=== PATIENT | female | born 1970 ===

== ENCOUNTER 2021-01-01 10:59 | Outpatient (REF) | payer OTHER, SELFPAY ==
[2021-01-01 13:59] LABS: MANUAL DIFF FLAG NO
[2021-01-01 14:11] LABS: Basophils Percent Auto 0.6 % (0-2); Eosinophils Absolute Auto 0.5 X10*3/uL (0.0-0.4); Eosinophils Percent Auto 7.2 % (0-4); Hematocrit 41.4 % (37-47); Hemoglobin 13.1 g/dl (12.0-16.0); Imm Gran Abs Auto 0.01 X10*3/uL (0.00-0.03); Imm Gran Pct Auto 0.2 % (0.0-0.4); Lymphocytes Absolute Auto 2.3 X10*3/uL (1.2-4.9); Lymphocytes Percent Auto 34.2 % (20-40); Mean Corpuscular HGB Conc 31.6 g/dl (31.0-35.0); Mean Corpuscular Hemoglobin 30.4 pg (27.0-33.0); Mean Corpuscular Volume 96.1 fL (80-98); Mean Platelet Volume 9.5 fL (9.4-12.3); Monocytes Absolute Auto 0.5 X10*3/uL (0.1-1.2); Monocytes Percent Auto 6.9 % (2-11); Neutrophils Absolute Auto 3.4 X10*3/uL (2.0-8.3); Neutrophils Percent Auto 50.9 % (45-73); Platelet Count 317 X10*3/uL (160-400); Red Blood Count 4.31 X10*6/uL (4.20-5.50); Red Cell Distribution Width 12.5 % (11.0-16.0); White Blood Count 6.6 X10*3/uL (4.8-10.8)
[2021-01-01 14:21] LABS: Alanine Aminotransferase 18 U/L (0-31); Anion Gap 16 (12-20); Aspartate Amino Transferase 16 U/L (5-31); Blood Urea Nitrogen 13 mg/dL (9-16); Carbon Dioxide 29 mmol/L (22-29); Chloride 100 mmol/L (96-108); Cholesterol 186 mg/dL; Estimated Glomerular Filt Rate > 60; Glucose Fasting 147 mg/dL (60-99); HDL Cholesterol 47 mg/dL; LDL Cholesterol Calculated 119 mg/dl; Potassium 4.9 mmol/L (3.3-5.1); Sodium 140 mmol/L (135-145); Triglycerides 103 mg/dL
[2021-01-01 14:45] LABS: TSH reflex Free T4 0.95 uIU/mL (0.32-4.0); Vitamin D 25-OH Total 31.4 ng/mL (>30)
[2021-01-01 14:50] LABS: Creatinine Urine 144.41 mg/dL; Microalbum/Creatinine Ratio Ur 7.6 ug/mg cr
== END 2021-01-01 11:00 | disposition home or self-care (01) ==
LOC: HO.LAB 10:59
PROVIDERS: PCP Internal Medicine; Visit Provider Internal Medicine
DX: E11.65 Type 2 diabetes mellitus with hyperglycemia (principal); E78.5 Hyperlipidemia, unspecified; I10 Essential (primary) hypertension; Z78.0 Asymptomatic menopausal state
CPT/HCPCS: 36415; 80048; 80061; 82043; 82306; 84443; 84450; 84460; 85025

== ENCOUNTER → 2021-02-17 08:33 | Outpatient (BNVA) | payer OTHER, SELFPAY | PROVIDERS: PCP Internal Medicine; Referring Provider Internal Medicine; Visit Provider Internal Medicine Gastroenterology | DX: Z01.818 Encounter for other preprocedural examination (principal) | CPT/HCPCS: 99202 ==

== ENCOUNTER 2021-02-27 08:12 | Outpatient (REF) | payer OTHER, SELFPAY ==
[2021-02-28 12:49] LABS: BV Int Neg Control Negative (Negative); BV Int Pos Control Positive (Positive)
== END 2021-02-27 08:13 | disposition home or self-care (01) ==
LOC: HO.LAB 08:12
PROVIDERS: PCP Internal Medicine; Visit Provider Obstetrics & Gynecology
DX: Z01.419 Encounter for gynecological examination (general) (routine) without abnormal findings (principal); Z11.3 Encounter for screening for infections with a predominantly sexual mode of transmission; N89.8 Other specified noninflammatory disorders of vagina
CPT/HCPCS: 87480; 87510; 87660

== ENCOUNTER 2021-02-28 09:58 | Outpatient (REF) | payer OTHER, SELFPAY ==
--- NOTE | ~2021-02-28 | MM_ITS ---
EXAMINATION: MM SCREENING DIGITAL BREAST TOMOSYNTHESIS, BILATERAL CLINICAL INFORMATION: Screening. Asymptomatic. The lifetime risk of breast cancer based on the Tyrer-Cuzick Model is 9%. COMPARISON: Outside mammography: 09/28/2019, 08/10/2018, 07/19/2017 ([facility]). TECHNIQUE: Digital breast tomosynthesis is performed in both the craniocaudal and mediolateral oblique views along with computer-aided detection (CAD). Synthesized 2D images are generated from the tomosynthesis. Additional bilateral CC views are provided. FINDINGS: There are scattered areas of fibroglandular density (ACR BI-RADS breast composition Category b). Breast tissue composition borders on predominantly fatty. Background stromal and fibroglandular markings are stable. There is a small oval stable nodular asymmetry medial periareolar left breast similar to prior exams. Neither breast shows interval mass or architectural abnormality or abnormal calcifications. No significant changes. MM/MM tomosynthesis screening BI IMPRESSION: No mammographic evidence of malignancy. No significant changes from prior outside exams. ASSESSMENT: BI-RADS 2: Benign RECOMMENDATION: Routine annual mammography screening. This patient's information was entered into a reminder system with a target due date for their next mammogram.
== END 2021-02-28 09:59 | disposition home or self-care (01) ==
LOC: HO.MAMMO 09:58
PROVIDERS: Visit Provider Internal Medicine
DX: Z12.31 Encounter for screening mammogram for malignant neoplasm of breast (principal)
CPT/HCPCS: 77063; 77067

== ENCOUNTER 2021-04-02 09:31 | Day surgery (SDC) | payer OTHER, SELFPAY ==
[2021-03-26 11:05] VITALS: BMI 43.3
--- NOTE | 2021-04-01 09:46 | P.CONAN_ITS ---
Documented by User: Janet Kochney 04/01/21 09:47 HPI - Anesthesia Eval Consult details Narrative: 50yo F for Colonoscopy *No blood products* [facility] Active Problems Active Problems: All Active Problems (Updated 02/27/21 @ 08:36 by Lauren Dutton MD) Morbid obesity due to excess calories (Acute) Postmenopause (Acute) Tendinitis of finger of right hand (Acute) Allergic rhinitis (Acute) Essential hypertension (Acute) Dyslipidemia (high LDL; low HDL) (Acute) Diabetes mellitus with hyperglycemia, without long-term current use of insulin (Acute) Past Medical History Medical History Allergic rhinitis Diabetes mellitus with hyperglycemia, without long-term current use of insulin Dyslipidemia (high LDL; low HDL) Essential hypertension Fibromyalgia Morbid obesity due to excess calories Postmenopause Refusal of blood product Tendinitis of finger of right hand Family History Family History Father No problems noted. Mother No problems noted. Surgical History Surgical History Hx of section Hx of umbilical hernia repair Social History Social History Alcohol intake: current Alcohol intake frequency: holidays/special occasions only Patient Tobacco Use Status: Never used Tobacco Use of substances other than those prescribed or required for medical reasons: No Are you DNR?: No Advance Directives Information Provided: No Recently lost weight without trying: No Eating poorly because of decreased appetite: No Nutrition Risks: No Nutritional Risk Gender identity: female Meds Allergies Allergy/AdvReac Type Severity Reaction Status Date / Time Seasonal Allergies Allergy Mild runny Verified 04/02/21 09:42 nose, watery eyes Home Medications Medication Instructions Recorded Confirmed Last Taken Type albuterol sulfate 90 mcg/actuation 2 puff PO QID PRN 01/01/21 03/26/21 Unknown History aerosol inhaler aspirin 81 mg tablet,delayed 81 mg PO DAILY 01/01/21 03/26/21 04/01/21 07:00 History release cholecalciferol (vitamin D3) 25 25 mcg PO DAILY 01/01/21 03/26/21 Unknown History mcg (1,000 unit) capsule enalapril maleate 10 mg tablet 10 mg PO DAILY 01/01/21 03/26/21 Unknown History magnesium glycinate 100 mg tablet 100 mg PO DAILY 01/01/21 03/26/21 Unknown History metformin 500 mg tablet,extended 1,000 mg PO DAILY 01/01/21 03/26/21 Unknown History release 24 hr simvastatin 40 mg tablet 40 mg PO BEDTIME 01/01/21 03/26/21 Unknown History Exam Exam Date and Time: April 01, 2021 0946 Height,Weight and Vital Signs: Height 5 ft 2 in Weight 107.501 kg Assessment and Plan Assessment Anesthesia Assessment: Chart Reviewed Documented by User: Yessenia Choudhary 04/02/21 10:04 [facility] Past Medical History Medical History Allergic rhinitis Diabetes mellitus with hyperglycemia, without long-term current use of insulin Dyslipidemia (high LDL; low HDL) Essential hypertension Fibromyalgia Morbid obesity due to excess calories Postmenopause Refusal of blood product Tendinitis of finger of right hand Family History Family History Father No problems noted. Mother No problems noted. Surgical History Surgical History Hx of section Hx of umbilical hernia repair Social History Social History Alcohol intake: current Alcohol intake frequency: holidays/special occasions only Patient Tobacco Use Status: Never used Tobacco Use of substances other than those prescribed or required for medical reasons: No Are you DNR?: No Advance Directives Information Provided: No Recently lost weight without trying: No Eating poorly because of decreased appetite: No Nutrition Risks: No Nutritional Risk Gender identity: female Meds Allergies Allergy/AdvReac Type Severity Reaction Status Date / Time Seasonal Allergies Allergy Mild runny Verified 04/02/21 09:42 nose, watery eyes Home Medications Medication Instructions Recorded Confirmed Last Taken Type albuterol sulfate 90 mcg/actuation 2 puff PO QID PRN 01/01/21 03/26/21 Unknown History aerosol inhaler aspirin 81 mg tablet,delayed 81 mg PO DAILY 01/01/21 03/26/21 04/01/21 07:00 History release cholecalciferol (vitamin D3) 25 25 mcg PO DAILY 01/01/21 03/26/21 Unknown History mcg (1,000 unit) capsule enalapril maleate 10 mg tablet 10 mg PO DAILY 01/01/21 03/26/21 Unknown History magnesium glycinate 100 mg tablet 100 mg PO DAILY 01/01/21 03/26/21 Unknown History metformin 500 mg tablet,extended 1,000 mg PO DAILY 01/01/21 03/26/21 Unknown History release 24 hr simvastatin 40 mg tablet 40 mg PO BEDTIME 01/01/21 03/26/21 Unknown History Exam Airway Mallampati Class: II TM Dist: >3cm Neck ROM: Full Loose/Missing/Broken Teeth: No Heart: RRR Lungs: CTA Assessment and Plan Assessment Anesthesia Assessment: Anesthesia Plan Discussed and Chart Reviewed Final Anesthetic Review NPO: Yes ASA Class: III Final Preanesthetic Review: Meds/Allgs Chart Reviewed, Consent Obtained/Reviewed and Anes Risks/Benef Reviewed Patient Risk: Intermediate Procedure Risk: Low Anesthetic Plan Anesthetic Plan: MAC: Disposition: Standard PACU
[2021-04-02] MEDS: Lactated Ringers 1,000 ML 100 ML IVCONT (10:15)
[2021-04-02 10:18] VITALS: BP 150/94; PULSE 105; RESP 18; TEMP 37; O2SAT 98
[2021-04-02 10:22] LABS: Glucose, Whole Blood 156 mg/dL (60-115)
--- NOTE | 2021-04-02 11:32 | MHC.SHP ---
Pre-Procedural Eval Section A Date of Service: 04/02/21 Section B Chief Complaint: screening Relevant Family History (Specify if Yes): No Relevant Social History: None Present Medications: see Short Stay Collaborative assessment Medical History: Significant History (Allergic rhinitis Diabetes mellitus with hyperglycemia, without long-term current use of insulin Dyslipidemia (high LDL; low HDL) Essential hypertension Fibromyalgia Morbid obesity due to excess calories Postmenopause Refusal of blood product Tendinitis of finger of right hand) History of Previous Operations: Relevant previous surgery/procedure and date(s) (, umbilical hernia repair) Allergies: Allergies Allergy/AdvReac Type Severity Reaction Status Date / Time Seasonal Allergies Allergy Mild runny Verified 04/02/21 09:42 nose, watery eyes Review of Systems Sugical H&P ROS: Negative: Constitution, Cardiovascular, Respiratory, Neurological, Psychiatric, Hem-Onc, Allergic/Immunologic, Gastrointestinal, Genitourinary, Musculoskeletal, Integumentary, Endocrine and Eyes/Ears/Nose/Throat Exam Surgical H&P Exam: Normal: HEENT, Normal: Heart, Normal: Lungs, Normal: Extremities, Normal: Abdomen, Normal: Skin and Normal: Neurological Plan Diagnosis/Plan: Unchanged I have reviewed the history and physical and performed a pertinent physical examination on my patient. No changes have occurred unless specified.
--- NOTE | 2021-04-02 11:33 | P.BOP_ITS ---
Brief Operative Note Date of Service: 04/02/21 Pre-op diagnosis: colon screening Post-op diagnosis: same Procedure: see op note Surgeon: Jerome England MD Anesthesia: MAC Was an Promotions Director used for this Procedure?: No Estimated blood loss (mL): 0 Condition: stable Disposition: PACU
--- NOTE | 2021-04-02 11:34 | W.PM.OPN ---
Operative Note Operative Note Date of Service: 04/02/21 Narrative: Operative Information Procedure Description: Colonoscopy COLONOSCOPY Instrument: Olympus variable stiffness adult scope 190L Colonoscopy Monitoring: Vital signs and clinical assessment, continuous EKG monitoring, Pulse oximetry, Carbon Dioxide monitoring and blood pressure monitoring were done throughout the procedure. Colon withdrawal time was 8 minutes. Procedure: The patient was placed in the left lateral decubitis position and pre-procedure medications were administered. After a digital rectal examination of the ano-rectum, the video colonoscope was inserted into the rectum and advanced through the colon to the cecum/TI. The colonoscope was slowly withdrawn in a retrograde panoramic fashion and the colon mucosa was carefully examined including a retroflexed view of the rectum. Findings and interventions are described below. Procedure Difficulty: Findings: Terminal Ileum-normal Cecum:normal Ascending Colon: normal Transverse Colon -normal Descending Colon:normal Sigmoid Colon: normal Rectum: Retroflexion with small internal hemorrhoids, grade I Anorectum - normal Colon preparation: Nikolski Bowel Preparation Scale Right colon; 2 Transverse colon: 3 Left colon; 2 (0 = Unprepared colon segment with mucosa not seen due to solid stool that cannot be cleared. 1 = Portion of mucosa of the colon segment seen, but other areas of the colon segment not well seen due to staining, residual stool and/or opaque liquid. 2 = Minor amount of residual staining, small fragments of stool and/or opaque liquid, but mucosa of colon segment seen well. 3 = Entire mucosa of colon segment seen well with no residual staining, small fragments of stool or opaque liquid) Impression and Post Procedure Diagnosis: internal hemorrhoids Plan: High fiber diet leaflet Avoid straining at stool, epsom salts and sitz bath, anusol supps or cream prn Repeat Colonoscopy in 10 years or earlier if clinically indicated Above findings were reviewed with the patient and relevant handouts were provided if indicated.
[2021-04-02 12:14] VITALS: BP 109/63; PULSE 111; RESP 14; TEMP 37.2; O2SAT 97
[2021-04-02 12:29] VITALS: BP 108/67; PULSE 102; RESP 18; TEMP 36.4; O2SAT 95
== END 2021-04-02 12:58 | disposition home or self-care (01) ==
PROVIDERS: PCP Internal Medicine; Visit Provider Internal Medicine Gastroenterology
PROC: 0DJD8ZZ Inspection of Lower Intestinal Tract, Via Natural or Artificial Opening Endoscopic (ICD-10-PCS; CPT 45378; principal; 2021-04-02 11:10)
DX: Z12.11 Encounter for screening for malignant neoplasm of colon (principal); K64.0 First degree hemorrhoids; I10 Essential (primary) hypertension; E66.01 Morbid (severe) obesity due to excess calories; E11.65 Type 2 diabetes mellitus with hyperglycemia; E78.5 Hyperlipidemia, unspecified; J30.9 Allergic rhinitis, unspecified; M79.7 Fibromyalgia; Z79.84 Long term (current) use of oral hypoglycemic drugs; Z79.899 Other long term (current) drug therapy
CPT/HCPCS: 45378; 82947; J2405; J2765

== ENCOUNTER → 2021-04-28 12:54 | Outpatient (BNVA) | payer OTHER, SELFPAY | PROVIDERS: PCP Internal Medicine; Referring Provider Internal Medicine; Visit Provider Internal Medicine Gastroenterology ==

== ENCOUNTER 2021-09-28 11:59 | Outpatient (REF) | payer OTHER, SELFPAY ==
[2021-09-28 13:14] LABS: Influenza A PCR NEGATIVE (Negative); Influenza B PCR NEGATIVE (Negative); Resp Syncy Virus RNA Qual PCR NEGATIVE (Negative); SARS COV2 PCR INHOUSE NEGATIVE (Negative)
== END 2021-09-28 12:00 | disposition home or self-care (01) ==
LOC: HO.LNP 11:59
PROVIDERS: Visit Provider Physician Assistant
DX: B34.9 Viral infection, unspecified (principal); Z20.822 Contact with and (suspected) exposure to COVID-19
CPT/HCPCS: 0241U

== ENCOUNTER 2022-03-06 09:40 | Outpatient (REF) | payer OTHER, SELFPAY ==
--- NOTE | ~2022-03-06 | MM_ITS ---
EXAMINATION: MM SCREENING DIGITAL BREAST TOMOSYNTHESIS, BILATERAL CLINICAL INFORMATION: Screening. Asymptomatic. The lifetime risk of breast cancer based on the Tyrer-Cuzick Model is 8%. COMPARISON: Mammography: 02/28/2021, outside mammography 09/28/2019, 08/10/2018 ([facility]). TECHNIQUE: Digital breast tomosynthesis is performed in both the craniocaudal and mediolateral oblique views along with computer-aided detection (CAD). Synthesized 2D images are generated from the tomosynthesis. FINDINGS: There are scattered areas of fibroglandular density (ACR BI-RADS breast composition Category b). Background stromal and fibroglandular densities are stable. Parenchymal pattern borders on predominantly fatty. There are no significant masses, abnormal calcifications, or other abnormalities. The axilla and skin contours are unremarkable. MM/MM tomosynthesis screening BI IMPRESSION: No mammographic evidence of malignancy. ASSESSMENT: BI-RADS 1: Negative RECOMMENDATION: Routine annual mammography screening. This patient's information was entered into a reminder system with a target due date for their next mammogram.
== END 2022-03-06 09:41 | disposition home or self-care (01) ==
LOC: HO.MAMMO 09:40
PROVIDERS: PCP Internal Medicine; Visit Provider Internal Medicine
DX: Z12.31 Encounter for screening mammogram for malignant neoplasm of breast (principal)
CPT/HCPCS: 77063; 77067

== ENCOUNTER 2022-09-01 07:36 | Outpatient (REF) | payer OTHER, SELFPAY ==
[2022-09-01 11:23] LABS: MANUAL DIFF FLAG NO
[2022-09-01 11:33] LABS: Basophils Percent Auto 0.6 % (0-2); Eosinophils Absolute Auto 0.3 X10*3/uL (0.0-0.4); Eosinophils Percent Auto 3.7 % (0-4); Imm Gran Abs Auto 0.03 X10*3/uL (0.00-0.03); Imm Gran Pct Auto 0.4 % (0.0-0.4); Lymphocytes Absolute Auto 2.7 X10*3/uL (1.2-4.9); Mean Corpuscular HGB Conc 31.7 g/dl (31.0-35.0); Mean Corpuscular Hemoglobin 31.1 pg (27.0-33.0); Mean Corpuscular Volume 98.1 fL (80.0-98.0); Mean Platelet Volume 9.7 fL (9.4-12.3); Monocytes Absolute Auto 0.5 X10*3/uL (0.1-1.2); Monocytes Percent Auto 7.3 % (2-11); Neutrophils Absolute Auto 3.2 x10*3/uL (2.0-8.3); Platelet Count 301 X10*3/uL (160-400); Red Blood Count 4.18 X10*6/uL (4.20-5.50); Red Cell Distribution Width 12.8 % (11.0-16.0); White Blood Count 6.7 X10*3/uL (4.8-10.8)
[2022-09-01 11:42] LABS: Estimated Average Glucose 229 mg/dL; Hemoglobin A1c % 9.6 %
[2022-09-01 12:37] LABS: Creatinine Urine 220.93 mg/dL; Microalbum/Creatinine Ratio Ur 8.1 ug/mg cr
[2022-09-01 12:39] LABS: Alanine Aminotransferase 20 U/L (0-31); Alkaline Phosphatase 77 U/L (39-117); Anion Gap 14 (12-20); Aspartate Amino Transferase 14 U/L (5-31); Bilirubin Total 0.2 mg/dL (0.0-1.0); Blood Urea Nitrogen 11 mg/dL (9-16); Calcium 8.4 mg/dL (8.4-10.2); Carbon Dioxide 29 mmol/L (22-29); Chloride 101 mmol/L (96-108); Cholesterol 232 mg/dL; Estimated Glomerular Filt Rate > 60; Glucose Fasting 232 mg/dL (60-99); HDL Cholesterol 45 mg/dL; LDL Cholesterol Calculated 154 mg/dl; Potassium 4.6 mmol/L (3.3-5.1); Sodium 139 mmol/L (135-145); TSH reflex Free T4 1.88 uIU/mL (0.32-4.0); Total Protein 7.4 g/dL (6.5-8.0); Triglycerides 165 mg/dL; Vitamin D 25-OH Total 21.8 ng/mL (>30)
[2022-09-02 08:59] LABS: Follicle Stimulating Hormone 7.7 mIU/mL
== END 2022-09-01 07:37 | disposition home or self-care (01) ==
LOC: HO.HMGCLDS 07:36
PROVIDERS: Advanced Practice Midwife; PCP Internal Medicine; Visit Provider Internal Medicine
DX: E11.65 Type 2 diabetes mellitus with hyperglycemia (principal); E66.01 Morbid (severe) obesity due to excess calories; E78.5 Hyperlipidemia, unspecified; J45.20 Mild intermittent asthma, uncomplicated; K58.0 Irritable bowel syndrome with diarrhea; R23.2 Flushing; Z78.0 Asymptomatic menopausal state
CPT/HCPCS: 36415; 80053; 80061; 82043; 82306; 83001; 83036; 84443; 85025

== ENCOUNTER 2022-09-21 12:38 | Outpatient (AMB) | payer OTHER, SELFPAY ==
--- NOTE | 2022-09-21 12:46 | A.OFFPC_ITS ---
Vital Signs 09/21/22 12:47 Height 5 ft 2 in Weight 230 lb BMI 42.0 BP 124/90 H Blood Pressure Location Lt brachial Position Sitting Pulse 95 Pulse Source Pulse Oximeter Pulse Oximetry (%) 97 Oxygen Delivery Method Room Air Intake Visit Reasons: f/u DM Intake Note: Pt is here today to f/u DM Allergies Seasonal Allergies Allergy (Mild, Verified 08/05/23 10:49) runny nose, watery eyes Medication List - Last Reconciled 09/21/22 by Jayshree Marcos MD albuterol sulfate 90 mcg/actuation 2 puffs PO QID PRN albuterol sulfate 2.5 mg (3 mL) inhalation QID PRN blood sugar diagnostic (FreeStyle Lite Strips) check fasting blood sugar twice a day before a meal blood sugar diagnostic (FreeStyle Lite Strips) Check fasting blood sugar twice a day before meals blood-glucose meter (FreeStyle Lite Meter kit) Fasting glucose twice a day before meals and keep a record cholecalciferol (vitamin D3) 1,250 mcg PO QWEEK 3 months enalapril maleate 10 mg PO DAILY loratadine 10 mg PO DAILY metformin 1,000 mg PO DAILY naproxen 500 mg PO DAILY PRN simvastatin 40 mg PO BEDTIME Tobacco use date assessed: 09/21/22 HPI f/u DM HPI Details 51-year-old lady with diabetes mellitus, dyslipidemia and hypertension, here today for follow-up. She is currently taking metformin, simvastatin and enalapril maleate. Recent labs showed hemoglobin A1c at 9.6% and LDL cholesterol above normal limits. She admits to letting herself go more recently after a sudden, traumatic loss of her brother. Has not been checking her blood sugar and has not been taking her metformin on regular basis [facility] Medical History Toe injury Mixed dyslipidemia Vitamin D deficiency Irritable bowel syndrome with diarrhea Environmental and seasonal allergies Mild intermittent asthma Arthralgia Refusal of blood product Fibromyalgia Morbid obesity due to excess calories Postmenopause Tendinitis of finger of right hand Essential hypertension Dyslipidemia (high LDL; low HDL) Diabetes mellitus with hyperglycemia, without long-term current use of insulin Surgical History Hx of colonoscopy Hx of umbilical hernia repair Hx of section Family History Father No problems noted. Mother No problems noted. 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 Depression Screening Interpretation: Negative Source: Developed by Drs. Paul Ramirez, Yue Roman, Luis Perry and colleagues, with an educational billy from [employer]. Thrive Questionnaire Date Thrive assessed: 04/09/21 KAMRAN-7 AMB Questionnaire KAMRAN-7 Date KAMRAN - 7 assessed: 03/18/22 Source: Developed by Drs. Paul Ramirez, Yue Roman, Luis Perry and colleagues, with an educational billy from [employer]. Review of Systems Const Reports no additional complaints and Reports fatigue Eyes Denies change in vision ENT Reports no additional complaints Card Denies rapid heart rate, Denies dyspnea and Denies dyspnea on exertion Resp Denies dyspnea and Denies dyspnea on exertion GI Denies dyspepsia and Denies heartburn Reports no additional complaints Musc Denies arthralgias and Denies muscle cramps Skin/Breast Denies breast pain, Denies breast mass, Denies lesions and Denies rash Neuro Denies focal weakness, Denies Other visual disturbances and Denies Sensory deficit (Neuro) Endo Reports fatigue, Reports polydipsia and Reports polyuria Kamran/Lymph Reports no additional complaints Physical exam (Primary Care) Vital Signs: Last Vital Signs Pulse 95 09/21/22 12:47 BP 124/90 H 09/21/22 12:47 Pulse Ox 97 09/21/22 12:47 Oxygen Delivery Method Room Air 09/21/22 12:47 BMI result Body Mass Index 42.0 BMI Assessment/Plan discussion: High BMI High, discussed plan: lifestyle, weight reduction, dietary and physical activity Tobacco/Smoking Status: Tobacco use Status Tobacco use date assessed 09/21/22 09/21/22 12:50 Patient Tobacco Use Status Never used Tobacco 09/21/22 12:50 e-Cigarette/Vaping Use Never Used 09/21/22 12:50 Depression Screening Interpretation: Negative Thrive Assessment: Date of Thrive Assessment Date Thrive assessed 04/09/21 09/21/22 12:50 Const General: comfortable, no acute distress and alert Nutritional Appearance: obese morbidly obese Orientation/consciousness: patient oriented x3 HENMT Head: Yes normocephalic Ears: external ears normal General nose exam: Normal external nose present Face and sinus: Yes face symmetric Mouth: Normal oral and palatal mucosa present, tongue normal, oropharynx normal and moist mucous membranes abnormal Eyes General: appearance normal, both eyes and all related structures Neck Neck: Yes full ROM, Yes no lymphadenopathy and Yes supple Thyroid: Thyroid normal Resp Effort & Inspection: normal respiratory effort and able to speak in complete sentences Auscultation: clear to auscultation bilaterally Cardio Rate: regular rate Rhythm: regular rhythm Heart sounds: S1 normal heart sound present and S2 normal heart sound present GI Inspection: Yes obesity Palpation (GI): Soft to palpation, nontender, no guarding and no masses Auscultation: normal bowel sounds General: Yes no CVA tenderness and Yes deferred Back/Spine/Pelvis Back: no CVA tenderness and No back tenderness Skin General skin exam: no rashes or lesions noted Neuro General: patient oriented x3, gait normal, tone normal, moves all extremities, Normal light touch and pain sensation, no focal motor deficits, CN's II-XI intact bilaterally and normal sensation to monofilament Cognition (Neuro): normal cognition Gait exam (Neuro): Normal gait present Sensory Exam: No Sensory deficit (Neuro) Extrem General: Yes full ROM, Yes no joint enlargement, Yes no clubbing, cyanosis or edema, Yes no pedal edema, Yes no calf tenderness and Yes normal gait Results Reviewed Results Reviewed: Laboratory Tests 09/01/22 07:42 Estimat Average Glucose 229 Hemoglobin A1c % 9.6 ENTERED: 09/01/22 [facility]: ORDERED: CBC Auto Diff Test Result Flag Reference Site WBC 6.7 4.8-10.8 X10*3/uL RBC 4.18 L 4.20-5.50 X10*6/uL HGB 13.0 12.0-16.0 g/dl HCT 41.0 37.0-47.0 % MCV 98.1 H 80.0-98.0 fL MCH 31.1 27.0-33.0 pg MCHC 31.7 31.0-35.0 g/dl RDW 12.8 11.0-16.0 % ENTERED: 09/01/22 [facility]: ORDERED: CMP Fast, Lipid Panel, Vitamin D 25-OH, TSH Rflx Test Result Flag Reference Site Sodium 139 135-145 mmol/L Potassium 4.6 3.3-5.1 mmol/L CL 101 96-108 mmol/L CO2 29 22-29 mmol/L Gap 14 12-20 BUN 11 9-16 mg/dL Creat 0.84 0.5-1.4 mg/dL EGFR > 60 NOTE: For -[place] individuals, multiply the result by 1.210. Chronic Kidney Disease: Estimated GFR < 60 mL/min/1.73m2 Severe Kidney Disease: Estimated GFR < 15 mL/min/1.73m2 FBS 232 H 60-99 mg/dL A fasting glucose of 126 mg/dl or greater on more than one occasion is considered diagnostic of diabetes. CA 8.4 # 8.4-10.2 mg/dL Total Bili 0.2 0.0-1.0 mg/dL AST (GOT) 14 5-31 U/L ALT (GPT) 20 0-31 U/L Protein, Total 7.4 6.5-8.0 g/dL Alb 4.0 3.5-5.0 g/dL Triglyceride 165 mg/dL Desirable Triglyceride: less than 150 mg/dL Borderline High Triglyceride 150-199 mg/dL High Triglyceride: 200-499 mg/dL Very High Triglyceride: greater than or equal to 5OO mg/dL Chol 232 mg/dL Desirable Cholesterol: less than 200 mg/dL Borderline High Cholesterol: 200-239 mg/dL High Cholesterol: greater than 239 mg/dL LDL Calculated 154 mg/dl Desirable LDL: less than 100 mg/dL Near Optimal/Above Optimal LDL: 110-129 mg/dL Borderline High LDL: 130-159 mg/dL High LDL: 160-189 mg/dL Very High LDL: greater than or equal to 190 mg/dL HDL 45 mg/dL Desirable HDL: greater than 40 mg/dL Note: This HDL assay may give artificially low results in patients with liver disease. Alk Phos 77 39-117 U/L Vit D 25-OH Tot 21.8 >30 ng/mL Health Based Reference Values* < 20 ng/mL Deficient 20-30 ng/mL Insufficient > 30 ng/mL Sufficient *Binh FELIX. N Engl J Med. 2007;357:266-280 Care must be taken in interpreting Vitamin D results from different laboratories and methodologies. Published data demonstrated that results from patients undergoing hemodialysis may show a negative bias when tested with various automated 25-OH vitamin D assays when compared to LC-MS/MS. When testing samples from patients whose predominant form of Vitamin D is Vitamin D2, such as patients receiving Vitamin D2 supplementation, results that are subtherapeutic should be confirmed with another method such as LC-MS/MS. TSH 1.88 0.32-4.0 uIU/mL PLT 301 160-400 X10*3/uL Assessment and Plan Assessment & Plan (1) Diabetes mellitus with hyperglycemia, without long-term current use of insulin: Comment: NIDDM Code(s): E11.65 - Type 2 diabetes mellitus with hyperglycemia Qualifiers: Diabetes mellitus type: type 2 Qualified Code(s): E11.65 - Type 2 diabetes mellitus with hyperglycemia Plan: Advised to start taking her metformin a 1000 mg 1 tablet twice a day with meals on a regular basis, check fasting blood sugar at home, maintain log and bring to next appointment for review. Reinforced diabetic diet and regular exercise with patient. Counseled regarding importance of yearly diabetes retinopathy screening. Patient advised to inspect feet daily, for any signs of injury, callus or infection. Compliance with diet and regular exercise again stressed. Referred to development educator for more guidance. Return to clinic in 3 months for follow (2) Mixed dyslipidemia: Code(s): E78.2 - Mixed hyperlipidemia Plan: Reviewed recent fasting lipid profile with patient with levels not at goal. Stressed importance of taking rosuvastatin 10 mg once a day, in addition to adherence to low-cholesterol diet and regular exercise, at least 30 minutes 3 to 4 times a week. Advised patient to make healthy food choices, eat more fruits, vegetables, whole grains, wild caught fish and low-fat dairy. Limit amount of meat and fried or fatty food products, as well as processed foods and fast foods. Follow-up scheduled with repeat fasting lipid panel in 3 months. (3) Vitamin D deficiency: Code(s): E55.9 - Vitamin D deficiency, unspecified Plan: Advised to start taking [id number] vitamin D3 at 5000 units once a day for the next 3 months. Will recheck levels again on next visit. Orders: Orders Microalbumin, Random (w Creat) 3 Months E55.9 - Vitamin D deficiency, unspecified, E11.65 - Type 2 diabetes mellitus with hyperglycemia, Z78.0 - Asymptomatic menopausal state, E78.2 - Mixed hyperlipidemia Alanine Aminotransferase 3 Months E55.9 - Vitamin D deficiency, unspecified, E11.65 - Type 2 diabetes mellitus with hyperglycemia, Z78.0 - Asymptomatic menopausal state, E78.2 - Mixed hyperlipidemia Vitamin D 25-OH Total 3 Months E55.9 - Vitamin D deficiency, unspecified, E11.65 - Type 2 diabetes mellitus with hyperglycemia, Z78.0 - Asymptomatic menopausal state, E78.2 - Mixed hyperlipidemia Hemoglobin A1c 3 Months E55.9 - Vitamin D deficiency, unspecified, E11.65 - Type 2 diabetes mellitus with hyperglycemia, Z78.0 - Asymptomatic menopausal state, E78.2 - Mixed hyperlipidemia Lipid Panel 3 Months E55.9 - Vitamin D deficiency, unspecified, E11.65 - Type 2 diabetes mellitus with hyperglycemia, Z78.0 - Asymptomatic menopausal state, E78.2 - Mixed hyperlipidemia Aspartate Amino Transferase 3 Months E55.9 - Vitamin D deficiency, unspecified, E11.65 - Type 2 diabetes mellitus with hyperglycemia, Z78.0 - Asymptomatic menopausal state, E78.2 - Mixed hyperlipidemia Basic Metabolic Panel Fasting 3 Months E55.9 - Vitamin D deficiency, unspecified, E11.65 - Type 2 diabetes mellitus with hyperglycemia, Z78.0 - Asymptomatic menopausal state, E78.2 - Mixed hyperlipidemia Medications: New blood sugar diagnostic (FreeStyle Lite Strips) Check fasting blood sugar twice a day before meals 100 ea 0RF E11.65 - Type 2 diabetes mellitus with hyperglycemia cholecalciferol (vitamin D3) 1,250 mcg PO QWEEK 13 caps 0RF 3 months E55.9 - Vitamin D deficiency, unspecified blood-glucose meter (FreeStyle Lite Meter kit) Fasting glucose twice a day before meals and keep a record 1 ea 0RF E11.65 - Type 2 diabetes mellitus with hyperglycemia Changed From metformin 1,000 mg PO DAILY E11.65 - Type 2 diabetes mellitus with hyperglycemia To metformin 1,000 mg PO BIDWMEAL 60 tabs 5RF E11.65 - Type 2 diabetes mellitus with hyperglycemia Coding Level of Care Code Est Pt Level 4 (06091) Diagnoses Type 2 diabetes mellitus with hyperglycemia, without long-term current use of insulin E11.65 Diabetes mellitus type: type 2 Mixed dyslipidemia E78.2 Vitamin D deficiency E55.9
[2022-09-21 12:47] VITALS: BP 124/90; PULSE 95; O2SAT 97; BMI 42.0
== END 2022-09-21 13:39 | disposition home or self-care (01) ==
LOC: HO.HMGC 12:38
PROVIDERS: PCP Internal Medicine; Visit Provider Internal Medicine
DX: E11.65 Type 2 diabetes mellitus with hyperglycemia (principal); E78.2 Mixed hyperlipidemia; E55.9 Vitamin D deficiency, unspecified
CPT/HCPCS: 99214; 99499

== ENCOUNTER 2022-12-09 10:22 | Outpatient (REF) | payer OTHER, SELFPAY ==
--- NOTE | ~2022-12-09 | XR_ITS ---
EXAMINATION: XR TOES, RIGHT CLINICAL INFORMATION: Unspecified injury right foot. COMPARISON: None available. TECHNIQUE: 3 views of the right toes were obtained. FINDINGS: There is an oblique nondisplaced fracture distal segment proximal phalanx fifth digit with mild soft tissue swelling. No additional bony abnormality seen. Joint spaces are maintained normal. XR/XR toe RT min 2V IMPRESSION: Nondisplaced oblique fracture distal segment proximal phalanx fifth digit with mild soft tissue swelling.
[2022-12-09 11:31] LABS: Estimated Average Glucose 229 mg/dL; Hemoglobin A1c % 9.6 %
[2022-12-09 12:12] LABS: Alanine Aminotransferase 24 U/L (0-31); Anion Gap 16 (12-20); Aspartate Amino Transferase 18 U/L (5-31); Blood Urea Nitrogen 11 mg/dL (9-16); Calcium 9.2 mg/dL (8.4-10.2); Carbon Dioxide 28 mmol/L (22-29); Chloride 101 mmol/L (96-108); Cholesterol 263 mg/dL; Estimated Glomerular Filt Rate > 60; Glucose Fasting 248 mg/dL (60-99); HDL Cholesterol 44 mg/dL; LDL Cholesterol Calculated 187 mg/dl; Potassium 4.8 mmol/L (3.3-5.1); Sodium 140 mmol/L (135-145); Triglycerides 163 mg/dL
[2022-12-09 12:47] LABS: Vitamin D 25-OH Total 31.3 ng/mL (>30)
[2022-12-09 15:10] LABS: Creatinine Urine 228.54 mg/dL; Microalbum/Creatinine Ratio Ur 94.9 ug/mg cr
== END 2022-12-09 10:23 | disposition home or self-care (01) ==
LOC: HO.HMGCX 10:22
PROVIDERS: Absent Provider Internal Medicine; PCP Internal Medicine; Visit Provider Internal Medicine
DX: S99.921A Unspecified injury of right foot, initial encounter (principal); E55.9 Vitamin D deficiency, unspecified; E11.65 Type 2 diabetes mellitus with hyperglycemia; Z78.0 Asymptomatic menopausal state; E78.2 Mixed hyperlipidemia; X58.XXXA Exposure to other specified factors, initial encounter; Y93.9 Activity, unspecified; Y92.9 Unspecified place or not applicable; Y99.9 Unspecified external cause status
CPT/HCPCS: 36415; 73660; 80048; 80061; 82043; 82306; 83036; 84450; 84460

== ENCOUNTER 2022-12-21 11:59 | Outpatient (AMB) | payer OTHER, SELFPAY ==
--- NOTE | 2022-12-21 12:12 | A.OFFPC_ITS ---
Vital Signs 12/21/22 12:13 Height 5 ft 2 in Weight 227 lb BMI 41.5 BP 120/84 Blood Pressure Location Lt brachial Position Sitting Pulse 95 Pulse Source Pulse Oximeter Pulse Oximetry (%) 97 Oxygen Delivery Method Room Air Intake Visit Reasons: 3 month follow up DM Intake Note: Pt is here today for her 3 months f/u DM Allergies Seasonal Allergies Allergy (Mild, Verified 11/20/23 17:21) runny nose, watery eyes Medication List - Last Reconciled 12/21/22 by Jayshree Marcos MD albuterol sulfate 90 mcg/actuation 2 puffs PO QID PRN albuterol sulfate 2.5 mg (3 mL) inhalation QID PRN blood sugar diagnostic (FreeStyle Lite Strips) check fasting blood sugar twice a day before a meal blood sugar diagnostic (FreeStyle Lite Strips) Check fasting blood sugar twice a day before meals blood-glucose meter (FreeStyle Lite Meter kit) Fasting glucose twice a day before meals and keep a record enalapril maleate 10 mg PO DAILY loratadine 10 mg PO DAILY meclizine 25 mg PO BID PRN 7 days metformin 1,000 mg PO BIDWMEAL naproxen 500 mg PO DAILY PRN simvastatin 40 mg PO BEDTIME Tobacco use date assessed: 12/21/22 HPI 3 month follow up DM HPI Details 53-year-old lady here today for follow-u p on her diabetes mellitus and hyperlipidemia. She is on metformin and simvastatin but admits to not taking these medications on a regular basis and has not been compliant with diet or getting regular exercise. Latest hemoglobin A1cs at 9.6% and recent fasting lipids showed an LDL cholesterol at 187 mg/dL. FORMERLY [facility] Medical History Toe injury Mixed dyslipidemia Vitamin D deficiency Irritable bowel syndrome with diarrhea Environmental and seasonal allergies Mild intermittent asthma Arthralgia Refusal of blood product Fibromyalgia Morbid obesity due to excess calories Postmenopause Tendinitis of finger of right hand Essential hypertension Dyslipidemia (high LDL; low HDL) Diabetes mellitus with hyperglycemia, without long-term current use of insulin Surgical History Hx of colonoscopy Hx of umbilical hernia repair Hx of section Family History Father No problems noted. Mother No problems noted. 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 70732 - PHQ-9 Billing: Patient declined-do not bill Source: Developed by Drs. Paul Ramirez, Yue Roman, Luis Perry and colleagues, with an educational billy from [employer]. Thrive Questionnaire Declines Thrive assessment: No Date Thrive assessed: 12/21/22 I am a: Patient What is your living situation today?: I have a steady place to live Within the past 12 months, did the food you bought not last and you didn't have the money to get more?: Never true Within the past 12 months, did you worry whether your food would run out before you got money to buy more?: Never true Do you have trouble paying for medicines?: No Do you have trouble getting transportation to medical appointments?: No Do you have trouble paying your heating and electricity bill?: No Do you have trouble taking care of your child, family member or friend?: No Do you have trouble with day-to-day activities such as bathing, preparing meals, shopping, managing finances, etc.?: No Are you currently unemployed and looking for a job?: No Are you interested in more education?: No AUDIT C Alcohol Use Questionnaire (AUDIT-C) 1. How often do you have a drink containing alcohol?: Monthly or less 2. How many drinks containing alcohol do you have on a typical day when you are drinking?: 1 or 2 3. How often do you have six or more drinks on one occasion?: Never Total Score: 1 KAMRAN-7 AMB Questionnaire KAMRAN-7 Date KAMRAN - 7 assessed: 12/21/22 Source: Developed by DrsDvay Ramirez, Yue Roman, Luis Perry and colleagues, with an educational billy from [employer]. KAMRAN-7 Assessment Billing KAMRAN-7 Assessment Tool: pt declined-do not bill Review of Systems Const Reports no additional complaints Eyes Reports no additional complaints ENT Reports no additional complaints Card Denies dyspnea Resp Denies chest congestion, Denies cough and Denies dyspnea GI Reports no additional complaints Denies difficulty voiding, Reports nocturia, Denies dysuria and Denies urinary incontinence Musc Reports no additional complaints Neuro Reports no additional complaints and Denies Sensory deficit (Neuro) Endo Reports polydipsia and Reports polyuria Kamran/Lymph Reports no additional complaints Physical exam (Primary Care) Vital Signs: Last Vital Signs Pulse 95 12/21/22 12:13 BP 120/84 12/21/22 12:13 Pulse Ox 97 12/21/22 12:13 Oxygen Delivery Method Room Air 12/21/22 12:13 BMI result Body Mass Index 41.5 BMI Assessment/Plan discussion: High BMI High, discussed plan: lifestyle, weight reduction, dietary and physical activity Tobacco/Smoking Status: Tobacco use Status Tobacco use date assessed 12/21/22 12/21/22 12:16 Patient Tobacco Use Status Never used Tobacco 12/21/22 12:16 e-Cigarette/Vaping Use Never Used 12/21/22 12:16 Thrive Assessment: Date of Thrive Assessment Date Thrive assessed 12/21/22 12/21/22 12:19 Const General: cooperative, comfortable, no acute distress and alert Nutritional Appearance: obese morbidly obese Orientation/consciousness: patient oriented x3 HENMT Head: Yes normocephalic and Yes atraumatic Ears: external ears normal, TM's normal bilaterally and EAC's normal General nose exam: Normal external nose present and No nasal discharge present Face and sinus: Yes sinuses nontender and Yes face symmetric Mouth: Normal oral and palatal mucosa present, tongue normal, oropharynx normal and moist mucous membranes abnormal Eyes General: appearance normal, both eyes and all related structures Alignment and Position: alignment normal Eyelids: Yes eyelids normal Conjunctivae: conjunctivae normal Sclerae: sclerae normal Pupils: Equal, round and reactive pupils present EOM: EOMs intact bilaterally Neck Neck: Yes full ROM, Yes no lymphadenopathy and Yes supple Thyroid: Thyroid normal Chest Chest palpation & inspection: normal inspection of the chest Breast/axilla inspection: normal inspection of the breasts Breast/axilla palpation: normal palpation of the breasts Resp Effort & Inspection: normal respiratory effort and able to speak in complete sentences Auscultation: clear to auscultation bilaterally Cardio Rate: regular rate Rhythm: regular rhythm Heart sounds: S1 normal heart sound present and S2 normal heart sound present GI Inspection: Yes obesity Palpation (GI): Soft to palpation, nontender, no guarding and no masses Auscultation: normal bowel sounds General: Yes no CVA tenderness and Yes deferred Back/Spine/Pelvis Back: no CVA tenderness and No back tenderness Skin General skin exam: no rashes or lesions noted Neuro General: patient oriented x3, gait normal, tone normal, moves all extremities, Normal light touch and pain sensation, no focal motor deficits, CN's II-XI intact bilaterally and normal sensation to monofilament Cranial nerves: Yes Equal, round and reactive pupils present Cognition (Neuro): normal cognition Gait exam (Neuro): Normal gait present Sensory Exam: No Sensory deficit (Neuro) Extrem General: Yes full ROM, Yes no joint enlargement, Yes no clubbing, cyanosis or edema, Yes no pedal edema, Yes no calf tenderness and Yes normal gait Psych Appearance: grossly normal Mental Status: mental status grossly normal Speech and movement: Normal speech and movement present Affect: normal affect Attitude: cooperative Thought process: Normal thought process present Thought content: Normal thought content present Results Reviewed Results Reviewed: NTERED: 12/09/22-[address]: Akiko Ramirez MD ORDERED: Met Prof Fast, AST, ALT, Lipid Panel, Vitamin D 25-OH Test Result Flag Reference Site Sodium 140 135-145 mmol/L Potassium 4.8 3.3-5.1 mmol/L CL 101 96-108 mmol/L CO2 28 22-29 mmol/L Gap 16 12-20 BUN 11 9-16 mg/dL Creat 0.83 0.5-1.4 mg/dL EGFR > 60 NOTE: For -[place]ongolian individuals, multiply the result by 1.210. Chronic Kidney Disease: Estimated GFR < 60 mL/min/1.73m2 Severe Kidney Disease: Estimated GFR < 15 mL/min/1.73m2 FBS 248 H 60-99 mg/dL A fasting glucose of 126 mg/dl or greater on more than one occasion is considered diagnostic of diabetes. CA 9.2 # 8.4-10.2 mg/dL AST (GOT) 18 5-31 U/L ALT (GPT) 24 0-31 U/L Triglyceride 163 mg/dL Desirable Triglyceride: less than 150 mg/dL Borderline High Triglyceride 150-199 mg/dL High Triglyceride: 200-499 mg/dL Very High Triglyceride: greater than or equal to 5OO mg/dL Chol 263 mg/dL Desirable Cholesterol: less than 200 mg/dL Borderline High Cholesterol: 200-239 mg/dL High Cholesterol: greater than 239 mg/dL LDL Calculated 187 mg/dl Desirable LDL: less than 100 mg/dL Near Optimal/Above Optimal LDL: 110-129 mg/dL Borderline High LDL: 130-159 mg/dL High LDL: 160-189 mg/dL Very High LDL: greater than or equal to 190 mg/dL HDL 44 mg/dL Desirable HDL: greater than 40 mg/dL Note: This HDL assay may give artificially low results in patients with liver disease. Vit D 25-OH Tot 31.3 >30 ng/mL Health Based Reference Values* < 20 ng/mL Deficient 20-30 ng/mL Insufficient > 30 ng/mL Sufficient Laboratory Tests 12/09/22 10:33 Estimat Average Glucose 229 Hemoglobin A1c % 9.6 Urine Creatinine 228.54 Urine Microalbumin 217.0 Microalb/Creat Ratio 94.9 Assessment and Plan Assessment & Plan (1) Diabetes mellitus with hyperglycemia, without long-term current use of insulin: Comment: NIDDM Code(s): E11.65 - Type 2 diabetes mellitus with hyperglycemia Qualifiers: Diabetes mellitus type: type 2 Qualified Code(s): E11.65 - Type 2 diabetes mellitus with hyperglycemia Plan: Continue with metformin a 1000 mg 1 tab twice a day with meals, stressed importance of taking medications as directed, reinforce compliance with diabetic diet and getting regular exercise Counseled regarding importance of yearly diabetes retinopathy screening. Patient advised to inspect feet daily, for any signs of injury, callus or infection. Compliance with diet and regular exercise again stressed. Blood pressure goal is less than 130/80, goal LDL is less than 100 and goal hemoglobin A1c is less than 7% (2) Mixed dyslipidemia: Code(s): E78.2 - Mixed hyperlipidemia Plan: Reviewed recent fasting lipid profile with patient with elevated LDL cholesterol . Takes simvastatin 40 mg at bedtime, reinforce compliance with medication, in addition to adherence to low-cholesterol diet and regular exercise, at least 30 minutes 3 to 4 times a week. Advised patient to make healthy food choices, eat more fruits, vegetables, whole grains, wild caught fish and low-fat dairy. Limit amount of meat and fried or fatty food products, as well as processed foods and fast foods. Coding Level of Care Code Est Pt Level 4 (67326) Diagnoses Type 2 diabetes mellitus with hyperglycemia, without long-term current use of insulin E11.65 Diabetes mellitus type: type 2 Mixed dyslipidemia E78.2
[2022-12-21 12:13] VITALS: BP 120/84; PULSE 95; O2SAT 97; BMI 41.5
== END 2022-12-21 13:16 | disposition home or self-care (01) ==
LOC: HO.HMGC 11:59
PROVIDERS: PCP Internal Medicine; Visit Provider Internal Medicine
DX: E11.65 Type 2 diabetes mellitus with hyperglycemia (principal); E78.2 Mixed hyperlipidemia
CPT/HCPCS: 99214; 99499

== ENCOUNTER 2022-12-27 10:06 | Outpatient (REF) | payer OTHER, SELFPAY | END 2022-12-27 10:07 | disposition home or self-care (01) | LOC: HO.HOSX 10:06 | PROVIDERS: Visit Provider Physician Assistant | DX: Z13.89 Encounter for screening for other disorder (principal) ==

== ENCOUNTER 2023-04-01 08:15 | Outpatient (REF) | payer OTHER, SELFPAY ==
--- NOTE | ~2023-04-01 | MM_ITS ---
EXAMINATION: MM SCREENING DIGITAL BREAST TOMOSYNTHESIS, BILATERAL CLINICAL INFORMATION: Screening. Asymptomatic. The lifetime risk of breast cancer based on the Tyrer-Cuzick Model is 8.2%. COMPARISON: Mammography: This study is compared with prior exams dating back to 2018. TECHNIQUE: Digital breast tomosynthesis is performed in both the craniocaudal and mediolateral oblique views along with computer-aided detection (CAD). Synthesized 2D images are generated from the tomosynthesis. FINDINGS: There are scattered areas of fibroglandular density (ACR BI-RADS breast composition Category b). In the retroareolar portion of the upper inner quadrant of the left breast, there is a focal asymmetry which warrants additional mammographic and targeted sonographic imaging. This finding may represent intramammary kianna tissue versus cyst formation. In the right breast, there are no significant masses, abnormal calcifications, or other abnormalities. MM/MM tomosynthesis screening BI IMPRESSION: Focal asymmetry of the left breast warrants additional mammographic and targeted sonographic evaluation. No mammographic signs of malignancy right breast. ASSESSMENT: BI-RADS BI-RADS 0 - Incomplete: Needs additional Imaging. RECOMMENDATION: 1. Additional mammographic views of the right breast 2. Targeted ultrasound if warranted after review of the additional views. 3. Radiology department staff will contact the patient for additional imaging. Additional Imaging required This examination should not preclude the clinical evaluation of a suspicious palpable abnormality. This patient's information was entered into a reminder system with a target due date for their next mammogram.
== END 2023-04-01 08:16 | disposition home or self-care (01) ==
LOC: HO.MAMMO 08:15
PROVIDERS: PCP Internal Medicine; Visit Provider Internal Medicine
DX: Z12.31 Encounter for screening mammogram for malignant neoplasm of breast (principal)
CPT/HCPCS: 77063; 77067

== ENCOUNTER → 2023-04-01 08:30 | Outpatient (BNV) | payer OTHER, SELFPAY | PROVIDERS: PCP Internal Medicine; Visit Provider Radiology Diagnostic Radiology | DX: Z12.31 Encounter for screening mammogram for malignant neoplasm of breast (principal) | CPT/HCPCS: 77063; 77067 ==

== ENCOUNTER 2023-04-15 07:44 | Outpatient (AMB) | payer OTHER, SELFPAY ==
--- NOTE | 2023-04-15 07:47 | A.OFFVIS_ITS ---
Intake Vital Signs 04/15/23 07:49 Height 5 ft 2 in Weight 221 lb BMI 40.4 BP 122/80 Intake Visit Reasons: Annual Intake Note: no concerns The patient agreed to use of a medical technologist microbiology during this encounter. Scribed for CRAIG Lou by Maryanne Fernandez medical technologist microbiology, on 04/15/2023 at 8:06 am EST. Director Of Conservation Required: No Information Interpreted: non-clinical & clinical Stiff Neck Loader: Stiff Neck Loader Present (Nneka Weber RUBÉN) Accompanied by: Self / Same As Patient Allergies Seasonal Allergies Allergy (Mild, Verified 04/15/23 07:52) runny nose, watery eyes Post menopausal: Yes HPI HPI Comments History of Present Illness Details She is a postmenopausal woman presenting for annual exam. Doing well with no hay sorter concerns. Patient admits she tries to eat a healthy diet including Calcium and Vitamin D. She stays active with exercise. Currently not sexually active. Denies vaginal itching and irritation. STD screening offered; she declines. Denies family hx of breast, colon and ovarian cancer. Last pap smear 10/04/19; neg, neg Last mammogram 04/01/23 UTD on colonoscopy. [facility] Medical History Arthralgia Diabetes mellitus with hyperglycemia, without long-term current use of insulin Dyslipidemia (high LDL; low HDL) Environmental and seasonal allergies Essential hypertension Fibromyalgia Irritable bowel syndrome with diarrhea Mild intermittent asthma Mixed dyslipidemia Morbid obesity due to excess calories Postmenopause Refusal of blood product Tendinitis of finger of right hand Vitamin D deficiency Surgical History Hx of section Hx of colonoscopy Hx of umbilical hernia repair Family History Father No problems noted. Mother No problems noted. 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 Sexual orientation: Straight/Heterosexual Gender identity: Female Cognitive needs: No Hearing needs: No Vision needs: Yes Female Reproductive History Menstrual Age of Menarche: 10 Menopause type: natural Total pregnancies: 2 Full term: 1 Number of Living Children: 1 Date of last pap smear: 10/04/19 Date of Mammogram: 04/01/23 Physical Exam Vital Signs: Last Vital Signs BP 122/80 04/15/23 07:49 BMI result Body Mass Index 40.4 Const General: cooperative, healthy appearing, no acute distress, well developed and alert Orientation/consciousness: patient oriented x3 HEENT Head: Yes normal to inspection Eyes General: appearance normal, both eyes and all related structures Neck Neck: Yes normal visual inspection Thyroid: Thyroid normal Chest Chest palpation & inspection: normal inspection of the chest Breast/axilla inspection: normal inspection of the breasts (no puckering, dimpling, peau de orange, retraction, discharge, masses) Breast/axilla palpation: normal palpation of the breasts Resp Effort & Inspection: normal respiratory effort GI Inspection: Yes normal to inspection Palpation (GI): Soft to palpation (to palpation) Rectal Exam - Female: deferred General: Yes bladder normal to inspection External Female Exam: normal external appearance and normal appearance of the urethra Speculum Exam - Vagina: normal appearance of the vagina, normal palpation and vagina atrophic Speculum Exam - Cervix: normal appearance of the cervix and normal palpation Bimanual exam- vagina & uterus: normal palpation and normal palpation Bimanual Exam- Adnexa, other: normal adnexae and no masses Skin General skin exam: no rashes or lesions noted Neuro General: patient oriented x3 Cognition (Neuro): normal cognition Extrem General: Yes normal to inspection Psych Attitude: cooperative Thought process: Normal thought process present Assessment & Plan Assessment & Plan (1) Encounter for well woman exam: Code(s): Z01.419 - Encounter for gynecological examination (general) (routine) without abnormal findings Plan: Discussed: Current recommendations for pap smears per ASCCP guidelines. Breast awareness and periodic self breast exams. Encouraged yearly mammograms. Maintaining a healthy lifestyle including a well balanced diet including Calcium and Vitamin D and routine exercise. Contact office with any PMB. All of her questions and concerns were addressed to the best of my ability RTO in 1 year for AG. Coding Level of Care Code Est Pt Prev Care 40-64y(53979) Diagnoses Encounter for well woman exam Z01.419
[2023-04-15 07:49] VITALS: BP 122/80; BMI 40.4
== END 2023-04-15 08:13 | disposition home or self-care (01) ==
LOC: HO.HWS 07:44
PROVIDERS: PCP Internal Medicine; Visit Provider Advanced Practice Midwife
DX: Z01.419 Encounter for gynecological examination (general) (routine) without abnormal findings (principal)
CPT/HCPCS: 99396

== ENCOUNTER → 2023-04-15 07:44 | Outpatient (BNVA) | payer OTHER, SELFPAY | PROVIDERS: PCP Internal Medicine; Visit Provider Advanced Practice Midwife ==

== ENCOUNTER 2023-04-21 15:36 | Outpatient (AMB) | payer OTHER, SELFPAY ==
--- NOTE | 2023-04-21 15:59 | A.OFFPC_ITS ---
Vital Signs 04/21/23 16:22 Height 5 ft 2 in Weight 223 lb 4 oz BMI 40.8 BP 130/78 Blood Pressure Location Lt brachial Position Sitting Pulse 109 H Pulse Source Pulse Oximeter Pulse Oximetry (%) 96 Oxygen Delivery Method Room Air Intake Visit Reasons: Annual PE/ last appt per AE Intake Note: Pt is here today for Annual PE Allergies Seasonal Allergies Allergy (Mild, Verified 04/21/23 16:34) runny nose, watery eyes Medication List - Last Reconciled 04/21/23 by Jayshree Marcos MD albuterol sulfate 90 mcg/actuation 2 puffs PO QID PRN albuterol sulfate 2.5 mg (3 mL) inhalation QID PRN blood sugar diagnostic (FreeStyle Lite Strips) check fasting blood sugar twice a day before a meal blood sugar diagnostic (FreeStyle Lite Strips) Check fasting blood sugar twice a day before meals blood-glucose meter (FreeStyle Lite Meter kit) Fasting glucose twice a day before meals and keep a record cyclobenzaprine 10 mg PO BEDTIME enalapril maleate 10 mg PO DAILY lidocaine 5% 2 patches topical DAILY loratadine 10 mg PO DAILY meclizine 25 mg PO BID PRN 7 days meloxicam 15 mg PO DAILY metformin 1,000 mg PO BIDWMEAL simvastatin 40 mg PO BEDTIME Tobacco use date assessed: 04/21/23 Dental Screening Dental Screen Date: 04/21/23 Did you have a dental visit in the last 12 months?: No Did you have a dental problem in the last 6 months where you did not have access to dental care?: No Was dental information given to patient?: No HPI Annual PE/ last appt per AE HPI Details 52-year-old lady with diabetes mellitus dyslipidemia, hypertension and obesity here today for her physical exam. She has not been very compliant with her diet and has just started exercising in the pool several days ago. He also has fibromyalgia for which he takes meloxicam as needed and uses lidocaine patches when pain gets severe. Has mild intermittent asthma which is controlled, rarely needs to use her albuterol inhaler. She had a mammogram 04/01/2023 which showed on the upper inner quadrant of the left breast, there is a focal asymmetry which warrants additional mammographic and targeted sonographic imaging, may represent intramammary kianna tissue versus cyst formation. Patient will be [facility] by [facility] to get additional views. [facility] Medical History Arthralgia Diabetes mellitus with hyperglycemia, without long-term current use of insulin Dyslipidemia (high LDL; low HDL) Environmental and seasonal allergies Essential hypertension Fibromyalgia Irritable bowel syndrome with diarrhea Mild intermittent asthma Mixed dyslipidemia Morbid obesity due to excess calories Postmenopause Refusal of blood product Tendinitis of finger of right hand Vitamin D deficiency Surgical History Hx of section Hx of colonoscopy Hx of umbilical hernia repair Family History Father No problems noted. Mother No problems noted. 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 1. Little interest or pleasure in doing things: not at all 2. Feeling down, depressed, or hopeless: not at all 3. Trouble falling or staying asleep, or sleeping too much: not at all 4. Feeling tired or having little energy: not at all 5. Poor appetite or overeating: not at all 6. Feeling bad about yourself - or that you are a failure or have let yourself or your family down: not at all 7. Trouble concentrating on things, such as reading the newspaper or watching television: not at all 8. Moving or speaking so slowly that other people could have noticed. Or the opposite - being so fidgety or restless that you have been moving around a lot more than usual: not at all 9. Thoughts that you would be better off or of hurting yourself in some way: not at all Total score: 0 Depression Screening Interpretation: Negative [id number] - PHQ-9 Billing: Yes Source: Developed by Drs. Paul Ramirez, Luis Garcia and colleagues, with an educational billy from [employer]. Thrive Questionnaire Date Thrive assessed: 12/21/22 AUDIT C Alcohol Use Questionnaire (AUDIT-C) 1. How often do you have a drink containing alcohol?: Monthly or less 2. How many drinks containing alcohol do you have on a typical day when you are drinking?: 1 or 2 3. How often do you have six or more drinks on one occasion?: Never Total Score: 1 Score Reviewed/Action Taken: Yes KAMRAN-7 AMB Questionnaire KAMRAN-7 Date KAMRAN - 7 assessed: 12/21/22 Source: Developed by Drs. Paul Ramirez, Luis Garcia and colleagues, with an educational billy from [employer]. Review of Systems Const All systems reviewed & are unremarkable except as noted in HPI and below Reports fatigue, Denies fever(s), Denies frequent falls, Denies headache(s), Reports lethargy and Denies weakness Eyes Reports blurry vision and Reports itchy eyes (Right ) ENT Reports dizziness (Occasional), Reports dry mouth, Denies headache(s), Denies nasal congestion and Denies sore throat Card Denies chest pain, Denies syncope, Reports rapid heart rate, Denies irregular heart rhythm, Denies leg edema, Denies radiating jaw, neck or arm pain and Denies dyspnea Resp Denies chest congestion, Denies cough, Denies dyspnea and Denies wheezing GI Denies abdominal pain, Denies melena, Denies bloating, Denies hematochezia, Denies change in bowel habits, Denies heartburn, Denies nausea and Denies vomiting Denies hematuria, Denies urinary frequency, Denies difficulty voiding, Denies nipple discharge, Denies dysuria, Denies urinary incontinence and Reports other (Urinary frequency) Musc Denies abnormal gait, Reports arthralgias (Occasional in hips, knees), Reports stiffness and Denies tingling Skin/Breast Denies breast skin changes, Denies breast pain, Denies breast mass, Denies nippl e discharge and Denies rash Neuro Denies abnormal gait, Reports dizziness (Occasional), Denies syncope, Denies frequent falls, Denies headache(s), Denies Sensory deficit (Neuro), Denies tingling, Denies paresthesias and Denies weakness Psych Reports no additional complaints Endo Reports fatigue, Reports polydipsia and Reports polyuria Kamran/Lymph Reports no additional complaints Aller/Immun Reports itchy eyes (Right ) and Denies wheezing Physical exam (Primary Care) Vital Signs: Last Vital Signs Pulse 109 H 04/21/23 16:22 BP 130/78 04/21/23 16:22 Pulse Ox 96 04/21/23 16:22 Oxygen Delivery Method Room Air 04/21/23 16:22 BMI result Body Mass Index 40.8 BMI Assessment/Plan discussion: High BMI High, discussed plan: lifestyle, weight reduction, dietary and physical activity Tobacco/Smoking Status: Tobacco use Status Tobacco use date assessed 04/21/23 04/21/23 16:24 Patient Tobacco Use Status Never used Tobacco 04/21/23 16:00 e-Cigarette/Vaping Use Never Used 04/21/23 16:00 PHQ-9: PHQ-9 Score PHQ-9: Total score 0 04/22/23 08:15 Depression Screening Interpretation: Negative Thrive Assessment: Date of Thrive Assessment Date Thrive assessed 12/21/22 04/21/23 16:00 Advance Care Planning discussion: On file, no changes Date of discussion: 04/21/23 Who was present: Patient Forms completed: Health Care Proxy (Already on file) Time spent: 16-45 minutes Actual minutes spent: 16 Const General: cooperative, comfortable, no acute distress, alert and Physically active Nutritional Appearance: obese morbidly obese Orientation/consciousness: patient oriented x3 Limitations: no limitations HENMT Head: Yes normocephalic and Yes atraumatic Ears: hearing grossly normal bilaterally, external ears normal, TM's normal bilaterally and EAC's normal General nose exam: Normal external nose present and No nasal discharge present Face and sinus: Yes sinuses nontender and Yes face symmetric Mouth: Normal oral and palatal mucosa present, tongue normal, oropharynx normal and moist mucous membranes abnormal Eyes General: appearance normal, both eyes and all related structures Alignment and Position: alignment normal Eyelids: Yes eyelids normal Conjunctivae: conjunctivae normal Sclerae: sclerae normal Pupils: Equal, round and reactive pupils present EOM: EOMs intact bilaterally Neck Neck: Yes full ROM, Yes no lymphadenopathy and Yes supple Thyroid: Thyroid normal Chest Chest palpation & inspection: normal inspection of the chest and normal palpation of entire chest wall Breast/axilla inspection: normal inspection of the breasts Breast/axilla palpation: normal palpation of the breasts and normal palpation of the axillae Resp Effort & Inspection: normal respiratory effort and able to speak in complete se ntences Auscultation: clear to auscultation bilaterally Cardio Palpation: normal PMI Rate: regular rate Rhythm: regular rhythm Heart sounds: S1 normal heart sound present and S2 normal heart sound present GI Inspection: Yes obesity Palpation (GI): Soft to palpation, nontender, no guarding and no masses Auscultation: normal bowel sounds General: Yes no CVA tenderness and Yes deferred Back/Spine/Pelvis Back: no CVA tenderness and No back tenderness Skin General skin exam: no rashes or lesions noted Neuro General: patient oriented x3, gait normal, tone normal, moves all extremities, Normal light touch and pain sensation, no focal motor deficits, CN's II-XI intact bilaterally and normal sensation to monofilament Cranial nerves: Yes Equal, round and reactive pupils present Cognition (Neuro): normal cognition Gait exam (Neuro): Normal gait present Sensory Exam: No Sensory deficit (Neuro) Extrem General: Yes full ROM, Yes no joint enlargement, Yes no clubbing, cyanosis or edema, Yes no pedal edema, Yes no calf tenderness and Yes normal gait Psych Appearance: grossly normal Mental Status: mental status grossly normal Speech and movement: Normal speech and movement present Affect: normal affect Attitude: cooperative Thought process: Normal thought process present Thought content: Normal thought content present Results AMB Hemoglobin A1c AMB Hemoglobin A1c 10.2 % Last Edit by Bisi Milligan CMA on 04/21/23 16:47 Results Reviewed Results Reviewed: Laboratory Last Values Hgb A1c (Clinic) 10.2 % (4.0-6.0) H 04/21/23 16:40 Assessment and Plan Assessment & Plan (1) Diabetes mellitus with hyperglycemia, without long-term current use of insulin: Comment: NIDDM Code(s): E11.65 - Type 2 diabetes mellitus with hyperglycemia Qualifiers: Diabetes mellitus type: type 2 Qualified Code(s): E11.65 - Type 2 diabetes mellitus with hyperglycemia Plan: Hemoglobin A1c today is 10.6%. Continue with metformin, 1000 mg twice a day, added Trulicity 0.75 mg injection weekly, instructions given to patient on how to administer medication, started on Jardiance 10 mg per tablet to take once a day in a.m. with water at least an hour before breakfast. Do not take together with other medications. Referred to consumer educator to see if she can be started on freestyle Frank, does not want to be started on insulin at present time. Stressed importance of adhering to recommended diet and getting regular exercise. Has just started exercising her pool. She made an appointment see Dr. Thomson but appointment was given not until next year. Sees Dr. Ponce for her foot exam. She is up-to-date with her pneumonia vaccination and gets yearly flu shots, up-to-date with her Tdap, due for her COVID booster (2) Mixed dyslipidemia: Code(s): E78.2 - Mixed hyperlipidemia Plan: Fasting lipid panel ordered, currently on simvastatin. (3) Vitamin D deficiency: Code(s): E55.9 - Vitamin D deficiency, unspecified Plan: Will check vitamin-D level (4) Annual visit for general adult medical examination with abnormal findings: Code(s): Z00.01 - Encounter for general adult medical examination with abnormal findings Plan Will check appropriate labs. Recommended dental visit every 6 months and regular eye exams, made already an appointment to see Dr. Thomson but appointment is not until next year. . Take adequate calcium in diet and vitamin-D 3 at 2000 IU per cap once a day, in addition to weight-bearing exercises to help maintain good muscle tone and weight control. Instructed to do self-breast exam, and up-to-date with her yearly mammogram, needs additional views. Up-to-date with her pneumonia vaccinations, Tdap, gets yearly flu shots, reminded to get her COVID booster and shingles vaccination. Up-to-date with her screening colonoscopy. Orders: Orders Basic Metabolic Panel Fasting 04/21/23 E11.65 - Type 2 diabetes mellitus with hyperglycemia, E55.9 - Vitamin D deficiency, unspecified, E78.2 - Mixed hyperlipidemia, Z00.01 - Encounter for general adult medical examination with abnormal findings, Z78.0 - Asymptomatic menopausal state Lipid Panel 04/21/23 E11.65 - Type 2 diabetes mellitus with hyperglycemia, E55.9 - Vitamin D deficiency, unspecified, E78.2 - Mixed hyperlipidemia, Z00.01 - Encounter for general adult medical examination with abnormal findings, Z78.0 - Asymptomatic menopausal state Vitamin D 25-OH Total 04/21/23 E11.65 - Type 2 diabetes mellitus with hyperglycemia, E55.9 - Vitamin D deficiency, unspecified, E78.2 - Mixed hyperlipidemia, Z00.01 - Encounter for general adult medical examination with abnormal findings, Z78.0 - Asymptomatic menopausal state Microalbumin, Random (w Creat) 04/21/23 E11.65 - Type 2 diabetes mellitus with hyperglycemia, E55.9 - Vitamin D deficiency, unspecified, E78.2 - Mixed hyperlipidemia, Z00.01 - Encounter for general adult medical examination with abnormal findings, Z78.0 - Asymptomatic menopausal state AMB Hemoglobin A1c 04/21/23 Z13.9 - Encounter for screening, unspecified Medications: New dulaglutide (Trulicity) 0.75 mg (0.5 mL) subcut QWEEK 2 mL 5RF E11.65 - Type 2 diabetes mellitus with hyperglycemia empagliflozin (Jardiance) Take in a.m. 1 hour before breakfast with a glass of water. Do not mix with other medications 10 mg PO QAM 30 tabs 4RF ketotifen fumarate 0.025%(0.035%) (Allergy Eye (ketotifen)) 1 drp ophthalmic (eye) Q12H PRN 5 mL 0RF allergy symptoms Changed From meloxicam 15 mg PO DAILY 14 tabs 0RF To meloxicam 15 mg PO DAILY PRN 30 tabs 1RF pain From metformin 1,000 mg PO BIDWMEAL 60 tabs 5RF E11.65 - Type 2 diabetes mellitus with hyperglycemia To metformin 1,000 mg PO BIDWMEAL 3 months 180 tabs 3RF E11.65 - Type 2 diabetes mellitus with hyperglycemia Refilled enalapril maleate 10 mg PO DAILY 90 tabs 1RF Discontinued simvastatin Discontinued Reason: Doctor's Order 40 mg PO BEDTIME 90 tabs 1RF Coding Level of Care Code Est Pt Prev Care 40-64y(95792) Diagnoses Diabetes mellitus with hyperglycemia, without long-term current use of insulin E11.65 Diabetes mellitus type: type 2 Mixed dyslipidemia E78.2 Vitamin D deficiency E55.9 Annual visit for general adult medical examination with abnormal findings Z00.01 Additional Codes Vital Signs *Quality* - Advance Care Planning discussion: On file, no changes ([id number]) Vital Signs *Quality* - Time spent: 16-45 minutes ([id number])
[2023-04-21 16:22] VITALS: BP 130/78; PULSE 109; O2SAT 96; BMI 40.8
== END 2023-04-21 17:07 | disposition home or self-care (01) ==
PROVIDERS: Visit Provider Internal Medicine
DX: Z00.00 Encounter for general adult medical examination without abnormal findings (principal); E11.65 Type 2 diabetes mellitus with hyperglycemia; E78.2 Mixed hyperlipidemia; E55.9 Vitamin D deficiency, unspecified
CPT/HCPCS: 83036; 99396; 99497

== ENCOUNTER 2023-05-18 10:24 | Outpatient (REF) | payer OTHER, SELFPAY ==
--- NOTE | ~2023-05-18 | US_ITS ---
EXAMINATION: MM DIAGNOSTIC DIGITAL BREAST TOMOSYNTHESIS, LEFT US BREAST LIMITED, LEFT MAMMOGRAPHY: CLINICAL INFORMATION: Evaluate focal asymmetry/mass slightly upper inner quadrant left breast anterior one third seen on screening exam. COMPARISON: Mammography: 04/01/2023, 04/05/2022, 02/28/2021, and dating back to 2017. TECHNIQUE: Digital breast tomosynthesis is performed in left full-field 3-D digital ML view, as well as 3-D spot compression left MLO and cc views along with computer-aided detection (CAD). Synthesized 2D images are generated from the tomosynthesis. FINDINGS: There are scattered areas of fibroglandular density (ACR BI-RADS breast composition Category b). There is a isodense circumscribed mass in the anterior one third of the left breast, approximate 10:00 axis. This measures approximately 9 mm in diameter. This will be evaluated by ultrasound. No additional abnormality evident in the left breast. Results were provided to the patient at time of visit by the technologist. ULTRASOUND: CLINICAL INFORMATION: Evaluate focal asymmetry/mass 10:00 axis left breast anterior one third. COMPARISON: Mammography dated same day. No prior ultrasound. TECHNIQUE: Targeted sonographic evaluation was performed of the left breast 10:00 axis using a high frequency linear transducer. Selected archived documentation. FINDINGS: LEFT BREAST: There is a simple oval cyst in the left breast 10:00 axis, 5 cm from the nipple, measuring 9 x 10 x 5 mm. This correlates well with the mammographic focus of concern. This finding is benign. No further follow-up recommended. No additional abnormalities were noted. US/US breast LT limited mamm only IMPRESSION: Benign cyst left breast 10:00 axis. No further follow-up recommended. Recommend the patient return to routine annual screening. OVERALL ASSESSMENT: Mammography: BI-RADS 2 - Benign Findings Ultrasound: BI-RADS 2 - Benign Findings RECOMMENDATION: 1 year F/U This patient's information was entered into a reminder system with a target due date for their next mammogram.
== END 2023-05-18 10:25 | disposition home or self-care (01) ==
LOC: HO.MAMMO 10:24
PROVIDERS: PCP Internal Medicine; Visit Provider Internal Medicine
DX: N64.89 Other specified disorders of breast (principal)
CPT/HCPCS: 76642; 77061; 77065

== ENCOUNTER → 2023-05-18 11:00 | Outpatient (BNV) | payer OTHER, SELFPAY | PROVIDERS: PCP Internal Medicine; Visit Provider Radiology Diagnostic Radiology | DX: N63.25 Unspecified lump in the left breast, overlapping quadrants (principal) | CPT/HCPCS: 76642; 77061; 77065 ==

== ENCOUNTER 2023-06-04 09:25 | Outpatient (REF) | payer OTHER, SELFPAY ==
[2023-06-04 12:13] LABS: Anion Gap 14 (12-20); Blood Urea Nitrogen 10 mg/dL (9-16); Calcium 9.1 mg/dL (8.4-10.2); Carbon Dioxide 27 mmol/L (22-29); Chloride 104 mmol/L (96-108); Cholesterol 106 mg/dL (<200); Estimated Glomerular Filt Rate > 60; Glucose Fasting 130 mg/dL (60-99); HDL Cholesterol 39 mg/dL (>40); LDL Cholesterol Calculated 45 mg/dL (<100); Potassium 4.8 mmol/L (3.3-5.1); Sodium 140 mmol/L (135-145); Triglycerides 112 mg/dL (<150)
[2023-06-04 12:17] LABS: Vitamin D 25-OH Total 34.9 ng/mL (>30)
[2023-06-04 12:19] LABS: Microalbum/Creatinine Ratio Ur 6.4 ug/mg cr (<30)
== END 2023-06-04 09:26 | disposition home or self-care (01) ==
LOC: HO.HMGCLDS 09:25
PROVIDERS: PCP Internal Medicine; Visit Provider Internal Medicine
DX: Z00.01 Encounter for general adult medical examination with abnormal findings (principal); E78.2 Mixed hyperlipidemia; E55.9 Vitamin D deficiency, unspecified; E11.65 Type 2 diabetes mellitus with hyperglycemia; Z78.0 Asymptomatic menopausal state
CPT/HCPCS: 36415; 80048; 80061; 82043; 82306; 82570

== ENCOUNTER 2023-06-10 10:05 | Outpatient (AMB) | payer OTHER, SELFPAY ==
[2023-06-10 10:10] VITALS: BP 130/78; PULSE 80; O2SAT 98; BMI 39.0
--- NOTE | 2023-06-10 10:10 | A.OFFPC_ITS ---
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 Accompanied by: Self / Same As Patient Allergies Seasonal Allergies Allergy (Mild, Verified 11/20/23 17:21) runny nose, watery eyes Medication List - Last Reconciled 06/10/23 by Jayshree Marcos MD albuterol sulfate 90 mcg/actuation 2 puffs PO QID PRN albuterol sulfate 2.5 mg (3 mL) inhalation QID PRN blood sugar diagnostic (FreeStyle Lite Strips) check fasting blood sugar twice a day before a meal blood sugar diagnostic (FreeStyle Lite Strips) Check fasting blood sugar twice a day before meals blood-glucose meter (FreeStyle Lite Meter kit) Fasting glucose twice a day before meals and keep a record dulaglutide (Trulicity) 0.75 mg (0.5 mL) subcut QWEEK empagliflozin (Jardiance) 10 mg PO QAM enalapril maleate 10 mg PO DAILY loratadine 10 mg PO DAILY metformin 1,000 mg PO BIDWMEAL 3 months rosuvastatin 10 mg PO DAILY Tobacco use date assessed: 04/21/23 Dental Screening Dental Screen Date: 06/10/23 Did you have a dental visit in the last 12 months?: Yes Did you have a dental problem in the last 6 months where you did not have access to dental care?: No Was dental information given to patient?: Patient has dentist HPI 6 week follow up HPI Details 53-year-old lady here today for follow-u p regarding her diabetes mellitus after starting Trulicity and Jardiance in addition to her metformin. Patient states that her blood sugar has been running below 150 mg/dL most of the time, fasting glucose on last blood draw was 130 mg/dL. Recent fasting lipids also showed results within normal Complains of recurrent pain across her lower back is which has been present now for the last several days, no history of any trauma or exertion has been exercising her pool. No accompanying numbness tingling or weakness in lower extremities PFSH Medical History Toe injury Mixed dyslipidemia Vitamin D deficiency Irritable bowel syndrome with diarrhea Environmental and seasonal allergies Mild intermittent asthma Arthralgia Refusal of blood product Fibromyalgia Morbid obesity due to excess calories Postmenopause Tendinitis of finger of right hand Essential hypertension Dyslipidemia (high LDL; low HDL) Diabetes mellitus with hyperglycemia, without long-term current use of insulin Surgical History Hx of colonoscopy Hx of umbilical hernia repair Hx of section Family History Father No problems noted. Mother No problems noted. 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 Paul Ramirez, Yue Roman, Luis Perry and colleagues, with an educational billy from [employer]. Review of Systems Const All systems reviewed & are unremarkable except as noted in HPI and below Denies fever(s), Denies frequent falls, Denies headache(s), Reports lethargy and Denies weakness Eyes Reports blurry vision ENT Reports dry mouth, Denies headache(s), Denies nasal congestion and Denies sore throat Card Denies chest pain, Denies syncope, Reports rapid heart rate, Denies irregular heart rhythm, Denies leg edema, Denies radiating jaw, neck or arm pain and Denies dyspnea Resp Denies chest congestion, Denies cough, Denies dyspnea and Denies wheezing GI Denies abdominal pain, Denies melena, Denies bloating, Denies hematochezia, Denies change in bowel habits, Denies heartburn, Denies nausea and Denies vomiting Denies hematuria, Denies urinary frequency, Denies difficulty voiding, Denies dysuria and Denies urinary incontinence Musc Denies abnormal gait, Reports arthralgias (Occasional in hips, knees), Reports stiffness and Denies tingling Neuro Denies abnormal gait, Denies syncope, Denies frequent falls, Denies headache(s), Denies Sensory deficit (Neuro), Denies tingling, Denies paresthesias and Denies weakness Psych Reports no additional complaints Endo Reports no additional complaints Kamran/Lymph Reports no additional complaints Aller/Immun Denies wheezing Physical exam (Primary Care) Vital Signs: Last Vital Signs Pulse 80 06/10/23 10:10 BP 130/78 06/10/23 10:10 Pulse Ox 98 06/10/23 10:10 BMI result Body Mass Index 39.0 Tobacco/Smoking Status: Tobacco use Status Tobacco use date assessed 04/21/23 06/10/23 10:11 Patient Tobacco Use Status Never used Tobacco 06/10/23 10:11 e-Cigarette/Vaping Use Never Used 06/10/23 10:11 Thrive Assessment: Date of Thrive Assessment Date Thrive assessed 12/21/22 06/10/23 10:11 Const General: cooperative, comfortable, no acute distress and alert Nutritional Appearance: obese morbidly obese Orientation/consciousness: patient oriented x3 HENMT Head: Yes normocephalic and Yes atraumatic Ears: external ears normal General nose exam: Normal external nose present and No nasal discharge present Face and sinus: Yes sinuses nontender and Yes face symmetric Mouth: Normal oral and palatal mucosa present, tongue normal, oropharynx normal and moist mucous membranes abnormal Eyes General: appearance normal, both eyes and all related structures Neck Neck: Yes full ROM, Yes no lymphadenopathy and Yes supple Thyroid: Thyroid normal Resp Effort & Inspection: normal respiratory effort and able to speak in complete sentences Auscultation: clear to auscultation bilaterally Cardio Palpation: normal PMI Rate: regular rate Rhythm: regular rhythm Heart sounds: S1 normal heart sound present and S2 normal heart sound present GI Inspection: Yes obesity Palpation (GI): Soft to palpation, nontender, no guarding and no masses Auscultation: normal bowel sounds General: Yes deferred Back/Spine/Pelvis Thoracic/Lumbar Spine: straight leg raise negative bilaterally and paraspinal muscle tenderness bilaterally Skin General skin exam: no rashes or lesions noted Neuro General: patient oriented x3, gait normal, tone normal, moves all extremities, Normal light touch and pain sensation, no focal motor deficits, CN's II-XI intact bilaterally and normal sensation to monofilament Cognition (Neuro): normal cognition Gait exam (Neuro): Normal gait present Sensory Exam: No Sensory deficit (Neuro) Extrem General: Yes full ROM, Yes no joint enlargement, Yes no clubbing, cyanosis or edema, Yes no pedal edema, Yes no calf tenderness and Yes normal gait Results Reviewed Results Reviewed: Name: Jessica Lo Age/Sex: 52/F : 1970 Unit#: [id number] Attend Dr: Jayshree Marcos MD Re06/04/23 Status: DEP REF Location: [facility] Disch: SPEC : [id number] DAVIS: 06/04/23 STATUS: COMP REQ : [id number] RECD: 06/04/23-[address]: Jayshree Marcos MD COMP: 06/04/23 ENTERED: 06/04/[address]: ORDERED: Met Prof Fast, Lipid Panel, Vitamin D 25-OH Test Result Flag Reference Sodium 140 135-145 mmol/L Potassium 4.8 3.3-5.1 mmol/L CL 104 96-108 mmol/L CO2 27 22-29 mmol/L Gap 14 12-20 BUN 10 9-16 mg/dL Creat 0.74 0.5-1.4 mg/dL EGFR > 60 NOTE: For -Mexican individuals, multiply the result by 1.210. Chronic Kidney Disease: Estimated GFR < 60 mL/min/1.73m2 Severe Kidney Disease: Estimated GFR < 15 mL/min/1.73m2 FBS 130 H 60-99 mg/dL A fasting glucose of 126 mg/dl or greater on more than one occasion is considered diagnostic of diabetes. CA 9.1 8.4-10.2 mg/dL Triglyceride 112 <150 mg/dL Desirable Triglyceride: less than 150 mg/dL Borderline High Triglyceride 150-199 mg/dL High Triglyceride: 200-499 mg/dL Very High Triglyceride: greater than or equal to 5OO mg/dL Cholesterol 106 <200 mg/dL Desirable Cholesterol: less than 200 mg/dL Borderline High Cholesterol: 200-239 mg/dL High Cholesterol: greater than 239 mg/dL LDL Calculated 45 <100 mg/dL Desirable LDL: less than 100 mg/dL Near Optimal/Above Optimal LDL: 110-129 mg/dL Borderline High LDL: 130-159 mg/dL High LDL: 160-189 mg/dL Very High LDL: greater than or equal to 190 mg/dL HDL 39 L >40 mg/dL Desirable HDL: greater than 40 mg/dL Note: This HDL assay may give artificially low results in patients with liver disease. Vit D 25-OH Tot 34.9 >30 ng/mL Health Based Reference Values* < 20 ng/mL Deficient 20-30 ng/mL Insufficient > 30 ng/mL Sufficient Laboratory Tests 06/04/23 09:54 Urine Creatinine 109.30 Urine Microalbumin 7.0 Microalb/Creat Ratio 6.4 Assessment and Plan Assessment & Plan (1) Diabetes mellitus with hyperglycemia, without long-term current use of insulin: Comment: NIDDM Code(s): E11.65 - Type 2 diabetes mellitus with hyperglycemia Qualifiers: Diabetes mellitus type: type 2 Qualified Code(s): E11.65 - Type 2 diabetes mellitus with hyperglycemia Plan: Improving glucose control noted, continue with Trulicity, Jardiance and metformin. Repeat another hemoglobin A1c and 3 month (2) Mixed dyslipidemia: Code(s): E78.2 - Mixed hyperlipidemia Plan: Reviewed recent fasting lipid results with which was not normal limits . continu e rosuvastatin 10 mg daily (3) Low back pain: Code(s): M54.50 - Low back pain, unspecified Qualifiers: Back pain laterality: right Chronicity: chronic Sciatica presence: without sciatica Qualified Code(s): M54.50 - Low back pain, unspecified; G89.29 - Other chronic pain Plan: Continue with meloxicam to take as needed and prescription sent for tizanidine 4 mg to be taken at bedtime as needed for painful muscle spasm Orders: Orders Aspartate Amino Transferase 08/26/23 E11.65 - Type 2 diabetes mellitus with hyperglycemia, Z78.0 - Asymptomatic menopausal state, E55.9 - Vitamin D deficiency, unspecified, E78.2 - Mixed hyperlipidemia Microalbumin, Random (w Creat) 12/01/23 E11.65 - Type 2 diabetes mellitus with hyperglycemia, Z78.0 - Asymptomatic menopausal state, E55.9 - Vitamin D def iciency, unspecified, E78.2 - Mixed hyperlipidemia Hemoglobin A1c 08/26/23 E11.65 - Type 2 diabetes mellitus with hyperglycemia, Z78.0 - Asymptomatic menopausal state, E55.9 - Vitamin D deficiency, unspecified, E78.2 - Mixed hyperlipidemia Alanine Aminotransferase 08/26/23 E11.65 - Type 2 diabetes mellitus with hyperglycemia, Z78.0 - Asymptomatic menopausal state, E55.9 - Vitamin D deficiency, unspecified, E78.2 - Mixed hyperlipidemia Lipid Panel 08/26/23 E11.65 - Type 2 diabetes mellitus with hyperglycemia, Z78.0 - Asymptomatic menopausal state, E55.9 - Vitamin D deficiency, unspecified, E78.2 - Mixed hyperlipidemia Basic Metabolic Panel Fasting 08/26/23 E11.65 - Type 2 diabetes mellitus with hyperglycemia, Z78.0 - Asymptomatic menopausal state, E55.9 - Vitamin D deficiency, unspecified, E78.2 - Mixed hyperlipidemia Vitamin D 25-OH Total 08/26/23 E11.65 - Type 2 diabetes mellitus with hyperglycemia, Z78.0 - Asymptomatic menopausal state, E55.9 - Vitamin D deficiency, unspecified, E78.2 - Mixed hyperlipidemia Medications: New tizanidine 4 mg PO BEDTIME PRN 30 caps 0RF muscle spasticity Coding Level of Care Code Est Pt Level 4 (09567) Diagnoses Type 2 diabetes mellitus with hyperglycemia, without long-term current use of insulin Diabetes mellitus type: type 2 Mixed dyslipidemia E78.2 Chronic right-sided low back pain without sciatica M54.50; G89.29 Back pain laterality: right Chronicity: chronic Sciatica presence: without sciatica
== END 2023-06-10 11:02 | disposition home or self-care (01) ==
PROVIDERS: PCP Internal Medicine; Visit Provider Internal Medicine
DX: E11.65 Type 2 diabetes mellitus with hyperglycemia (principal); E78.2 Mixed hyperlipidemia; M54.50 Low back pain, unspecified; G89.29 Other chronic pain
CPT/HCPCS: 99214; 99499

== ENCOUNTER 2023-07-19 12:57 | Outpatient (AMB) | payer OTHER, SELFPAY ==
[2023-07-19 13:24] VITALS: BP 130/76; PULSE 96; TEMP 36.7; O2SAT 97; BMI 39.6
--- NOTE | 2023-07-19 13:24 | AM.OFFWIN_ITS ---
Intake Vital Signs 07/19/23 13:24 Height 5 ft 2 in Weight 216 lb 6 oz BMI 39.6 BP 130/76 Blood Pressure Location Lt brachial Position Sitting Pulse 96 Pulse Source Pulse Oximeter Temp 98.1 F Temp Source Temporal Artery Scan Pulse Oximetry (%) 97 Intake Visit Reasons: EST/back/rib pain(lobby) Intake Note: pt is here for c/o back and rib pain denies fall or injury Patient Tobacco Use Status: Never used Tobacco Allergies Seasonal Allergies Allergy (Mild, Verified 07/19/23 13:49) runny nose, watery eyes Medication List - Last Reconciled 07/19/23 by Vinicio Garza MD albuterol sulfate 90 mcg/actuation 2 puffs PO QID PRN albuterol sulfate 2.5 mg (3 mL) inhalation QID PRN blood sugar diagnostic (FreeStyle Lite Strips) check fasting blood sugar twice a day before a meal blood sugar diagnostic (FreeStyle Lite Strips) Check fasting blood sugar twice a day before meals blood-glucose meter (FreeStyle Lite Meter kit) Fasting glucose twice a day before meals and keep a record dulaglutide (Trulicity) 0.75 mg (0.5 mL) subcut QWEEK empagliflozin (Jardiance) 10 mg PO QAM enalapril maleate 10 mg PO DAILY loratadine 10 mg PO DAILY metformin 1,000 mg PO BIDWMEAL 3 months rosuvastatin 10 mg PO DAILY tizanidine 4 mg PO BEDTIME PRN Do you need a note to return to daycare/school/sports/work: Yes HPI EST/back/rib pain(lobby) HPI Details 52-year-old female presents to the [facility] for a sick visit. Patient woke up this morning with pain across the left side of the chest into the lower back and radiating down into her legs. Pain is worse on taking deep breaths. Unrelated to exercise or walking. No associated diaphoresis. No fevers or chills. [facility] Medical History (Updated 07/19/23 @ 13:51 by Vinicio Garza MD) Toe injury Mixed dyslipidemia Vitamin D deficiency Irritable bowel syndrome with diarrhea Environmental and seasonal allergies Mild intermittent asthma Arthralgia Refusal of blood product Fibromyalgia Morbid obesity due to excess calories Postmenopause Tendinitis of finger of right hand Essential hypertension Dyslipidemia (high LDL; low HDL) Diabetes mellitus with hyperglycemia, without long-term current use of insulin Surgical History Hx of colonoscopy Hx of umbilical hernia repair Hx of section Family History Father No problems noted. Mother No problems noted. 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 Sexual orientation: Straight/Heterosexual Gender identity: Female Cognitive needs: No Hearing needs: No Vision needs: Yes Female Reproductive History Menstrual Age of Menarche: 10 Physical Exam Vital Signs: Last Vital Signs Temp 98.1 F 07/19/23 13:24 Pulse 96 07/19/23 13:24 BP 130/76 07/19/23 13:24 Pulse Ox 97 07/19/23 13:24 BMI result Body Mass Index 39.6 Const General: cooperative and healthy appearing Nutritional Appearance: well nourished Orientation/consciousness: patient oriented x3 Limitations: no limitations HEENT Head: Yes normal to inspection Eyes General: appearance normal, both eyes and all related structures Neck Neck: Yes normal visual inspection Chest Chest palpation & inspection: normal palpation of entire chest wall Resp Effort & Inspection: normal respiratory effort Neuro General: patient oriented x3 Extrem Other: Reproducible tenderness over the left arm and in the clavicular and scapular area. area. Assessment & Plan Assessment & Plan (1) Upper back pain on left side: Code(s): M54.9 - Dorsalgia, unspecified Plan: Meloxicam and cyclobenzaprine called in. Patient was given a note for work. Stretching exercises suggested. Coding Level of Care Code Est Pt Level 3 (95694) Diagnoses Upper back pain on left side M54.9
== END 2023-07-19 14:03 | disposition home or self-care (01) ==
PROVIDERS: PCP Internal Medicine; Visit Provider Internal Medicine
DX: M54.9 Dorsalgia, unspecified (principal)
CPT/HCPCS: 99213

== ENCOUNTER 2023-08-05 09:56 | Outpatient (AMB) | payer OTHER, SELFPAY ==
[2023-08-05 10:47] VITALS: BP 130/72; PULSE 120; TEMP 36.6; O2SAT 98; BMI 38.8
--- NOTE | 2023-08-05 10:47 | MHC.OFFWIV ---
Intake Vital Signs 08/05/23 10:47 Height 5 ft 2 in Weight 212 lb BMI 38.8 BP 130/72 Blood Pressure Location Rt brachial Position Sitting Pulse 120 H Pulse Source Pulse Oximeter Temp 97.8 F Temp Source Temporal Artery Scan Pulse Oximetry (%) 98 Intake Visit Reasons: EST/sore throat(lobby masked) Intake Note: pt is here for c/o sore throat, body ache Patient Tobacco Use Status: Never used Tobacco Allergies Seasonal Allergies Allergy (Mild, Verified 08/05/23 10:49) runny nose, watery eyes Do you need a note to return to daycare/school/sports/work: Yes HPI HPI Comments History of Present Illness Details the patient presents to urgent care for evaluation of sore throat chills and body aches that started 01:00 this morning. Mild cough no shortness of breath no chest pain. COUNTS INCLUDE 234 BEDS AT THE [facility] Medical History (Updated 07/19/23 @ 13:51 by Vinicio Garza MD) Toe injury Mixed dyslipidemia Vitamin D deficiency Irritable bowel syndrome with diarrhea Environmental and seasonal allergies Mild intermittent asthma Arthralgia Refusal of blood product Fibromyalgia Morbid obesity due to excess calories Postmenopause Tendinitis of finger of right hand Essential hypertension Dyslipidemia (high LDL; low HDL) Diabetes mellitus with hyperglycemia, without long-term current use of insulin Surgical History Hx of colonoscopy Hx of umbilical hernia repair Hx of section Family History Father No problems noted. Mother No problems noted. 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 Sexual orientation: Straight/Heterosexual Gender identity: Female Cognitive needs: No Hearing needs: No Vision needs: Yes Female Reproductive History Menstrual Age of Menarche: 10 Review of Systems ENT Denies dizziness, Reports nasal congestion and Reports sore throat Card Denies rapid heart rate, Denies dyspnea and Denies dyspnea on exertion Resp Denies dyspnea and Denies dyspnea on exertion GI Denies dyspepsia and Denies heartburn Musc Denies arthralgias and Denies muscle cramps Neuro Denies dizziness, Denies focal weakness and Denies Other visual disturbances Physical Exam Vital Signs: Last Vital Signs Temp 97.8 F 08/05/23 10:47 Pulse 120 H 08/05/23 10:47 BP 130/72 08/05/23 10:47 Pulse Ox 98 08/05/23 10:47 BMI result Body Mass Index 38.8 Const General: healthy appearing and no acute distress HEENT Other: Mild oropharyngeal erythema Mouth: Normal oral and palatal mucosa present Resp Effort & Inspection: normal respiratory effort and able to speak in complete sentences Auscultation: clear to auscultation bilaterally Cardio Rate: regular rate Rhythm: regular rhythm Assessment & Plan Assessment & Plan (1) Viral syndrome: Code(s): B34.9 - Viral infection, unspecified Plan symptoms suggestive of viral illness will check for COVID flu RSV. Supportive measures recommended to patient. Orders: Orders SARS-CoV2/FLU/RSV Today R68.89 - Other general symptoms and signs Coding Level of Care Code Est Pt Level 3 (79719) Diagnoses Viral syndrome B34.9
== END 2023-08-05 11:07 | disposition home or self-care (01) ==
PROVIDERS: PCP Internal Medicine; Visit Provider Emergency Medicine
DX: B34.9 Viral infection, unspecified (principal)
CPT/HCPCS: 99213

== ENCOUNTER 2023-08-05 11:14 | Outpatient (REF) | payer OTHER, SELFPAY ==
[2023-08-05 14:12] LABS: Influenza A PCR NEGATIVE (Negative); Influenza B PCR NEGATIVE (Negative); Resp Syncy Virus RNA Qual PCR NEGATIVE (Negative); SARS COV2 PCR INHOUSE NEGATIVE (Negative)
== END 2023-08-05 11:15 | disposition home or self-care (01) ==
LOC: HO.LAB 11:14
PROVIDERS: Visit Provider Emergency Medicine
DX: Z11.52 Encounter for screening for COVID-19 (principal); Z20.822 Contact with and (suspected) exposure to COVID-19; R68.89 Other general symptoms and signs
CPT/HCPCS: 0241U

== ENCOUNTER 2024-01-02 08:11 | Outpatient (AMB) | payer OTHER, SELFPAY ==
--- NOTE | 2024-01-02 08:36 | AM.OFFWIN_ITS ---
Intake Vital Signs 01/02/24 08:37 Height 5 ft 2 in Weight 217 lb 6 oz BMI 39.8 BP 118/78 Blood Pressure Location Lt brachial Position Sitting Pulse 116 H Pulse Source Pulse Oximeter Temp 98.2 F Temp Source Oral Pulse Oximetry (%) 97 Oxygen Delivery Method Room Air Intake Visit Reasons: EP sore throat wheezing RT side pain Intake Note: Pt presents to the office today for c/o sore throat,wheezing,right sided pain and left ear pain. Pt states the sore throat and wheezing started tuesday. Patient Tobacco Use Status: Never used Tobacco Allergies Seasonal Allergies Allergy (Mild, Verified 01/02/24 08:57) runny nose, watery eyes Medication List - Last Reconciled 01/02/24 by Vinicio Garza MD albuterol sulfate 90 mcg/actuation 2 puffs PO QID PRN albuterol sulfate 2.5 mg (3 mL) inhalation QID PRN blood sugar diagnostic (FreeStyle Lite Strips) check fasting blood sugar twice a day before a meal blood sugar diagnostic (FreeStyle Lite Strips) Check fasting blood sugar twice a day before meals blood-glucose meter (FreeStyle Lite Meter kit) Fasting glucose twice a day before meals and keep a record dulaglutide (Trulicity) 0.75 mg (0.5 mL) subcut QWEEK empagliflozin (Jardiance) 10 mg PO QAM enalapril maleate 10 mg PO DAILY loratadine 10 mg PO DAILY meloxicam 15 mg PO DAILY PRN metformin 1,000 mg PO BIDWMEAL 3 months rosuvastatin 10 mg PO DAILY tizanidine 4 mg PO BEDTIME PRN HPI EP sore throat wheezing RT side pain HPI Details Patient presents for a sick visit. Reporting symptoms of sinus congestion, sore throat and difficulty swallowing. Low-grade fever. No family member is sick. No recent travel. Patient reports symptoms of malaise and fatigue. [facility] Medical History Toe injury Mixed dyslipidemia Vitamin D deficiency Irritable bowel syndrome with diarrhea Environmental and seasonal allergies Mild intermittent asthma Arthralgia Refusal of blood product Fibromyalgia Morbid obesity due to excess calories Postmenopause Tendinitis of finger of right hand Essential hypertension Dyslipidemia (high LDL; low HDL) Diabetes mellitus with hyperglycemia, without long-term current use of insulin Surgical History Hx of colonoscopy Hx of umbilical hernia repair Hx of section Family History Father No problems noted. Mother No problems noted. 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 Sexual orientation: Straight/Heterosexual Gender identity: Female Cognitive needs: No Hearing needs: No Vision needs: Yes Female Reproductive History Menstrual Age of Menarche: 10 Physical Exam Vital Signs: Last Vital Signs Temp 98.2 F 01/02/24 08:37 Pulse 116 H 01/02/24 08:37 BP 118/78 01/02/24 08:37 Pulse Ox 97 01/02/24 08:37 Oxygen Delivery Method Room Air 01/02/24 08:37 BMI result Body Mass Index 39.8 Const General: cooperative and healthy appearing Nutritional Appearance: well nourished Orientation/consciousness: patient oriented x3 Limitations: no limitations HEENT Head: Yes normal to inspection Eyes General: appearance normal, both eyes and all related structures Neck Neck: Yes normal visual inspection Chest Chest palpation & inspection: normal palpation of entire chest wall Resp Effort & Inspection: normal respiratory effort Neuro General: patient oriented x3 Results AMB Rapid Strep AMB Rapid Strep Negative Last Edit by Bell Edward CMA on 01/02/24 08:48 Results Reviewed Results Reviewed: Laboratory Last Values Strep Scn Rapid [facility] Negative 01/02/24 08:47 Assessment & Plan Assessment & Plan (1) Upper respiratory tract infection: Code(s): J06.9 - Acute upper respiratory infection, unspecified Plan: Antibiotics ordered. Increase fluid intake. Tylenol for aches and pains. If symptoms worsen, follow-up here for a recheck. Orders: Orders AMB Rapid Strep Screen Today Z13.9 - Encounter for screening, unspecified Coding Level of Care Code Est Pt Level 3 (17994) Diagnoses Upper respiratory tract infection J06.9
[2024-01-02 08:37] VITALS: BP 118/78; PULSE 116; TEMP 36.8; O2SAT 97; BMI 39.8
== END 2024-01-02 10:31 | disposition home or self-care (01) ==
PROVIDERS: PCP Internal Medicine; Visit Provider Internal Medicine
DX: J06.9 Acute upper respiratory infection, unspecified (principal); Z13.9 Encounter for screening, unspecified
CPT/HCPCS: 87880; 99213

== ENCOUNTER 2024-01-06 09:07 | Outpatient (AMB) | payer OTHER, SELFPAY ==
--- NOTE | 2024-01-06 09:11 | AM.OFFWIN_ITS ---
Intake Vital Signs 01/06/24 09:12 Height 5 ft 2 in Weight 217 lb BMI 39.7 BP 128/78 Blood Pressure Location Lt brachial Position Sitting Pulse 120 H Pulse Source Pulse Oximeter Temp 98.1 F Temp Source Oral Pulse Oximetry (%) 95 Oxygen Delivery Method Room Air Intake Visit Reasons: EP congestion cough sinus pain (lobby) Intake Note: pt is here for congestion, cough, sinus pressure and came this week and finished antibiotics but still not better Patient Tobacco Use Status: Never used Tobacco Allergies Seasonal Allergies Allergy (Mild, Verified 01/06/24 09:13) runny nose, watery eyes Do you need a note to return to daycare/school/sports/work: Yes HPI HPI Comments History of Present Illness Details 53-year-old female presents today compla ining of continued sinus pressure pain and congestion cough with wheezing. She was here 5 days ago put on a course of azithromycin that has not resolve any of her symptoms. [facility] Medical History Toe injury Mixed dyslipidemia Vitamin D deficiency Irritable bowel syndrome with diarrhea Environmental and seasonal allergies Mild intermittent asthma Arthralgia Refusal of blood product Fibromyalgia Morbid obesity due to excess calories Postmenopause Tendinitis of finger of right hand Essential hypertension Dyslipidemia (high LDL; low HDL) Diabetes mellitus with hyperglycemia, without long-term current use of insulin Surgical History Hx of colonoscopy Hx of umbilical hernia repair Hx of section Family History Father No problems noted. Mother No problems noted. 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 Sexual orientation: Straight/Heterosexual Gender identity: Female Cognitive needs: No Hearing needs: No Vision needs: Yes Female Reproductive History Menstrual Age of Menarche: 10 Review of Systems Const All systems reviewed & are unremarkable except as noted in HPI and below Reports headache(s) (Sinus headache) Eyes Reports no additional complaints ENT Reports headache(s) (Sinus headache), Reports nasal congestion, Reports nasal discharge, Reports sinus pain and Reports sinus pressure Card Reports no additional complaints Resp Reports chest congestion, Reports cough and Reports wheezing GI Reports no additional complaints Reports no additional complaints Musc Reports no additional complaints Neuro Reports headache(s) (Sinus headache) Aller/Immun Reports wheezing Physical Exam Vital Signs: BMI result Body Mass Index 39.7 Const General: acute distress mild HEENT Head: Yes normal to inspection, Yes normocephalic and Yes atraumatic Ears: hearing grossly normal bilaterally and TM's normal bilaterally General nose exam: Normal external nose present Face and sinus: Yes sinus tenderness Eyes General: appearance normal, both eyes and all related structures Resp Effort & Inspection: able to speak in complete sentences Auscultation: wheezes expiratory wheezes and inspiratory wheezes Cardio Rate: tachycardic Rhythm: regular rhythm and abnormal rhythm Heart sounds: S1 normal heart sound present and S2 normal heart sound present Results Reviewed Results Reviewed: Chest x-ray performed today was negative for consolidation. This was reviewed with the patient Assessment & Plan Assessment & Plan (1) Cough: Code(s): R05.9 - Cough, unspecified Plan: The patient will take a 10 day course of Augmentin with prednisone 2 help with her wheezing. (2) Asthmatic bronchitis: Code(s): J45.909 - Unspecified asthma, uncomplicated Plan: See plan Plan See plan Orders: Orders XR chest 2V Today R05.9 - Cough, unspecified Medications: New prednisone prednisone 5 mg: take 8 tablets (40 mg) on Day 1; 7 tablets (35 mg) on Day 2; then decrease by 1 tablet every day until finished PO 21 ea 0RF amoxicillin-pot clavulanate 500-125 mg (Augmentin) 1 tab PO BID 10 days 20 tabs 0RF Coding Level of Care Code Est Pt Level 4 (36227) Diagnoses Cough R05.9 Asthmatic bronchitis J45.909
[2024-01-06 09:12] VITALS: BP 128/78; PULSE 120; TEMP 36.7; O2SAT 95; BMI 39.7
== END 2024-01-06 10:47 | disposition home or self-care (01) ==
PROVIDERS: PCP Internal Medicine; Visit Provider Physician Assistant Medical
DX: R05.9 Cough, unspecified (principal); J45.909 Unspecified asthma, uncomplicated
CPT/HCPCS: 99214

== ENCOUNTER 2024-01-06 09:31 | Outpatient (REF) | payer OTHER, SELFPAY ==
--- NOTE | ~2024-01-06 | XR_ITS ---
EXAMINATION: XR CHEST CLINICAL INFORMATION: Unspecified cough. COMPARISON: None available. TECHNIQUE: 2 views of the chest were obtained. FINDINGS: There is no gross pneumothorax. Lung volumes are low. Heart size is normal. No pleural effusion. No focal consolidation to suggest pneumonia. XR/XR chest 2V IMPRESSION: No evidence of pneumonia. Low lung volumes.
== END 2024-01-06 09:32 | disposition home or self-care (01) ==
LOC: HO.HMGCX 09:31
PROVIDERS: PCP Internal Medicine; Visit Provider Physician Assistant Medical
DX: R05.9 Cough, unspecified (principal)
CPT/HCPCS: 71046

== ENCOUNTER 2024-03-22 08:41 | Outpatient (AMB) | payer OTHER, SELFPAY ==
[2024-03-22 09:31] VITALS: BP 126/74; PULSE 118; TEMP 36.7; O2SAT 97; BMI 39.7
--- NOTE | 2024-03-22 09:31 | AM.OFFWIN_ITS ---
Intake Vital Signs 03/22/24 09:31 Height 5 ft 2 in Weight 217 lb BMI 39.7 BP 126/74 Blood Pressure Location Rt brachial Position Sitting Pulse 118 H Pulse Source Pulse Oximeter Temp 98.0 F Temp Source Temporal Artery Scan Pulse Oximetry (%) 97 Intake Visit Reasons: EP congestion chills cough Intake Note: pt is here for congestion, cough, and chills and suspects she has covid due to her sister being pos Patient Tobacco Use Status: Never used Tobacco Allergies Seasonal Allergies Allergy (Mild, Verified 03/22/24 09:32) runny nose, watery eyes Do you need a note to return to daycare/school/sports/work: No HPI HPI Comments History of Present Illness Details 53 y/o female patient who presents to [facility] with c/o URI symptoms. Pt was visiting Mother and family in [place], returned Tuesday. Reports feeling tired, body chills, subjective fevers, headaches and nasal/chest congestion. Mother tested positive for COVID Tuesday. [facility] Medical History Toe injury Mixed dyslipidemia Vitamin D deficiency Irritable bowel syndrome with diarrhea Environmental and seasonal allergies Mild intermittent asthma Arthralgia Refusal of blood product Fibromyalgia Morbid obesity due to excess calories Postmenopause Tendinitis of finger of right hand Essential hypertension Dyslipidemia (high LDL; low HDL) Diabetes mellitus with hyperglycemia, without long-term current use of insulin Surgical History Hx of colonoscopy Hx of umbilical hernia repair Hx of section Family History Father No problems noted. Mother No problems noted. 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 Sexual orientation: Straight/Heterosexual Gender identity: Female Cognitive needs: No Hearing needs: No Vision needs: Yes Female Reproductive History Menstrual Age of Menarche: 10 Review of Systems Const All systems reviewed & are unremarkable except as noted in HPI and below Physical Exam Vital Signs: Last Vital Signs Temp 98.0 F 03/22/24 09:31 Pulse 118 H 03/22/24 09:31 BP 126/74 03/22/24 09:31 Pulse Ox 97 03/22/24 09:31 BMI result Body Mass Index 39.7 Const General: comfortable and no acute distress Nutritional Appearance: obese Orientation/consciousness: patient oriented x3 HEENT Head: Yes normocephalic Ears: external ears normal and TM abnormal wth effusion, erythematous and with fluid behind the TM General nose exam: Abnormal mucous membranes and turbinates present boggy and erythematous Face and sinus: Yes sinuses nontender Mouth: moist mucous membranes Throat: Yes posterior oropharynx normal Resp Effort & Inspection: normal respiratory effort and able to speak in complete sentences Auscultation: clear to auscultation bilaterally, no crackles, no rales, no rhonchi and no wheezes Cardio Rate: regular rate Rhythm: regular rhythm Neuro General: patient oriented x3, gait normal and moves all extremities Psych Speech and movement: Normal speech and movement present Assessment & Plan Assessment & Plan (1) Upper respiratory tract infection: Code(s): J06.9 - Acute upper respiratory infection, unspecified Qualifiers: URI type: unspecified viral URI Qualified Code(s): J06.9 - Acute upper respiratory infection, unspecified Plan: SARs ordered Suspecting COVID due to recent exposure Prescribed Paxlovid Acetaminophen for pain relief or fever Rest and hydrate well with plenty of fluids Orders: Orders SARS-CoV2/FLU/RSV Today R09.89 - Other specified symptoms and signs involving the circulatory and respiratory systems Medications: New benzonatate 100 mg PO TID 30 caps 0RF cough J06.9 - Acute upper respiratory infection, unspecified nirmatrelvir-ritonavir 300 mg (150 mg x 2)-100 mg (Paxlovid) take TWO 150 mg tablets of nirmatrelvir with ONE 100 mg tablet of ritonavir twice daily for 5 days PO 30 ea 0RF Coding Level of Care Code Est Pt Level 3 (29118) Diagnoses Viral upper respiratory tract infection J06.9 URI type: unspecified viral URI Time Spent (min) 15
== END 2024-03-22 10:33 | disposition home or self-care (01) ==
PROVIDERS: PCP Internal Medicine; Visit Provider Nurse Practitioner Family
DX: J06.9 Acute upper respiratory infection, unspecified (principal)
CPT/HCPCS: 99213

== ENCOUNTER 2024-03-22 10:00 | Outpatient (REF) | payer OTHER, SELFPAY ==
[2024-03-22 15:41] LABS: Influenza A PCR NEGATIVE (Negative); Influenza B PCR NEGATIVE (Negative); Resp Syncy Virus RNA Qual PCR NEGATIVE (Negative); SARS COV2 PCR INHOUSE POSITIVE (Negative)
== END 2024-03-22 10:01 | disposition home or self-care (01) ==
LOC: HO.LAB 10:00
PROVIDERS: Visit Provider Nurse Practitioner Family
DX: R09.89 Other specified symptoms and signs involving the circulatory and respiratory systems (principal)
CPT/HCPCS: 0241U

== ENCOUNTER 2024-04-13 07:08 | Outpatient (REF) | payer OTHER, SELFPAY ==
--- NOTE | ~2024-04-13 | MM_ITS ---
EXAMINATION: MM SCREENING DIGITAL BREAST TOMOSYNTHESIS, BILATERAL CLINICAL INFORMATION: Screening. Asymptomatic. COMPARISON: Mammography: This study is compared with prior exams dating back to 2020. TECHNIQUE: Digital breast tomosynthesis is performed in both the craniocaudal and mediolateral oblique views along with computer-aided detection (CAD). Synthesized 2D images are generated from the tomosynthesis. FINDINGS: The breasts are almost entirely fatty (ACR BI-RADS breast composition Category a). There are no significant masses, abnormal calcifications, or other abnormalities. MM/MM tomosynthesis screening BI IMPRESSION: No mammographic evidence of malignancy. ASSESSMENT: BI-RADS BI-RADS 1 - Negative RECOMMENDATION: Routine annual mammography screening. 1 year F/U This examination should not preclude the clinical evaluation of a suspicious palpable abnormality. This patient's information was entered into a reminder system with a target due date for their next mammogram.
== END 2024-04-13 07:09 | disposition home or self-care (01) ==
LOC: HO.MAMMO 07:08
PROVIDERS: PCP Internal Medicine; Visit Provider Internal Medicine
DX: Z12.31 Encounter for screening mammogram for malignant neoplasm of breast (principal)
CPT/HCPCS: 77063; 77067

== ENCOUNTER → 2024-04-13 07:30 | Outpatient (BNV) | payer OTHER, SELFPAY | PROVIDERS: PCP Internal Medicine; Visit Provider Radiology Diagnostic Radiology | DX: Z12.31 Encounter for screening mammogram for malignant neoplasm of breast (principal) | CPT/HCPCS: 77063; 77067 ==

== ENCOUNTER 2024-04-25 08:12 | Outpatient (AMB) | payer OTHER, SELFPAY ==
[2024-04-25 08:34] VITALS: BP 138/86; PULSE 97; TEMP 36.6; O2SAT 98
--- NOTE | 2024-04-25 08:34 | AM.OFFWIN_ITS ---
Intake Vital Signs 04/25/24 08:34 Height 5 ft 2 in BP 138/86 Blood Pressure Location Lt brachial Position Sitting Pulse 97 Pulse Source Pulse Oximeter Temp 98 F Temp Source Temporal Artery Scan Pulse Oximetry (%) 98 Intake Visit Reasons: EP sciatic pain Intake Note: pt is here for sciatic pain Patient Tobacco Use Status: Never used Tobacco Allergies Seasonal Allergies Allergy (Mild, Verified 04/25/24 08:38) runny nose, watery eyes Do you need a note to return to daycare/school/sports/work: Yes HPI HPI Comments History of Present Illness Details She presents with sciatic pain She has hx of this and it is always left sided when it occurs Onset last week without trauma or injury Yesterday at work the pain worsened When getting up and down from desk her pain is worse Tizanidine yesterday helped; had left over No urine or bowel incontinence No dysuria, frequency, urgency, hematuria No vaginal bleeding or discharge Throbbing L sided; intermittent radiation down back of leg to back of knee No numbness, abdominal pain. [facility] Medical History Toe injury Mixed dyslipidemia Vitamin D deficiency Irritable bowel syndrome with diarrhea Environmental and seasonal allergies Mild intermittent asthma Arthralgia Refusal of blood product Fibromyalgia Morbid obesity due to excess calories Postmenopause Tendinitis of finger of right hand Essential hypertension Dyslipidemia (high LDL; low HDL) Diabetes mellitus with hyperglycemia, without long-term current use of insulin Surgical History Hx of colonoscopy Hx of umbilical hernia repair Hx of section Family History Father No problems noted. Mother No problems noted. 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 Sexual orientation: Straight/Heterosexual Gender identity: Female Cognitive needs: No Hearing needs: No Vision needs: Yes Female Reproductive History Menstrual Age of Menarche: 10 Review of Systems Const Denies chills and Denies fever(s) Card Denies chest pain and Denies dyspnea Resp Denies cough and Denies dyspnea GI Denies abdominal pain and Denies fecal incontinence Denies dysuria and Denies urinary incontinence Musc Reports back pain, Denies numbness and Reports radiating pain into limb Skin/Breast Denies rash Neuro Denies numbness and Denies paresthesias Physical Exam Vital Signs: Last Vital Signs Temp 98 F 04/25/24 08:34 Pulse 97 04/25/24 08:34 BP 138/86 04/25/24 08:34 Pulse Ox 98 04/25/24 08:34 General: Non-toxic, NAD. Speaking full sentences. Skin: Warm dry throughout Eye: EOMI Respiratory: CTA bilaterally. No wheezes, rales or rhonchi Cardiac: RRR. No murmur MSK: No midline spinal tenderness. + tenderness to palpation L sciatic region. Negative straight leg raise bilaterally. Pain when standing from L glute to posterior L knee. 5/5 strength dorsal and plantar flexion great toe bilaterally. Neurology: A. No aphasia or facial droop. Psych: Good mood and affect Assessment & Plan Assessment & Plan (1) Sciatica of left side: Code(s): M54.32 - Sciatica, left side Plan: Patient seen and evaluated. Dexamethasone; discussed no nsaids. + keep close eye on glucose while on medicine Tizaidine script refilled; lethargy. No alcohol or driving Discussed gentle stretching Patient gave verbal understanding and had no additional questions or concerns at time of discharge All questions answered Medications: New tizanidine 4 mg PO BID PRN 10 caps 0RF muscle spasticity dexamethasone 4 mg PO DAILY 4 tabs 0RF Coding Level of Care Code Est Pt Level 3 (47025) Diagnoses Sciatica of left side M54.32
== END 2024-04-25 09:36 | disposition home or self-care (01) ==
PROVIDERS: PCP Internal Medicine; Visit Provider Physician Assistant
DX: M54.32 Sciatica, left side (principal)
CPT/HCPCS: 99213

== ENCOUNTER 2024-07-02 15:40 | Outpatient (AMB) | payer OTHER, SELFPAY ==
--- NOTE | 2024-07-02 15:45 | MHC.OFFWIV ---
Intake Vital Signs 07/02/24 15:50 Height 5 ft 2 in Weight 217 lb BMI 39.7 BP 140/102 H Blood Pressure Location Rt brachial Position Sitting Pulse 101 H Pulse Source Pulse Oximeter Pulse Oximetry (%) 93 Oxygen Delivery Method Room Air Intake Visit Reasons: EP- Intake Note: Patient here for bilat shoulder pain. She would also like a refill on meds. Patient Tobacco Use Status: Never used Tobacco Allergies Seasonal Allergies Allergy (Mild, Verified 07/02/24 15:53) runny nose, watery eyes Do you need a note to return to daycare/school/sports/work: No HPI EP- HPI Details This note is constructed using voice recognition software. While every effort has been made to ensure accuracy, mail clerk errors may have been included. The patient is a 53 year old female who presents to the clinic today with chronic shoulder pain and headaches, request for medication refill, request for flu shot. She notes that she has a history of fibromyalgia, and has had extensive workup on her shoulders, where she was previously pending referral to ortho, however was unable to go due to insurance changes. She has had no additional or new pains, and the pains tend to be fairly global in the shoulder, worsened by lying on that shoulder. She denies numbness and tingling in the hands, or reduced range of motion or strength. She notes that in the past she had been prescribed tizanidine which seemed to help the pain quite a bit. She does note that since the shoulders have been painful, she has had some increased headaches starting primarily over the cervical region, traveling over the top of the scalp into the front of the head. She denies lightheadedness, dizziness, confusion, trauma to the head or shoulders. She also notes that she has been without her enalapril for the past week, she had requested refills on enalapril, metformin, and loratadine through primary care however they have not been responding to as of yet. She denies chest pain, palpitations, or any other symptoms associated with this. She does not monitor her blood pressure routinely at home. [facility] Medical History Toe injury Mixed dyslipidemia Vitamin D deficiency Irritable bowel syndrome with diarrhea Environmental and seasonal allergies Mild intermittent asthma Arthralgia Refusal of blood product Fibromyalgia Morbid obesity due to excess calories Postmenopause Tendinitis of finger of right hand Essential hypertension Dyslipidemia (high LDL; low HDL) Diabetes mellitus with hyperglycemia, without long-term current use of insulin Surgical History Hx of colonoscopy Hx of umbilical hernia repair Hx of section Family History Father No problems noted. Mother No problems noted. 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 Sexual orientation: Straight/Heterosexual Gender identity: Female Cognitive needs: No Hearing needs: No Vision needs: Yes Female Reproductive History Menstrual Age of Menarche: 10 Review of Systems Const All systems reviewed & are unremarkable except as noted in HPI and below Physical Exam Vital Signs: Last Vital Signs Pulse 101 H 07/02/24 15:50 BP 140/102 H 07/02/24 15:50 Pulse Ox 93 07/02/24 15:50 Oxygen Delivery Method Room Air 07/02/24 15:50 BMI result Body Mass Index 39.7 Const General: cooperative, healthy appearing, comfortable, no acute distress and alert Orientation/consciousness: patient oriented x3 Limitations: no limitations Eyes General: appearance normal, both eyes and all related structures Neck Neck: Yes normal visual inspection and Yes full ROM Resp Effort & Inspection: normal respiratory effort and able to speak in complete sentences Auscultation: clear to auscultation bilaterally Cardio Jugular venous distension: no JVD Palpation: normal PMI Rate: regular rate Heart sounds: S1 normal heart sound present, S2 normal heart sound present, no click, no gallops, no murmurs and no rubs Skin General skin exam: no rashes or lesions noted, elasticity normal and turgor normal Neuro General: patient oriented x3 Cranial nerves: Yes CN's II-XII intact bilaterally Extrem Other: Shoulders with abduction limited to 100 degrees due to pain. No area of tenderness to palpation, however there is increased muscle bulging in the trapezius region bilaterally as well as these cervical region paraspinal. Distal neurovascular exam intact. General: Yes normal to inspection, Yes full ROM, Yes capillary refill normal and Yes normal exam except as noted Psych Appearance: grossly normal Mental Status: mental status grossly normal Speech and movement: Normal speech and movement present Affect: normal affect Office Procedures Flu Questionnaire Does the patient have a severe egg allergy?: No Does the patient have severe life threatening allergies?: No Does the patient have a fever or illness today?: No Has the patient ever had Guillain-[place] Syndrome?: No Has the patient ever had any past reaction to a flu shot?: No Assessment & Plan Assessment & Plan (1) Bilateral shoulder pain: Code(s): M25.511 - Pain in right shoulder; M25.512 - Pain in left shoulder Qualifiers: Chronicity: chronic Qualified Code(s): M25.511 - Pain in right shoulder; M25.512 - Pain in left shoulder; G89.29 - Other chronic pain Plan: Given that patient has previously reported imaging, workup, and potential for referral, advised patient to follow up with primary care for repeat referral as needed. Additionally we refilled her tizanidine which had previously helped this pain. Additional imaging not carried out at this time due to lack of worsening of symptoms. (2) Encounter for medication refill: Code(s): Z76.0 - Encounter for issue of repeat prescription Plan: Refill of medications provided today. Advised patient to follow up with primary care for chronic refills this I have provided only a limited supply of 30 days. Advised patient to obtain overdue labs for monitoring of chronic conditions and follow up with PCP. Plan See above for full details and plan. Orders: Orders Influenza [id number] Immunization Today Z23 - Encounter for immunization Medications: Changed From metformin 1,000 mg PO BIDWMEAL 3 months 180 tabs 3RF E11.65 - Type 2 diabetes mellitus with hyperglycemia To metformin 1,000 mg PO BIDWMEAL 1 month 60 tabs 0RF E11.65 - Type 2 diabetes mellitus with hyperglycemia From tizanidine 4 mg PO BEDTIME PRN 30 caps 0RF muscle spasticity To tizanidine 4 mg PO BEDTIME 10 days PRN 10 caps 0RF muscle spasticity Refilled enalapril maleate 10 mg PO DAILY 30 tabs 0RF loratadine 10 mg PO DAILY 30 tabs 0RF J30.9 - Allergic rhinitis, unspecified Coding Level of Care Code Est Pt Level 3 (58244) Diagnoses Chronic pain of both shoulders M25.511; M25.512; G89.29 Chronicity: chronic Encounter for medication refill Z76.0
[2024-07-02 15:50] VITALS: BP 140/102; PULSE 101; O2SAT 93; BMI 39.7
== END 2024-07-02 16:43 | disposition home or self-care (01) ==
PROVIDERS: PCP Internal Medicine; Visit Provider Registered Nurse
DX: M25.511 Pain in right shoulder (principal); M25.512 Pain in left shoulder; G89.29 Other chronic pain; Z76.0 Encounter for issue of repeat prescription; Z23 Encounter for immunization

== ENCOUNTER → 2024-07-02 15:40 | Outpatient (BNVA) | payer OTHER, SELFPAY | PROVIDERS: PCP Internal Medicine | DX: M25.511 Pain in right shoulder (principal); M25.512 Pain in left shoulder; G89.29 Other chronic pain; I10 Essential (primary) hypertension; E11.9 Type 2 diabetes mellitus without complications; Z76.0 Encounter for issue of repeat prescription; Z23 Encounter for immunization | CPT/HCPCS: 90471; 90656 ==

== ENCOUNTER 2024-07-31 06:35 | Outpatient (REF) | payer OTHER, SELFPAY ==
[2024-07-31 10:49] LABS: Alanine Aminotransferase 44 U/L (0-31); Anion Gap 13 (12-20); Aspartate Amino Transferase 35 U/L (5-31); Blood Urea Nitrogen 8 mg/dL (9-16); Calcium 8.9 mg/dL (8.4-10.2); Carbon Dioxide 24 mmol/L (22-29); Chloride 104 mmol/L (96-108); Cholesterol 239 mg/dL (<200); Estimated Average Glucose 235 mg/dL; Estimated Glomerular Filt Rate > 60; Glucose Fasting 194 mg/dL (60-99); HDL Cholesterol 46 mg/dL (>40); Hemoglobin A1C 283.9045 umol/L; Hemoglobin A1c % 9.8 % (<6.0); LDL Cholesterol Calculated 160 mg/dL (<100); Potassium 4.4 mmol/L (3.3-5.1); Sodium 137 mmol/L (135-145); Total Hemoglobin (HGBA1C) 3403.6845 umol/L; Triglycerides 167 mg/dL (<150)
[2024-07-31 11:08] LABS: Vitamin D 25-OH Total 42.9 ng/mL (>30)
[2024-07-31 11:18] LABS: Creatinine Urine 248.55 mg/dL; Microalbum/Creatinine Ratio Ur 12.4 ug/mg cr (<30)
== END 2024-07-31 06:36 | disposition home or self-care (01) ==
LOC: HO.HMGCLDS 06:35
PROVIDERS: PCP Internal Medicine; Visit Provider Internal Medicine
DX: E11.65 Type 2 diabetes mellitus with hyperglycemia (principal); Z78.0 Asymptomatic menopausal state; E55.9 Vitamin D deficiency, unspecified; E78.2 Mixed hyperlipidemia
CPT/HCPCS: 36415; 80048; 80061; 82043; 82306; 82570; 83036; 84450; 84460

== ENCOUNTER 2024-08-03 08:13 | Outpatient (AMB) | payer OTHER, SELFPAY ==
[2024-08-03 08:15] VITALS: BP 142/80; PULSE 72; O2SAT 98; BMI 39.1
--- NOTE | 2024-08-03 08:15 | A.OFFPC_ITS ---
Vital Signs 08/03/24 08:15 Height 5 ft 2 in Weight 214 lb BMI 39.1 BP 142/80 H Blood Pressure Location Rt brachial Position Sitting Pulse 72 Pulse Source Pulse Oximeter Pulse Oximetry (%) 98 Intake Visit Reasons: PE Intake Note: Pt is here for PE Allergies Seasonal Allergies Allergy (Mild, Verified 08/03/24 08:15) runny nose, watery eyes Tobacco use date assessed: 08/03/24 Dental Screening Dental Screen Date: 08/03/24 Did you have a dental visit in the last 12 months?: Yes Did you have a dental problem in the last 6 months where you did not have access to dental care?: No Was dental information given to patient?: Patient has dentist HPI HPI Comments History of Present Illness Details 53 y/o female patient who presents to [facility] for PE. Pt of Dr. Marcos. Phmx significant for Obesity, HTN, T2DM, Asthma, and Dyslipidemia. HCM: Mammo: 03/2024. PAP: 2022 Colonoscopy: 2020. Medications reviewed and refilled. Labs reviewed. [facility] Medical History (Updated 08/03/24 @ 08:57 by Sharon Neal NP) Hypertension Encounter for routine adult health examination without abnormal findings Toe injury Mixed dyslipidemia Vitamin D deficiency Irritable bowel syndrome with diarrhea Environmental and seasonal allergies Mild intermittent asthma Arthralgia Refusal of blood product Fibromyalgia Morbid obesity due to excess calories Postmenopause Tendinitis of finger of right hand Essential hypertension Dyslipidemia (high LDL; low HDL) Diabetes mellitus with hyperglycemia, without long-term current use of insulin Surgical History Hx of colonoscopy Hx of umbilical hernia repair Hx of section Family History Father No problems noted. Mother No problems noted. 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 1. Little interest or pleasure in doing things: not at all 2. Feeling down, depressed, or hopeless: not at all 3. Trouble falling or staying asleep, or sleeping too much: not at all 4. Feeling tired or having little energy: not at all 5. Poor appetite or overeating: not at all 6. Feeling bad about yourself - or that you are a failure or have let yourself or your family down: not at all 7. Trouble concentrating on things, such as reading the newspaper or watching television: not at all 8. Moving or speaking so slowly that other people could have noticed. Or the opposite - being so fidgety or restless that you have been moving around a lot more than usual: not at all 9. Thoughts that you would be better off or of hurting yourself in some way: not at all Total score: 0 Depression Screening Interpretation: Negative Depression Screening Done: Yes 11749 - PHQ-9 Billing: Yes Source: Developed by Drs. Paul Ramirez, Yue Roman, Luis Perry and colleagues, with an educational billy from [employer]. Thrive Questionnaire Date Thrive assessed: 08/03/24 I am a: Patient What is your living situation today?: I have a steady place to live Within the past 12 months, did the food you bought not last and you didn't have the money to get more?: I choose not to answer this question Within the past 12 months, did you worry whether your food would run out before you got money to buy more?: I choose not to answer this question Do you have trouble paying for medicines?: No Do you have trouble getting transportation to medical appointments?: No Do you have trouble paying your heating and electricity bill?: No Do you have trouble taking care of your child, family member or friend?: No Do you have trouble with day-to-day activities such as bathing, preparing meals, shopping, managing finances, etc.?: No Are you currently unemployed and looking for a job?: No Are you interested in more education?: No Please select the resources that you would like help with: None Currently or been in a relationship where the following occur: No concerns reported THRIVE Score: 0 AUDIT C Alcohol Use Questionnaire (AUDIT-C) 1. How often do you have a drink containing alcohol?: Monthly or less 2. How many drinks containing alcohol do you have on a typical day when you are drinking?: 1 or 2 3. How often do you have six or more drinks on one occasion?: Never Total Score: 1 Score Reviewed/Action Taken: Yes KAMRAN-7 AMB Questionnaire KAMRAN-7 Date KAMRAN - 7 assessed: 08/03/24 Feeling nervous, anxious, or on edge: 0 = Not at all Not being able to stop or control worryin = Not at all Worrying too much about different things: 0 = Not at all Trouble relaxin = Not at all Being so restless that it is hard to sit still: 0 = Not at all Becoming easily annoyed or irritable: 0 = Not at all Feeling afraid as if something awful might happen: 0 = Not at all Total KAMRAN-7 score (0-4 normal; 5-9 mild; 10-14 moderate; 15-21 severe): 0 Source: Developed by Drs. Paul Ramirez, Yue Roman, Luis Perry and colleagues, with an educational billy from [employer]. KAMRAN-7 Assessment Billing KAMRAN-7 Assessment Tool: KAMRAN-7 Assessment 57112 Review of Systems Const All systems reviewed & are unremarkable except as noted in HPI and below Physical exam (Primary Care) Vital Signs: Last Vital Signs Pulse 72 08/03/24 08:15 BP 142/80 H 08/03/24 08:15 Pulse Ox 98 08/03/24 08:15 BMI result Body Mass Index 39.1 Tobacco/Smoking Status: Tobacco use Status Tobacco use date assessed 08/03/24 08/03/24 08:16 Patient Tobacco Use Status Never used Tobacco 08/03/24 08:16 e-Cigarette/Vaping Use Never Used 08/03/24 08:16 PHQ-9: PHQ-9 Score PHQ-9: Total score 0 08/03/24 08:39 Depression Screening Interpretation: Negative Thrive Assessment: Date of Thrive Assessment Date Thrive assessed 08/03/24 08/03/24 08:16 Currently or been in a relationship where the following occur: No concerns reported Const General: comfortable and no acute distress Nutritional Appearance: obese morbidly obese Orientation/consciousness: patient oriented x3 HENMT Head: Yes normocephalic Ears: external ears normal and TM's normal bilaterally General nose exam: Normal nares present Face and sinus: Yes sinuses nontender Mouth: moist mucous membranes Throat: Yes tonsils normal Eyes Pupils: Equal, round and reactive pupils present EOM: EOMs intact bilaterally Direct Ophthalmoscopy: normal light reflex Neck Neck: Yes full ROM and Yes no lymphadenopathy Resp Effort & Inspection: normal respiratory effort and able to speak in complete sentences Auscultation: clear to auscultation bilaterally, no crackles, no rales, no rhonchi and no wheezes Cardio Heart sounds: S1 normal heart sound present and S2 normal heart sound present GI Inspection: Yes Abdominal panniculus present and Yes obesity Palpation (GI): Soft to palpation, not firm, nontender, no guarding and not rigid Percussion: Yes normal to percussion Auscultation: normal bowel sounds Rectal Exam - Female: deferred General: Yes no CVA tenderness and Yes deferred Back/Spine/Pelvis Back: no CVA tenderness Skin General skin exam: no rashes or lesions noted Neuro General: patient oriented x3, gait normal and moves all extremities Cranial nerves: Yes Equal, round and reactive pupils present Motor exam (neuro): 5/5 motor strength present throughout Extrem General: Yes full ROM and Yes capillary refill normal Psych Speech and movement: Normal speech and movement present Coding Level of Care Code Est Pt Prev Care 40-64y(45278) Diagnoses Encounter for routine adult health examination without abnormal findings Z00.00 Mixed dyslipidemia E78.2 Moderate persistent asthma without complication J45.40 Asthma complication type: uncomplicated Type 2 diabetes mellitus with hyperglycemia, without long-term current use of insulin E11.65 Diabetes mellitus type: type 2 Primary hypertension I10 Hypertension type: primary hypertension Additional Codes KAMRAN-7 Assessment Billing - KAMRAN-7 Assessment Tool: KAMRAN-7 Assessment 91336 ([id number]) PHQ-9 - 32962 - PHQ-9 Billing: Yes ([id number]) Time Spent (min) 30 Assessment & Plan Assessment & Plan (1) Encounter for routine adult health examination without abnormal findings: Code(s): Z00.00 - Encounter for general adult medical examination without abnormal findings Category: Medical Plan: Exam WNL (2) Mixed dyslipidemia: Code(s): E78.2 - Mixed hyperlipidemia Category: Medical Plan: Discussed lifestyle changes; Healthy diet, exercise and weight loss. (3) Asthma, moderate persistent: Code(s): J45.40 - Moderate persistent asthma, uncomplicated Category: Medical Qualifiers: Asthma complication type: uncomplicated Qualified Code(s): J45.40 - Moderate persistent asthma, uncomplicated Plan: Well controlled on current regiment. (4) Diabetes mellitus with hyperglycemia, without long-term current use of insulin: Comment: NIDDM Code(s): E11.65 - Type 2 diabetes mellitus with hyperglycemia Category: Medical Qualifiers: Diabetes mellitus type: type 2 Qualified Code(s): E11.65 - Type 2 diabetes mellitus with hyperglycemia Plan: Discussed lifestyle changes; Healthy diet, exercise and weight loss. (5) Hypertension: Code(s): I10 - Essential (primary) hypertension Category: Medical Qualifiers: Hypertension type: primary hypertension Qualified Code(s): I10 - Essential (primary) hypertension Plan: Discussed lifestyle changes; Healthy diet, exercise and weight loss. Plan Discussed lifestyle changes; Healthy diet, exercise and weight loss. Medications: Changed From metformin 1,000 mg PO BIDWMEAL 1 month 60 tabs 0RF E11.65 - Type 2 diabetes mellitus with hyperglycemia To metformin 1,000 mg PO BID 180 tabs 2RF E11.65 - Type 2 diabetes mellitus with hyperglycemia Refilled enalapril maleate 10 mg PO DAILY 90 tabs 1RF I10 - Essential (primary) hypertension empagliflozin (Jardiance) Take in a.m. 1 hour before breakfast with a glass of water. Do not mix with other medications 10 mg PO QAM 30 tabs 4RF E11.65 - Type 2 diabetes mellitus with hyperglycemia loratadine 10 mg PO DAILY 90 tabs 1RF J30.9 - Allergic rhinitis, unspecified rosuvastatin 10 mg PO DAILY 90 tabs 2RF albuterol sulfate 2.5 mg (3 mL) inhalation QID PRN 75 mL 2RF shortness of breath or wheezing J45.20 - Mild intermittent asthma, uncomplicated albuterol sulfate 90 mcg/actuation 2 puffs PO QID PRN 6.7 grams 1RF wheezing J45.40 - Moderate persistent asthma, uncomplicated dulaglutide (Trulicity) 0.75 mg (0.5 mL) subcut QWEEK 2 mL 2RF E11.65 - Type 2 diabetes mellitus with hyperglycemia Discontinued dexamethasone Discontinued Reason: Patient Completed Course 4 mg PO DAILY 4 tabs 0RF tizanidine Discontinued Reason: Patient Completed Course 4 mg PO BEDTIME 10 days PRN 10 caps 0RF muscle spasticity
== END 2024-08-03 09:09 | disposition home or self-care (01) ==
LOC: HO.HMCC 08:13
PROVIDERS: PCP Internal Medicine; Visit Provider Nurse Practitioner Family
DX: Z00.00 Encounter for general adult medical examination without abnormal findings (principal); E78.2 Mixed hyperlipidemia; J45.40 Moderate persistent asthma, uncomplicated; E11.65 Type 2 diabetes mellitus with hyperglycemia; I10 Essential (primary) hypertension

== ENCOUNTER → 2024-08-03 08:13 | Outpatient (BNVA) | payer OTHER, SELFPAY | PROVIDERS: PCP Internal Medicine; Visit Provider Nurse Practitioner Family | DX: Z00.00 Encounter for general adult medical examination without abnormal findings (principal); E78.2 Mixed hyperlipidemia; J45.40 Moderate persistent asthma, uncomplicated; E11.65 Type 2 diabetes mellitus with hyperglycemia; I10 Essential (primary) hypertension; Z79.84 Long term (current) use of oral hypoglycemic drugs | CPT/HCPCS: 96127 ==

== ENCOUNTER 2024-09-21 07:53 | Outpatient (REF) | payer OTHER, SELFPAY ==
[2024-09-21 10:45] LABS: Influenza A PCR NEGATIVE (Negative); Influenza B PCR NEGATIVE (Negative); Resp Syncy Virus RNA Qual PCR NEGATIVE (Negative); SARS COV2 PCR INHOUSE NEGATIVE (Negative)
== END 2024-09-21 07:54 | disposition home or self-care (01) ==
LOC: HO.LNP 07:53
PROVIDERS: PCP Internal Medicine; Visit Provider Nurse Practitioner Family
DX: J06.9 Acute upper respiratory infection, unspecified (principal)
CPT/HCPCS: 0241U; 87880

== ENCOUNTER 2024-09-21 08:00 | Outpatient (AMB) | payer OTHER, SELFPAY ==
[2024-09-21 08:34] VITALS: BP 126/80; PULSE 101; TEMP 36.5; O2SAT 97
--- NOTE | 2024-09-21 08:34 | MHC.OFFWIV ---
Intake Vital Signs 09/21/24 08:34 Weight 216 lb BP 126/80 Blood Pressure Location Lt brachial Position Sitting Pulse 101 H Pulse Source Pulse Oximeter Temp 97.7 F Temp Source Oral Pulse Oximetry (%) 97 Oxygen Delivery Method Room Air Intake Visit Reasons: EP-sore throat, stuffy nose, cough, headache Intake Note: Patient here for sore throat, stuffy nose, cough and headache that started a few days ago. Patient Tobacco Use Status: Never used Tobacco Allergies Seasonal Allergies Allergy (Mild, Verified 09/21/24 08:37) runny nose, watery eyes Do you need a note to return to daycare/school/sports/work: No HPI EP-sore throat, stuffy nose, cough, headache HPI Details This is a 53-year-old female patient who presents to the walk-in clinic today with report of a 2 day history of sore throat, nasal congestion, cough with yellow sputum, headache, and left ear pain. Reports that her son also had similar symptoms. Has been taking NyQuil, saline nasal spray, and using albuterol inhaler as needed. Denies any fever or chills. Denies shortness of breath. Has had up-to-date flu and COVID vaccinations. [facility] Medical History Hypertension Encounter for routine adult health examination without abnormal findings Toe injury Mixed dyslipidemia Vitamin D deficiency Irritable bowel syndrome with diarrhea Environmental and seasonal allergies Mild intermittent asthma Arthralgia Refusal of blood product Fibromyalgia Morbid obesity due to excess calories Postmenopause Tendinitis of finger of right hand Essential hypertension Dyslipidemia (high LDL; low HDL) Diabetes mellitus with hyperglycemia, without long-term current use of insulin Surgical History Hx of colonoscopy Hx of umbilical hernia repair Hx of section Family History Father No problems noted. Mother No problems noted. 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 Sexual orientation: Straight/Heterosexual Gender identity: Female Cognitive needs: No Hearing needs: No Vision needs: Yes Female Reproductive History Menstrual Age of Menarche: 10 Review of Systems Const All systems reviewed & are unremarkable except as noted in HPI and below Physical Exam Vital Signs: Last Vital Signs Temp 97.7 F 09/21/24 08:34 Pulse 101 H 09/21/24 08:34 BP 126/80 09/21/24 08:34 Pulse Ox 97 09/21/24 08:34 Oxygen Delivery Method Room Air 09/21/24 08:34 Const General: cooperative and ill appearing acutely HEENT Head: Yes normal to inspection Ears: hearing grossly normal bilaterally, external ears normal, TM normal on the right and TM abnormal wth effusion purulent and erythematous General nose exam: Normal external nose present and Nasal discharge present mucoid Face and sinus: Yes normal facial exam Mouth: Normal oral and palatal mucosa present Throat: Yes posterior oropharynx normal Neck Neck: Yes no lymphadenopathy Resp Effort & Inspection: normal respiratory effort Auscultation: clear to auscultation bilaterally Cardio Rate: regular rate Rhythm: regular rhythm Heart sounds: S1 normal heart sound present and S2 normal heart sound present Skin General skin exam: no rashes or lesions noted Extrem General: Yes normal to inspection and Yes no clubbing, cyanosis or edema Psych Appearance: grossly normal Mental Status: mental status grossly normal Speech and movement: Normal speech and movement present Assessment & Plan Assessment & Plan (1) Left otitis media with effusion: Code(s): H65.92 - Unspecified nonsuppurative otitis media, left ear Plan: Augmentin b.i.d. 7 days for left otitis media. Reviewed indications, use, possible side effects of medication. (2) Upper respiratory infection: Code(s): J06.9 - Acute upper respiratory infection, unspecified Qualifiers: URI type: unspecified viral URI Qualified Code(s): J06.9 - Acute upper respiratory infection, unspecified Plan: Advised [id number] cold/flu medication, and continued use of saline nasal spray and albuterol inhaler as needed. Rapid strep in the office was negative. COVID/flu/RSV swab was obtained in the office today and patient is aware she will be notified of these results once they are available. Advised increased hydration, rest, healthy diet/vitamin intake. If she does not improve with time and measures noted, she can return to the clinic for further evaluation. She verbalizes understanding and agrees to plan. Orders: Orders SARS-CoV2/FLU/RSV Today J06.9 - Acute upper respiratory infection, unspecified Medications: New amoxicillin-pot clavulanate 875-125 mg Take one tablet by mouth every 12 hours for 7 days. 1 tab PO BID 7 days 14 tabs 0RF H65.92 - Unspecified nonsuppurative otitis media, left ear Coding Level of Care Code Est Pt Level 4 (55856) Diagnoses Left otitis media with effusion H65.92 Viral upper respiratory tract infection J06.9 URI type: unspecified viral URI
== END 2024-09-21 09:08 | disposition home or self-care (01) ==
PROVIDERS: PCP Internal Medicine; Visit Provider Nurse Practitioner Family
DX: H65.92 Unspecified nonsuppurative otitis media, left ear (principal); J06.9 Acute upper respiratory infection, unspecified; Z13.9 Encounter for screening, unspecified

== ENCOUNTER 2024-09-24 08:24 | Outpatient (AMB) | payer OTHER, SELFPAY ==
--- NOTE | 2024-09-24 08:40 | AM.OFFWIN_ITS ---
Intake Vital Signs 09/24/24 08:42 Weight 211 lb BP 140/98 H Blood Pressure Location Rt brachial Position Sitting Pulse 123 H Pulse Source Pulse Oximeter Temp 98.0 F Temp Source Oral Pulse Oximetry (%) 95 Oxygen Delivery Method Room Air Intake Visit Reasons: EP-headaches, severe cough Intake Note: Patient here for headache and severe cough that started after starting antibiotics on tuesday Patient Tobacco Use Status: Never used Tobacco Allergies Seasonal Allergies Allergy (Mild, Verified 09/24/24 08:43) runny nose, watery eyes Do you need a note to return to daycare/school/sports/work: Yes HPI EP-headaches, severe cough HPI Details This note is constructed using voice recognition software. While every effort has been made to ensure accuracy, entry level financial analyst errors may have been included. The patient is a 53 year old female who presents to the clinic today with increased cough and wheeze. She was last seen in the clinic 09/21/2024 for otitis media, after starting antibiotics she developed increased cough and sputum production, however she has had some improvement in her ear discomfort. She had viral panel obtained at that time which was negative. She denies fever, chills. She is asthmatic, and is using her inhaler, last use was last night. She is using it slightly more than she normally would. She notes wheezing, and mild dyspnea with exertion. [facility] Medical History Hypertension Encounter for routine adult health examination without abnormal findings Toe injury Mixed dyslipidemia Vitamin D deficiency Irritable bowel syndrome with diarrhea Environmental and seasonal allergies Mild intermittent asthma Arthralgia Refusal of blood product Fibromyalgia Morbid obesity due to excess calories Postmenopause Tendinitis of finger of right hand Essential hypertension Dyslipidemia (high LDL; low HDL) Diabetes mellitus with hyperglycemia, without long-term current use of insulin Surgical History Hx of colonoscopy Hx of umbilical hernia repair Hx of section Family History Father No problems noted. Mother No problems noted. 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 Sexual orientation: Straight/Heterosexual Gender identity: Female Cognitive needs: No Hearing needs: No Vision needs: Yes Female Reproductive History Menstrual Age of Menarche: 10 Review of Systems Const All systems reviewed & are unremarkable except as noted in HPI and below Physical Exam Vital Signs: Last Vital Signs Temp 98.0 F 09/24/24 08:42 Pulse 123 H 09/24/24 08:42 BP 140/98 H 09/24/24 08:42 Pulse Ox 95 09/24/24 08:42 Oxygen Delivery Method Room Air 09/24/24 08:42 Const General: cooperative, healthy appearing, comfortable and no acute distress Orientation/consciousness: patient oriented x3 Limitations: no limitations HEENT Head: Yes normal to inspection Ears: hearing grossly normal bilaterally, external ears normal and TM abnormal erythematous on the left and retracted on the right General nose exam: Normal external nose present, Normal nares present and No nasal discharge present Face and sinus: Yes normal facial exam and Yes sinuses nontender Mouth: Normal oral and palatal mucosa present and moist mucous membranes Throat: Yes tonsils normal, Yes uvula midline and Yes posterior oropharynx abnormal (Erythema) Eyes General: appearance normal, both eyes and all related structures Neck Neck: Yes normal visual inspection Resp Effort & Inspection: normal respiratory effort, able to speak in complete sentences, Actively coughing, no respiratory distress, not tachypneic, no tripod positioning and no use of accessory muscles Auscultation: wheezes (throughout, clears with cough) Cardio Jugular venous distension: no JVD Rate: regular rate Rhythm: regular rhythm Heart sounds: S1 normal heart sound present, S2 normal heart sound present, no click, no gallops, no murmurs and no rubs Skin General skin exam: no rashes or lesions noted, elasticity normal and turgor normal Neuro General: patient oriented x3 Extrem General: Yes normal to inspection and Yes no clubbing, cyanosis or edema Assessment & Plan Assessment & Plan (1) Asthma exacerbation: Code(s): J45.901 - Unspecified asthma with (acute) exacerbation Qualifiers: Asthma severity: mild Asthma persistence: intermittent Qualified Code(s): J45.21 - Mild intermittent asthma with (acute) exacerbation Plan: Physical examination reveals resolving otitis media. Additionally she is experiencing an exacerbation of her asthma. Due to the patient being diabetic we elected a short burst of prednisone rather than a longer burst or taper to reduce risk of elevated blood sugars. Advised patient to continue with previously prescribed treatment, increase her albuterol inhaler use as needed, and return for follow up should she develop any worsening dyspnea. Plan See above for full details and plan. Medications: New prednisone 40 mg (2 x 20 mg) PO DAILY 3 days 6 tabs 0RF Coding Level of Care Code Est Pt Level 3 (74008) Diagnoses Mild intermittent asthma with exacerbation J45.21 Asthma severity: mild Asthma persistence: intermittent
[2024-09-24 08:42] VITALS: BP 140/98; PULSE 123; TEMP 36.7; O2SAT 95
== END 2024-09-24 09:10 | disposition home or self-care (01) ==
PROVIDERS: PCP Internal Medicine; Visit Provider Registered Nurse
DX: J45.21 Mild intermittent asthma with (acute) exacerbation (principal)

== ENCOUNTER → 2024-09-24 08:24 | Outpatient (BNVA) | payer OTHER, SELFPAY | PROVIDERS: PCP Internal Medicine; Visit Provider Registered Nurse ==

== ENCOUNTER 2024-10-17 08:02 | Outpatient (AMB) | payer OTHER, SELFPAY ==
[2024-10-17 08:13] VITALS: BP 130/82; PULSE 97; O2SAT 96
--- NOTE | 2024-10-17 08:13 | AM.OFFWIN_ITS ---
Intake Vital Signs 10/17/24 08:13 Weight 209 lb 8 oz BP 130/82 Blood Pressure Location Lt brachial Pulse 97 Pulse Source Pulse Oximeter Pulse Oximetry (%) 96 Oxygen Delivery Method Room Air Intake Visit Reasons: EP sciatic pain on the LT side Intake Note: Patient here for sciatic nerve pain that is radiating down the left leg. Patient Tobacco Use Status: Never used Tobacco Allergies Seasonal Allergies Allergy (Mild, Verified 10/17/24 08:18) runny nose, watery eyes Do you need a note to return to daycare/school/sports/work: No HPI HPI Comments History of Present Illness Details History of Present Illness - The patient is a 53-year-old female pr esenting with sciatica pain. - Pain in the left leg extending from th e low back to the left buttocks, down the left leg, and close to the ankle. - Symptoms include radiating pain from t he low back extending down the left buttock and leg, beginning yesterday. - Pain is aggravated by weight bearing a nd does not respond to [id number] analgesics like Tylenol. - A history of recurrent sciatica and os teoarthritis, with exacerbations linked to physical activity. - Reports of bilateral shoulder muscle s pasms concurrent with sciatica pain. - Essential Hypertension managed with vt dication, although it was not taken on the morning of the visit. - Diabetes Mellitus treatment plan inclu justen Trulicity and Jardiance. - No reported loss of bowel or bladder f unction. Physical Exam General: Cooperative, healthy appearing, comfortable, no acute distress and well developed Orientation: Patient oriented x3 Limitations: limping gait Head: Normal to inspection Ears: Hearing grossly normal bilaterally Nose: Normal external nose present Face and sinus: Normal facial exam Eyes: Appearance normal, both eyes and all related structures Neck: Normal visual inspection and Yes full ROM Respiratory: Normal respiratory effort and able to speak in complete sentences. Skin: No rashes or lesions noted Neuro: Patient oriented x3, limping gait Extremities: trapezius muscles left and right side with spasms. no TTP cervical spine, thoracic spine, lumbar spine, + straight leg test left side [facility] Medical History Hypertension Encounter for routine adult health examination without abnormal findings Toe injury Mixed dyslipidemia Vitamin D deficiency Irritable bowel syndrome with diarrhea Environmental and seasonal allergies Mild intermittent asthma Arthralgia Refusal of blood product Fibromyalgia Morbid obesity due to excess calories Postmenopause Tendinitis of finger of right hand Essential hypertension Dyslipidemia (high LDL; low HDL) Diabetes mellitus with hyperglycemia, without long-term current use of insulin Surgical History Hx of colonoscopy Hx of umbilical hernia repair Hx of section Family History Father No problems noted. Mother No problems noted. 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 Sexual orientation: Straight/Heterosexual Gender identity: Female Cognitive needs: No Hearing needs: No Vision needs: Yes Female Reproductive History Menstrual Age of Menarche: 10 Review of Systems Const All systems reviewed & are unremarkable except as noted in HPI and below Physical Exam Vital Signs: Last Vital Signs Pulse 110 H 10/17/24 08:13 BP 130/82 10/17/24 08:13 Pulse Ox 96 10/17/24 08:13 Oxygen Delivery Method Room Air 10/17/24 08:13 Assessment & Plan Assessment & Plan (1) Sciatica: Code(s): M54.30 - Sciatica, unspecified side Qualifiers: Laterality: left Qualified Code(s): M54.32 - Sciatica, left side Plan: For the sciatica, initiate a six-day steroid taper to reduce inflammation while adhering to a no to low-carb diet to manage potential impacts on blood sugar levels. Ice application on the affected lumbar region is recommended. Prescribe muscle relaxants to address bilateral shoulder spasms and advise against the concurrent use of alcohol and driving. Hold off on rehabilitation exercises until after completing the steroid course. The patient should remain vigilant for any bowel or bladder dysfunction and seek immediate care if such symptoms arise. Continue current antihypertensive and diabetic medications. Suggest [facility] website resources for post-treatment sciatica exercise guidance. Patient was informed and verbally consented to the use of an ambient scribe for clinic note documentation during this visit. (2) Cervical paraspinous muscle spasm: Code(s): M62.838 - Other muscle spasm Plan: as above Medications: New cyclobenzaprine 5 mg PO Q8H PRN 10 tabs 0RF Muscle Spasm methylprednisolone PO PER PKG DIR for 6 days 21 ea 0RF Coding Level of Care Code Est Pt Level 4 (45703) Diagnoses Sciatica of left side M54.32 Laterality: left Cervical paraspinous muscle spasm M62.838
== END 2024-10-17 08:54 | disposition home or self-care (01) ==
PROVIDERS: PCP Internal Medicine; Visit Provider Physician Assistant
DX: M54.32 Sciatica, left side (principal); M62.838 Other muscle spasm

== ENCOUNTER 2025-02-16 08:20 | Outpatient (REF) | payer OTHER, SELFPAY ==
[2025-02-16 11:18] LABS: Estimated Average Glucose 171 mg/dL; Hemoglobin A1C 213.8331 umol/L; Hemoglobin A1c % 7.6 % (<6.0); Total Hemoglobin (HGBA1C) 3574.3959 umol/L
[2025-02-16 11:33] LABS: Alanine Aminotransferase 24 U/L (0-31); Anion Gap 15 (12-20); Blood Urea Nitrogen 9 mg/dL (9-16); Calcium 8.9 mg/dL (8.4-10.2); Carbon Dioxide 27 mmol/L (22-29); Chloride 104 mmol/L (96-108); Cholesterol 142 mg/dL (<200); Estimated Glomerular Filt Rate > 60; Glucose Fasting 163 mg/dL (60-99); HDL Cholesterol 43 mg/dL (>40); LDL Cholesterol Calculated 75 mg/dL (<100); Potassium 4.9 mmol/L (3.3-5.1); Sodium 141 mmol/L (135-145); Triglycerides 123 mg/dL (<150)
[2025-02-16 11:41] LABS: Vitamin D 25-OH Total 31.4 ng/mL (>30)
[2025-02-16 11:52] LABS: Creatinine Urine 345.98 mg/dL
== END 2025-02-16 08:21 | disposition home or self-care (01) ==
LOC: HO.HMGCLDS 08:20
PROVIDERS: PCP Internal Medicine; Visit Provider Internal Medicine
DX: E66.01 Morbid (severe) obesity due to excess calories (principal); E78.2 Mixed hyperlipidemia; E11.65 Type 2 diabetes mellitus with hyperglycemia; Z78.0 Asymptomatic menopausal state; I10 Essential (primary) hypertension
CPT/HCPCS: 36415; 80048; 80061; 82043; 82306; 82570; 83036; 84460

== ENCOUNTER 2025-02-19 10:25 | Outpatient (AMB) | payer OTHER, SELFPAY ==
--- NOTE | 2025-02-19 10:42 | MHC.PC.OV ---
Vital Signs 02/19/25 10:43 Height 5 ft 2 in Weight 207 lb 4 oz BMI 37.9 BP 138/98 H Blood Pressure Location Rt brachial Position Sitting Respiration 20 Pulse 92 Pulse Source Pulse Oximeter Temp 98 F Temp Source Oral Pulse Oximetry (%) 98 Oxygen Delivery Method Room Air Comment Ran out of enalapril for the last 3 days Intake Visit Reasons: follow up labs/medication Intake Note: Pt is here today for her lab f/u/ medication Allergies Seasonal Allergies Allergy (Mild, Verified 02/19/25 11:08) runny nose, watery eyes Medication List - Last Reconciled 02/19/25 by Jayshree Marcos MD albuterol sulfate 2.5 mg (3 mL) inhalation QID PRN albuterol sulfate 90 mcg/actuation 2 puffs PO QID PRN blood sugar diagnostic (FreeStyle Lite Strips) check fasting blood sugar twice a day before a meal blood sugar diagnostic (FreeStyle Lite Strips) Check fasting blood sugar twice a day before meals blood-glucose meter (FreeStyle Lite Meter kit) Fasting glucose twice a day before meals and keep a record cyclobenzaprine 5 mg PO Q8H PRN dulaglutide (Trulicity) 0.75 mg (0.5 mL) subcut QWEEK empagliflozin (Jardiance) 10 mg PO QAM enalapril maleate 10 mg PO DAILY loratadine 10 mg PO DAILY metformin 1,000 mg PO BID rosuvastatin 10 mg PO DAILY Tobacco use date assessed: 02/19/25 Dental Screening Dental Screen Date: 02/19/25 Did you have a dental visit in the last 12 months?: Yes Did you have a dental problem in the last 6 months where you did not have access to dental care?: No Was dental information given to patient?: Patient has dentist HPI follow up labs/medication HPI Details - The patient is a 54-year-old female presenting with medication refills and left shoulder pain management. - Her Type 2 Diabetes Mellitus is being actively managed, though she was out of Trulicity and Jardiance for about two weeks. Considering switching to Mounjaro and stopped Ozempic due to past adverse effects. - For Hypertension, she ran out of Enalapril, leading to increased blood pressure. - The left shoulder pain has been present for over a year without injury. Management efforts via Tylenol, and physical therapy have offered incomplete relief. - Hyperlipidemia has been managed with rosuvastatin, showing significant improvement in cholesterol levels without adverse effects. - Fibromyalgia is contributing to generalized pain symptoms alongside her shoulder-specific discomfort - Diabetes monitoring shows improvement with A1c reducing to 7.6. - Updated lipid panel reflects improvement: total cholesterol reduced to 142 from 239, triglycerides decreased to 123 from 167. - Regular eye exams scheduled; diabetic retinopathy screening planned. [facility] Medical History Left anterior shoulder pain Hypertension Mixed dyslipidemia Vitamin D deficiency Irritable bowel syndrome with diarrhea Environmental and seasonal allergies Mild intermittent asthma Refusal of blood product Fibromyalgia Morbid obesity due to excess calories Postmenopause Tendinitis of finger of right hand Essential hypertension Dyslipidemia (high LDL; low HDL) Diabetes mellitus with hyperglycemia, without long-term current use of insulin Surgical History Hx of colonoscopy Hx of umbilical hernia repair Hx of section Family History Father No problems noted. Mother No problems noted. 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 1. Little interest or pleasure in doing things: not at all 2. Feeling down, depressed, or hopeless: not at all 3. Trouble falling or staying asleep, or sleeping too much: not at all 4. Feeling tired or having little energy: not at all 5. Poor appetite or overeating: not at all 6. Feeling bad about yourself - or that you are a failure or have let yourself or your family down: not at all 7. Trouble concentrating on things, such as reading the newspaper or watching television: not at all 8. Moving or speaking so slowly that other people could have noticed. Or the opposite - being so fidgety or restless that you have been moving around a lot more than usual: not at all 9. Thoughts that you would be better off or of hurting yourself in some way: not at all Total score: 0 Depression Screening Interpretation: Negative Depression Screening Done: Yes 56487 - PHQ-9 Billing: Yes Source: Developed by Drs. Paul Ramirez, Yue Roman, Luis Perry and colleagues, with an educational billy from [employer]. Thrive Questionnaire Date Thrive assessed: 02/18/25 I am a: Patient What is your living situation today?: I have a steady place to live Within the past 12 months, did the food you bought not last and you didn't have the money to get more?: Never true Within the past 12 months, did you worry whether your food would run out before you got money to buy more?: Never true Do you have trouble paying for medicines?: No Do you have trouble getting transportation to medical appointments?: No Do you have trouble paying your heating and electricity bill?: No Do you have trouble taking care of your child, family member or friend?: No Do you have trouble with day-to-day activities such as bathing, preparing meals, shopping, managing finances, etc.?: No Are you currently unemployed and looking for a job?: No Are you interested in more education?: No Please select the resources that you would like help with: None Currently or been in a relationship where the following occur: No concerns reported THRIVE Score: 0 AUDIT C Alcohol Use Questionnaire (AUDIT-C) 1. How often do you have a drink containing alcohol?: Never Total Score: 0 KAMRAN-7 AMB Questionnaire KAMRAN-7 Date KAMRAN - 7 assessed: 02/19/25 Feeling nervous, anxious, or on edge: 0 = Not at all Not being able to stop or control worryin = Not at all Worrying too much about different things: 0 = Not at all Trouble relaxin = Not at all Being so restless that it is hard to sit still: 0 = Not at all Becoming easily annoyed or irritable: 0 = Not at all Feeling afraid as if something awful might happen: 0 = Not at all Total KAMRAN-7 score (0-4 normal; 5-9 mild; 10-14 moderate; 15-21 severe): 0 Source: Developed by Drs. Paul Ramirez, Yue Roman, Luis Perry and colleagues, with an educational billy from [employer]. KAMRAN-7 Assessment Billing KAMRAN-7 Assessment Tool: KAMRAN-7 Assessment 96108 Review of Systems Const All systems reviewed & are unremarkable except as noted in HPI and below Denies fever(s), Denies frequent falls, Denies headache(s), Reports lethargy and Denies weakness Eyes Details: Has appointment for diabetes retinopathy screening at [facility] next month Reports blurry vision ENT Reports dry mouth, Denies headache(s), Denies nasal congestion and Denies sore throat Card Denies chest pain, Denies syncope, Reports rapid heart rate, Denies irregular heart rhythm, Denies leg edema, Denies radiating jaw, neck or arm pain and Denies dyspnea Resp Denies chest congestion, Denies cough, Denies dyspnea and Denies wheezing GI Denies abdominal pain, Denies melena, Denies bloating, Denies hematochezia, Denies change in bowel habits, Denies heartburn, Denies nausea and Denies vomiting Denies hematuria, Denies urinary frequency, Denies difficulty voiding, Denies dysuria and Denies urinary incontinence Musc Denies abnormal gait, Reports arthralgias (Occasional in hips, knees), Reports stiffness and Denies tingling Neuro Denies abnormal gait, Denies syncope, Denies frequent falls, Denies headache(s), Denies Sensory deficit (Neuro), Denies tingling, Denies paresthesias and Denies weakness Psych Reports no additional complaints Endo Reports no additional complaints Kamran/Lymph Reports no additional complaints Aller/Immun Denies wheezing Physical exam (Primary Care) Vital Signs: Last Vital Signs Temp 98 F 02/19/25 10:43 Pulse 92 02/19/25 10:43 Resp 20 02/19/25 10:43 BP 138/98 H 02/19/25 10:43 Pulse Ox 98 02/19/25 10:43 Oxygen Delivery Method Room Air 02/19/25 10:43 BMI result Body Mass Index 37.9 Tobacco/Smoking Status: Tobacco use Status Tobacco use date assessed 02/19/25 02/19/25 10:51 Patient Tobacco Use Status Never used Tobacco 02/19/25 10:51 e-Cigarette/Vaping Use Never Used 02/19/25 10:51 PHQ-9: PHQ-9 Score PHQ-9: Total score 0 02/24/25 20:30 Depression Screening Interpretation: Negative Thrive Assessment: Date of Thrive Assessment Date Thrive assessed 02/18/25 02/19/25 10:51 Currently or been in a relationship where the following occur: No concerns reported Const General: comfortable and no acute distress Nutritional Appearance: obese morbidly obese Orientation/consciousness: patient oriented x3 HENMT Head: Yes normocephalic Ears: external ears normal and TM's normal bilaterally General nose exam: Normal nares present Face and sinus: Yes sinuses nontender Mouth: moist mucous membranes Throat: Yes tonsils normal Eyes Pupils: Equal, round and reactive pupils present EOM: EOMs intact bilaterally Direct Ophthalmoscopy: normal light reflex Neck Neck: Yes full ROM and Yes no lymphadenopathy Resp Effort & Inspection: normal respiratory effort and able to speak in complete sentences Auscultation: clear to auscultation bilaterally, no crackles, no rales, no rhonchi and no wheezes Cardio Heart sounds: S1 normal heart sound present and S2 normal heart sound present GI Inspection: Yes Abdominal panniculus present and Yes obesity Palpation (GI): Soft to palpation, nontender, no guarding and not rigid Percussion: Yes normal to percussion Auscultation: normal bowel sounds Rectal Exam - Female: deferred General: Yes no CVA tenderness and Yes deferred Back/Spine/Pelvis Back: no CVA tenderness Skin General skin exam: no rashes or lesions noted Neuro General: patient oriented x3, gait normal and moves all extremities Cranial nerves: Yes Equal, round and reactive pupils present Motor exam (neuro): 5/5 motor strength present throughout Sensory Exam: No Sensory deficit (Neuro) Extrem General: Yes full ROM and Yes capillary refill normal Psych Speech and movement: Normal speech and movement present Results Reviewed Results Reviewed: Name: Jessica Lo Age/Sex: 54/F : 1970 Unit#: [id number] Attend Dr: Jayshree Marcos MD Re02/16/25 Status: DEP REF Location: [id number] Disch: SPEC : [id number] DAVIS: 02/16/25 STATUS: COMP REQ : [id number] RECD: 02/16/25-[address]: Jayshree Marcos MD COMP: 02/16/25114 ENTERED: 02/16/[address] [facility] [address]: ORDERED: Met Prof Fast, ALT, Lipid Panel, Vitamin D 25-OH Test Result Flag Reference Sodium 141 135-145 mmol/L Potassium 4.9 3.3-5.1 mmol/L CL 104 96-108 mmol/L CO2 27 22-29 mmol/L Gap 15 12-20 BUN 9 9-16 mg/dL Creat 0.71 0.5-1.4 mg/dL eGFR > 60 Chronic Kidney Disease: Estimated GFR < 60 mL/min/1.73m2 Severe Kidney Disease: Estimated GFR < 15 mL/min/1.73m2 FBS 163 H 60-99 mg/dL A fasting glucose of 126 mg/dl or greater on more than one occasion is considered diagnostic of diabetes. CA 8.9 8.4-10.2 mg/dL ALT (GPT) 24 0-31 U/L Triglyceride 123 <150 mg/dL Desirable Triglyceride: less than 150 mg/dL Borderline High Triglyceride 150-199 mg/dL High Triglyceride: 200-499 mg/dL Very High Triglyceride: greater than or equal to 5OO mg/dL Cholesterol 142 <200 mg/dL Desirable Cholesterol: less than 200 mg/dL Borderline High Cholesterol: 200-239 mg/dL High Cholesterol: greater than 239 mg/dL LDL Calculated 75 <100 mg/dL Desirable LDL: less than 100 mg/dL Near Optimal/Above Optimal LDL: 110-129 mg/dL Borderline High LDL: 130-159 mg/dL High LDL: 160-189 mg/dL Very High LDL: greater than or equal to 190 mg/dL HDL 43 >40 mg/dL Desirable HDL: greater than 40 mg/dL Note: This HDL assay may give artificially low results in patients with liver disease. Vitamin D 25-OH 31.4 >30 ng/mL Health Based Reference Values* < 20 ng/mL Deficient 20-30 ng/mL Insufficient > 30 ng/mL Sufficient Laboratory Tests 07/31/24 02/16/25 06:38 08:31 Estimat Average Glucose 235 Hemoglobin A1c % 9.8 H 7.6 H Urine Creatinine 345.98 Urine Microalbumin 28.0 Microalb/Creat Ratio 8.0 Coding Level of Care Code Est Pt Level 4 (05795) Complex EM visit Add On G2211 Diagnoses Primary hypertension I10 Hypertension type: primary hypertension Mixed dyslipidemia E78.2 Type 2 diabetes mellitus with hyperglycemia, without long-term current use of insulin E11.65 Diabetes mellitus type: type 2 Left anterior shoulder pain M25.512 Morbid obesity due to excess calories E66.01 Additional Codes PHQ-9 - 93890 - PHQ-9 Billing: Yes ([id number]) KAMRAN-7 Assessment Billing - KAMRAN-7 Assessment Tool: KAMRAN-7 Assessment 81024 ([id number]) Assessment & Plan Assessment & Plan (1) Hypertension: Code(s): I10 - Essential (primary) hypertension Category: Medical Qualifiers: Hypertension type: primary hypertension Qualified Code(s): I10 - Essential (primary) hypertension Plan: Continue enalapril maleate 10 mg once daily (2) Mixed dyslipidemia: Code(s): E78.2 - Mixed hyperlipidemia Category: Medical Plan: Continue with rosuvastatin 10 mg daily fasting showed normal LDL cholesterol with elevated triglycerides reinforced importance of following diabetic diet, and getting regular exercise (3) Diabetes mellitus with hyperglycemia, without long-term current use of insulin: Comment: NIDDM Code(s): E11.65 - Type 2 diabetes mellitus with hyperglycemia Category: Medical Qualifiers: Diabetes mellitus type: type 2 Qualified Code(s): E11.65 - Type 2 diabetes mellitus with hyperglycemia Plan: Improvement in diabetes control noted now with hemoglobin A1c at 7.6%. Prescription sent for Mounjaro 2.5 mg injected once a week, stopped Trulicity, continue Jardiance 10 mg in the morning and metformin 1000 mg twice a day. (4) Left anterior shoulder pain: Code(s): M25.512 - Pain in left shoulder Category: Medical Plan: No improvement with physical therapy and conservative measures, will refer to orthopedics for further evaluation management (5) Morbid obesity due to excess calories: Code(s): E66.01 - Morbid (severe) obesity due to excess calories Category: Medical Plan: Discontinue Trulicity and switched to Mounjaro 2.5 mg injected once a week. Reinforced importance of combining this with adherence to healthy eating habits and getting regular exercise. Discussed possible side effects of medication and follow up her use Orders: Orders Alanine Aminotransferase 05/04/25 E11.65 - Type 2 diabetes mellitus with hyperglycemia, E66.01 - Morbid (severe) obesity due to excess calories, E78.2 - Mixed hyperlipidemia, I10 - Essential (primary) hypertension Aspartate Amino Transferase 05/04/25 E11.65 - Type 2 diabetes mellitus with hyperglycemia, E66.01 - Morbid (severe) obesity due to excess calories, E78.2 - Mixed hyperlipidemia, I10 - Essential (primary) hypertension Hemoglobin A1c 05/04/25 E11.65 - Type 2 diabetes mellitus with hyperglycemia, E66.01 - Morbid (severe) obesity due to excess calories, E78.2 - Mixed hyperlipidemia, I10 - Essential (primary) hypertension Lipid Panel 05/04/25 E11.65 - Type 2 diabetes mellitus with hyperglycemia, E66.01 - Morbid (severe) obesity due to excess calories, E78.2 - Mixed hyperlipidemia, I10 - Essential (primary) hypertension Basic Metabolic Panel Fasting 05/04/25 E11.65 - Type 2 diabetes mellitus with hyperglycemia, E66.01 - Morbid (severe) obesity due to excess calories, E78.2 - Mixed hyperlipidemia, I10 - Essential (primary) hypertension Referrals Orthopedics Referral M25.512 - Pain in left shoulder Medications: New Mounjaro (tirzepatide) for 4 weeks 2.5 mg (0.5 mL) subcut QWEEK 2 mL 5RF 30 days NS E11.65 - Type 2 diabetes mellitus with hyperglycemia, E78.2 - Mixed hyperlipidemia, I10 - Essential (primary) hypertension Changed From empagliflozin (Jardiance) Take in a.m. 1 hour before breakfast with a glass of water. Do not mix with other medications 10 mg PO QAM 30 tabs 4RF E11.65 - Type 2 diabetes mellitus with hyperglycemia To Jardiance (empagliflozin) Take in a.m. 1 hour before breakfast with a glass of water. Do not mix with other medications 10 mg PO QAM 90 tabs 4RF NS E11.65 - Type 2 diabetes mellitus with hyperglycemia Refilled rosuvastatin 10 mg PO DAILY 90 tabs 2RF enalapril maleate 10 mg PO DAILY 90 tabs 4RF I10 - Essential (primary) hypertension Discontinued dulaglutide (Trulicity) Discontinued Reason: Doctor's Order 0.75 mg (0.5 mL) subcut QWEEK 2 mL 2RF E11.65 - Type 2 diabetes mellitus with hyperglycemia
[2025-02-19 10:43] VITALS: BP 138/98; PULSE 92; RESP 20; TEMP 36.6; O2SAT 98; BMI 37.9
== END 2025-02-19 11:23 | disposition home or self-care (01) ==
LOC: HO.HMCC 10:26
PROVIDERS: PCP Internal Medicine; Visit Provider Internal Medicine
DX: I10 Essential (primary) hypertension (principal); E11.65 Type 2 diabetes mellitus with hyperglycemia; E66.01 Morbid (severe) obesity due to excess calories; Z68.37 Body mass index [BMI] 37.0-37.9, adult; E78.2 Mixed hyperlipidemia; M25.512 Pain in left shoulder

== ENCOUNTER → 2025-02-19 10:25 | Outpatient (BNVA) | payer OTHER, SELFPAY | PROVIDERS: PCP Internal Medicine; Visit Provider Internal Medicine | DX: M25.512 Pain in left shoulder (principal); E11.9 Type 2 diabetes mellitus without complications; I10 Essential (primary) hypertension; M79.7 Fibromyalgia; E78.2 Mixed hyperlipidemia; E11.65 Type 2 diabetes mellitus with hyperglycemia; E66.01 Morbid (severe) obesity due to excess calories; Z68.37 Body mass index [BMI] 37.0-37.9, adult; Z79.899 Other long term (current) drug therapy | CPT/HCPCS: 96127 ==

== ENCOUNTER 2025-04-09 07:36 | Outpatient (AMB) | payer OTHER, SELFPAY ==
[2025-04-09 07:48] VITALS: BMI 37.9
--- NOTE | 2025-04-09 07:48 | MHC.OFFVIS ---
Vital Signs 04/09/25 07:48 Height 5 ft 2 in Weight 207 lb BMI 37.9 Intake Visit Reasons: Left shoulder pain and weakness Intake Note: Jessica is a 54 year old right hand dominant female who presents with complaints of progressively worsening left shoulder pain and weakness. The patient describes her pain as sharp in nature. The patient states that she did fall onto her left shoulder several years ago while in [place]. Since that time she has had difficulty lifting her left hand above shoulder height. She has had cortisone injections in the past. The most recent injection gave her minimal relief. She has failed the last 6 weeks of conservative treatment which has included Tylenol, anti-inflammatory medicines, physical therapy, a home exercise program and massage therapy. The patient reports difficulty lifting her left hand above shoulder height. Allergies Seasonal Allergies Allergy (Mild, Verified 04/09/25 07:50) runny nose, watery eyes Medication List - Last Reconciled 04/09/25 by Deacon Suresh MD albuterol sulfate 2.5 mg (3 mL) inhalation QID PRN albuterol sulfate 90 mcg/actuation 2 puffs PO QID PRN blood sugar diagnostic (FreeStyle Lite Strips) check fasting blood sugar twice a day before a meal blood sugar diagnostic (FreeStyle Lite Strips) Check fasting blood sugar twice a day before meals blood-glucose meter (FreeStyle Lite Meter kit) Fasting glucose twice a day before meals and keep a record cyclobenzaprine 5 mg PO Q8H PRN enalapril maleate 10 mg PO DAILY Jardiance (empagliflozin) 10 mg PO QAM NS loratadine 10 mg PO DAILY metformin 1,000 mg PO BID Mounjaro (tirzepatide) 2.5 mg (0.5 mL) subcut QWEEK 30 days NS rosuvastatin 10 mg PO DAILY PFSH Medical History Left anterior shoulder pain Hypertension Mixed dyslipidemia Vitamin D deficiency Irritable bowel syndrome with diarrhea Environmental and seasonal allergies Mild intermittent asthma Refusal of blood product Fibromyalgia Morbid obesity due to excess calories Postmenopause Tendinitis of finger of right hand Essential hypertension Dyslipidemia (high LDL; low HDL) Diabetes mellitus with hyperglycemia, without long-term current use of insulin Surgical History Hx of colonoscopy Hx of umbilical hernia repair Hx of section Family History Father No problems noted. Mother No problems noted. 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 Sexual orientation: Straight/Heterosexual Gender identity: Female Cognitive needs: No Hearing needs: No Vision needs: Yes Female Reproductive History Menstrual Age of Menarche: 10 Physical Exam Vital Signs: BMI result Body Mass Index 37.9 Const Other: Well-nourished well-developed very friendly female awake alert and oriented x3 in no acute distress Extrem Other: Bilateral upper extremity examination shows good capillary refill, no skin lesions noted, normal sensation light touch ] Left shoulder examination shows decreased range of motion when compared to her right shoulder, 4+ out of 5 strength with supraspinatus testing, positive impingement signs, tenderness over her acromioclavicular joint, no instability Results Reviewed Results Reviewed: X-rays of the patient's left shoulder taken today show severe acromioclavicular joint narrowing, a type 2 acromion, no acute bony abnormalities Assessment & Plan Assessment & Plan (1) Rotator cuff insufficiency of left shoulder: Code(s): M25.312 - Other instability, left shoulder Category: Medical Plan Ms. Lo presents with left shoulder pain and weakness due to impingement syndrome and possible rotator cuff tearing. Thus, I will send the patient for an MRI of her left shoulder for further evaluation. I will see her back once the MRI is completed to discuss the findings and treatment options. She will continue with her range motion exercises in the meantime. Feel free to call me at any time should questions regarding her orthopedic management arise. Thank you very much for asking me to see this very friendly patient. I spent 20 minutes in reviewing the patient's records and imaging studies, seeing the patient and documenting in the medical record. Orders: Orders XR shoulder LT min 2V Today M25.512 - Pain in left shoulder MR shoulder LT wo con 04/10/25 M25.312 - Other instability, left shoulder Coding Level of Care Code New Pt Level 3 (42572) Complex EM visit Add On G2211 Diagnoses Rotator cuff insufficiency of left shoulder M25.312
== END 2025-04-09 08:02 | disposition home or self-care (01) ==
LOC: HO.HOS 07:37
PROVIDERS: PCP Internal Medicine; Visit Provider Orthopaedic Surgery
DX: M25.312 Other instability, left shoulder (principal)
CPT/HCPCS: 99203

== ENCOUNTER → 2025-04-09 07:42 | Outpatient (BNV) | payer OTHER, SELFPAY | PROVIDERS: Visit Provider Radiology Diagnostic Radiology | DX: M25.512 Pain in left shoulder (principal) | CPT/HCPCS: 73030 ==

== ENCOUNTER 2025-04-09 10:52 | Outpatient (REF) | payer OTHER, SELFPAY ==
--- NOTE | ~2025-04-09 | XR_ITS ---
EXAMINATION: XR SHOULDER, LEFT CLINICAL INFORMATION: M25.512 - Pain in left shoulder COMPARISON: None available. TECHNIQUE: AP and Y-view projections of the left shoulder. FINDINGS: No acute cortical disruption or malalignment. No lytic or blastic lesions. Subchondral cyst formation in the greater tuberosity of the humerus and likely the glenoid fossa of the scapula. XR/XR shoulder LT min 2V IMPRESSION: Degenerative changes, mild, without acute fracture or dislocation. Electronically signed by: Arie Duarte MD 04/09/2025 07:51 AM EDT
== END 2025-04-09 10:53 | disposition home or self-care (01) ==
LOC: HO.HOSX 10:52
PROVIDERS: Visit Provider Orthopaedic Surgery
DX: M24.112 Other articular cartilage disorders, left shoulder (principal); M25.312 Other instability, left shoulder
CPT/HCPCS: 73030

== ENCOUNTER 2025-04-20 18:23 | Outpatient (REF) | payer OTHER, SELFPAY ==
--- NOTE | ~2025-04-20 | MR_ITS ---
CLINICAL HISTORY: M25.312 - Other instability, left shoulder MR of the left shoulder without contrast. No prior MR. Findings: There is prominent infraspinatus and supraspinatus tendinopathy. There is an intrasubstance tear at the insertion of the supraspinatus tendon measuring a maximum of 6 mm. There is associated peritendinous edema. The subscapularis tendon is intact. There are severe atrophy of the teres minor muscle. The biceps tendon is intact. There moderate proximal biceps tendinopathy. There is mild posterior subluxation of the humeral head. No significant glenohumeral DJD is seen. There is a trace amount of fluid in the joint. No definite labral tear is identified. There is cystic change with ill-defined marrow edema in the lateral aspect of the humeral head may relate to rotator cuff disease. There is mild acromioclavicular DJD. Impression: Prominent infraspinatus and supraspinatus tendinopathy. Intrasubstance tear at the insertion of the supraspinatus tendon. Severe atrophy of the teres minor muscle. Moderate proximal biceps tendinopathy. Mild posterior subluxation of the humeral head. Mild acromioclavicular DJD. This document has been electronically signed by: Rick Spencer MD on 04/24/2025 18:10:55
== END 2025-04-20 18:24 | disposition home or self-care (01) ==
LOC: HO.MRI 18:23
PROVIDERS: PCP Internal Medicine; Visit Provider Orthopaedic Surgery
DX: M25.312 Other instability, left shoulder (principal)
CPT/HCPCS: 73221

== ENCOUNTER → 2025-04-20 18:27 | Outpatient (BNV) | payer OTHER, SELFPAY | PROVIDERS: PCP Internal Medicine; Visit Provider Radiology Diagnostic Radiology | DX: M25.512 Pain in left shoulder (principal); S46.012A Strain of muscle(s) and tendon(s) of the rotator cuff of left shoulder, initial encounter; M62.512 Muscle wasting and atrophy, not elsewhere classified, left shoulder; M75.22 Bicipital tendinitis, left shoulder | CPT/HCPCS: 73221 ==

== ENCOUNTER 2025-05-08 08:12 | Outpatient (AMB) | payer OTHER, SELFPAY ==
--- NOTE | 2025-05-08 08:16 | A.OFFVIS_ITS ---
Vital Signs 05/08/25 08:17 Height 5 ft 2 in Weight 207 lb BMI 37.9 BP 114/86 Blood Pressure Location Lt brachial Position Sitting Pulse 94 Pulse Source Pulse Oximeter Pulse Oximetry (%) 97 Oxygen Delivery Method Room Air Intake Visit Reasons: OV-MRI Shoulder LT review Intake Note: Jessica is a 54 year old female who presents with complaints of left shoulder pain. She describes her pain as sharp in nature. Most of the pain is along the lateral aspect of her shoulder. She did have a cortisone injection given into her left shoulder in the past which gave her fairly good relief. She wishes to hold off on surgery for now. She has tried Tylenol and anti-inflammatory medicines which gave her mild relief. Allergies Seasonal Allergies Allergy (Mild, Verified 05/08/25 08:17) runny nose, watery eyes Medication List - Last Reconciled 05/08/25 by Deacon Suresh MD albuterol sulfate 2.5 mg (3 mL) inhalation QID PRN albuterol sulfate 90 mcg/actuation 2 puffs PO QID PRN blood sugar diagnostic (FreeStyle Lite Strips) check fasting blood sugar twice a day before a meal blood sugar diagnostic (FreeStyle Lite Strips) Check fasting blood sugar twice a day before meals blood-glucose meter (FreeStyle Lite Meter kit) Fasting glucose twice a day before meals and keep a record cyclobenzaprine 5 mg PO Q8H PRN enalapril maleate 10 mg PO DAILY Jardiance (empagliflozin) 10 mg PO QAM NS loratadine 10 mg PO DAILY metformin 1,000 mg PO BID Mounjaro (tirzepatide) 2.5 mg (0.5 mL) subcut QWEEK 30 days NS rosuvastatin 10 mg PO DAILY PFSH Medical History Left anterior shoulder pain Hypertension Mixed dyslipidemia Vitamin D deficiency Irritable bowel syndrome with diarrhea Environmental and seasonal allergies Mild intermittent asthma Refusal of blood product Fibromyalgia Morbid obesity due to excess calories Postmenopause Tendinitis of finger of right hand Essential hypertension Dyslipidemia (high LDL; low HDL) Diabetes mellitus with hyperglycemia, without long-term current use of insulin Surgical History Hx of colonoscopy Hx of umbilical hernia repair Hx of section Family History Father No problems noted. Mother No problems noted. 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 Sexual orientation: Straight/Heterosexual Gender identity: Female Cognitive needs: No Hearing needs: No Vision needs: Yes Female Reproductive History Menstrual Age of Menarche: 10 Physical Exam Vital Signs: Last Vital Signs Pulse 94 05/08/25 08:17 BP 114/86 05/08/25 08:17 Pulse Ox 97 05/08/25 08:17 Oxygen Delivery Method Room Air 05/08/25 08:17 BMI result Body Mass Index 37.9 Const Other: Well-nourished well-developed very friendly female awake alert and oriented x3 in no acute distress Extrem Other: Left shoulder examination shows decreased range of motion when compared to her right shoulder, positive impingement signs, 4+ out of 5 strength with supraspinatus testing, no instability Office Procedures AMB Joint Injection/Aspiration Joint Injection/Aspiration Primary Site: left shoulder Prep: site was prepped using aseptic technique Injected: 40 mg of, DepoMedrol and 1% plain lidocaine Procedure: The patient tolerated the procedure well Coding 86388 - Large joint Procedure code (CPT) selection complete Results Reviewed Results Reviewed: MRI of the patient's left shoulder show severe acromioclavicular joint narrowing, a type 2 acromion, signal change within the supraspinatus tendon most likely due to adhesive capsulitis, no full-thickness tear noted Assessment & Plan Assessment & Plan (1) Impingement syndrome of left shoulder: Code(s): M75.42 - Impingement syndrome of left shoulder Category: Medical Plan Ms. Lo presents with left shoulder pain and stiffness due to impingement syndrome, acromioclavicular joint arthritis and adhesive capsulitis. The risks and benefits of a left shoulder cortisone injection were discussed at length with the patient. The patient wished to proceed. She tolerated the injection well. I also gave her a prescription to go to formal physical therapy. She will contact me prior to her follow-up appointment in 3 months should any questions or concerns arise. Feel free to call me at any time should questions regarding her orthopedic management arise. I spent 21 minutes in reviewing the patient's records and imaging studies, seeing the patient and documenting in the medical record. Orders: Orders PT Evaluation and Treatment Today M75.42 - Impingement syndrome of left shoulder AMB Joint Injection/Aspiration Today M75.42 - Impingement syndrome of left shoulder Coding Level of Care Code Est Pt Level 3 (38245) Complex EM visit Add On G2211 Diagnoses Impingement syndrome of left shoulder M75.42 CPT Codes Coding - 51673 Large joint: 36532 - Large joint ([id number])
[2025-05-08 08:17] VITALS: BP 114/86; PULSE 94; O2SAT 97; BMI 37.9
== END 2025-05-08 08:49 | disposition home or self-care (01) ==
LOC: HO.HOS 08:12
PROVIDERS: PCP Internal Medicine; Visit Provider Orthopaedic Surgery
DX: M75.42 Impingement syndrome of left shoulder (principal)
CPT/HCPCS: 20610; 99213

== ENCOUNTER → 2025-05-08 08:12 | Outpatient (BNVA) | payer OTHER, SELFPAY | PROVIDERS: PCP Internal Medicine; Visit Provider Orthopaedic Surgery | DX: M75.42 Impingement syndrome of left shoulder (principal) | CPT/HCPCS: 20610; J1010; J2003 ==

== ENCOUNTER 2025-05-18 08:17 | Outpatient (REF) | payer OTHER, SELFPAY ==
[2025-05-18 11:48] LABS: Hemoglobin A1C 174.1064 umol/L; Total Hemoglobin (HGBA1C) 3504.2519 umol/L
[2025-05-18 12:06] LABS: Alanine Aminotransferase 18 U/L (0-31); Anion Gap 14 (12-20); Aspartate Amino Transferase 23 U/L (5-31); Blood Urea Nitrogen 12 mg/dL (9-16); Calcium 9.0 mg/dL (8.4-10.2); Carbon Dioxide 28 mmol/L (22-29); Chloride 104 mmol/L (96-108); Cholesterol 132 mg/dL (<200); Estimated Glomerular Filt Rate > 60; HDL Cholesterol 48 mg/dL (>40); Potassium 5.1 mmol/L (3.3-5.1); Sodium 141 mmol/L (135-145); Triglycerides 86 mg/dL (<150)
== END 2025-05-18 08:18 | disposition home or self-care (01) ==
LOC: HO.HMGCLDS 08:17
PROVIDERS: PCP Internal Medicine; Visit Provider Internal Medicine
DX: E11.65 Type 2 diabetes mellitus with hyperglycemia (principal); E78.2 Mixed hyperlipidemia; E66.01 Morbid (severe) obesity due to excess calories; I10 Essential (primary) hypertension
CPT/HCPCS: 36415; 80048; 80061; 83036; 84450; 84460

== ENCOUNTER 2025-05-23 07:26 | Outpatient (AMB) | payer OTHER, SELFPAY ==
[2025-05-23 08:01] VITALS: BP 100/70; PULSE 100; TEMP 36.6; O2SAT 97; BMI 36.8
--- NOTE | 2025-05-23 08:01 | A.OFFPC_ITS ---
Vital Signs 05/23/25 08:01 Height 5 ft 2 in Weight 201 lb BMI 36.8 BP 100/70 Blood Pressure Location Rt brachial Position Sitting Pulse 100 Pulse Source Pulse Oximeter Temp 97.9 F Temp Source Oral Pulse Oximetry (%) 97 Oxygen Delivery Method Room Air Intake Visit Reasons: 3 months f/up Intake Note: Pt is here today for her 3mo. f/u Allergies Seasonal Allergies Allergy (Mild, Verified 05/23/25 08:03) runny nose, watery eyes Medication List - Last Reconciled 05/23/25 by Jayshree Marcos MD albuterol sulfate 2.5 mg (3 mL) inhalation QID PRN albuterol sulfate 90 mcg/actuation 2 puffs PO QID PRN blood sugar diagnostic (FreeStyle Lite Strips) check fasting blood sugar twice a day before a meal blood sugar diagnostic (FreeStyle Lite Strips) Check fasting blood sugar twice a day before meals blood-glucose meter (FreeStyle Lite Meter kit) Fasting glucose twice a day before meals and keep a record enalapril maleate 10 mg PO DAILY Jardiance (empagliflozin) 10 mg PO QAM NS loratadine 10 mg PO DAILY metformin 1,000 mg PO BID Mounjaro (tirzepatide) 2.5 mg (0.5 mL) subcut QWEEK 30 days NS rosuvastatin 10 mg PO DAILY Tobacco use date assessed: 05/23/25 Dental Screening Dental Screen Date: 05/23/25 Did you have a dental visit in the last 12 months?: Yes Did you have a dental problem in the last 6 months where you did not have access to dental care?: No Was dental information given to patient?: Patient has dentist HPI 3 months f/up HPI Details - The patient is a 54-year-old female pr esenting for follow-up o n her Type 2 Diabetes Mellitus, hyperlipidemia, hypertension - Type 2 Diabetes Mellitus: The patient was started on Mounjaro last visit, and continues to take metformin, and Jardiance, with significant improvement in her HbA1c from 7.6% to 6.7% over three months. - She sometimes forgets to take her second dose of metformin, however but has been compliant with her diet and has been starting to exercise regularly. Tolerating all her medications well with no side effects reported. - Hyperlipidemia: The patient's choleste rol levels have improved significantly, and she is currently on a 10 mg rosuvastatin with no adverse effects reported - Hypertension: The patient's blood pres sure is well-controlled, currently on enalapril 10 mg daily - has left shoulder tendinopathy noted o n shoulder MRI , started physical therapy, which is helping, although she experiences soreness and pain especially at night, would like to see if she can get a prescription for a muscle relaxant. Has been taking Tylenol PM which affords only temporary relief. She is performing exercises at home as recommended by her physical therapist. -recently seen at [facility] for her diabetes retinopathy screening, which came back negative. [facility] Medical History (Updated 05/23/25 @ 08:42 by Jayshree Marcos MD) Tendinopathy of left shoulder Left anterior shoulder pain Hypertension Mixed dyslipidemia Vitamin D deficiency Irritable bowel syndrome with diarrhea Environmental and seasonal allergies Mild intermittent asthma Refusal of blood product Fibromyalgia Morbid obesity due to excess calories Postmenopause Tendinitis of finger of right hand Essential hypertension Dyslipidemia (high LDL; low HDL) Diabetes mellitus with hyperglycemia, without long-term current use of insulin Surgical History Hx of colonoscopy Hx of umbilical hernia repair Hx of section Family History Father No problems noted. Mother No problems noted. 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 Sexual orientation: Straight/Heterosexual Gender identity: Female Cognitive needs: No Hearing needs: No Vision needs: Yes Female Reproductive History Menstrual Age of Menarche: 10 Questionnaire Thrive Questionnaire Date Thrive assessed: 02/18/25 I am a: Patient What is your living situation today?: I have a steady place to live Within the past 12 months, did the food you bought not last and you didn't have the money to get more?: Never true Within the past 12 months, did you worry whether your food would run out before you got money to buy more?: Never true Do you have trouble paying for medicines?: No Do you have trouble getting transportation to medical appointments?: No Do you have trouble paying your heating and electricity bill?: No Do you have trouble taking care of your child, family member or friend?: No Do you have trouble with day-to-day activities such as bathing, preparing meals, shopping, managing finances, etc.?: No Are you currently unemployed and looking for a job?: No Are you interested in more education?: No Please select the resources that you would like help with: None Currently or been in a relationship where the following occur: No concerns reported THRIVE Score: 0 AUDIT C Alcohol Use Questionnaire (AUDIT-C) 2. How many drinks containing alcohol do you have on a typical day when you are drinking?: 1 or 2 3. How often do you have six or more drinks on one occasion?: Never Total Score: 0 KAMRAN-7 AMB Questionnaire KAMRAN-7 Date KAMRAN - 7 assessed: 02/19/25 Source: Developed by Drs. Paul Ramirez, Yue Roman, Luis Perry and colleagues, with an educational billy from [employer]. Review of Systems Const Denies fever(s), Denies frequent falls, Denies headache(s), Reports lethargy, Denies weakness and Reports weight loss Eyes Details: Currently being followed at [facility] and gets eye exam yearly, last 1 done in February showed no retinopathy Reports blurry vision and Reports requires corrective lenses ENT Denies dizziness, Denies headache(s), Denies nasal congestion and Denies sore throat Card Denies chest pain, Denies syncope, Denies irregular heart rhythm, Denies leg edema, Denies radiating jaw, neck or arm pain and Denies dyspnea Resp Denies chest congestion, Denies cough, Denies dyspnea and Denies wheezing GI Denies abdominal pain, Denies melena, Denies bloating, Denies hematochezia, Denies change in bowel habits, Denies heartburn, Denies nausea and Denies vomiting Denies hematuria, Denies urinary frequency, Denies difficulty voiding, Denies dysuria and Denies urinary incontinence Musc Reports as per HPI, Denies abnormal gait, Reports arthralgias (Occasional in hips, knees), Reports stiffness and Denies tingling Skin/Breast Denies rash Neuro Denies abnormal gait, Denies dizziness, Denies syncope, Denies frequent falls, Denies headache(s), Denies Sensory deficit (Neuro), Denies tingling, Denies paresthesias and Denies weakness Psych Reports no additional complaints Endo Reports no additional complaints Kamran/Lymph Reports no additional complaints Aller/Immun Denies wheezing Physical exam (Primary Care) Vital Signs: Last Vital Signs Temp 97.9 F 05/23/25 08:01 Pulse 100 05/23/25 08:01 BP 100/70 05/23/25 08:01 Pulse Ox 97 05/23/25 08:01 Oxygen Delivery Method Room Air 05/23/25 08:01 BMI result Body Mass Index 36.8 Tobacco/Smoking Status: Tobacco use Status Tobacco use date assessed 05/23/25 05/23/25 08:07 Patient Tobacco Use Status Never used Tobacco 05/23/25 08:02 e-Cigarette/Vaping Use Never Used 05/23/25 08:02 Thrive Assessment: Date of Thrive Assessment Date Thrive assessed 02/18/25 05/23/25 08:02 Currently or been in a relationship where the following occur: No concerns reported Const General: comfortable and no acute distress Nutritional Appearance: obese Orientation/consciousness: patient oriented x3 HENMT Head: Yes normocephalic Ears: external ears normal General nose exam: Normal nares present Mouth: moist mucous membranes Eyes Pupils: Equal, round and reactive pupils present EOM: EOMs intact bilaterally Direct Ophthalmoscopy: normal light reflex Neck Neck: Yes full ROM and Yes no lymphadenopathy Resp Effort & Inspection: normal respiratory effort and able to speak in complete sentences Auscultation: clear to auscultation bilaterally, no crackles, no rales, no rhonchi and no wheezes Cardio Heart sounds: S1 normal heart sound present and S2 normal heart sound present GI Palpation (GI): Soft to palpation, nontender and no guarding Auscultation: normal bowel sounds Rectal Exam - Female: deferred Neuro General: patient oriented x3, gait normal and moves all extremities Cranial nerves: Yes Equal, round and reactive pupils present Motor exam (neuro): 5/5 motor strength present throughout Sensory Exam: No Sensory deficit (Neuro) Extrem General: Yes full ROM and Yes capillary refill normal Results Reviewed Results Reviewed: Name: Jessica Lo Age/Sex: 54/F : 1970 Unit#: [id number] Attend Dr: Jayshree Marcos MD Re05/18/25 Status: DEP REF Location: [facility] Disch: SPEC : [id number] DAVIS: 05/18/25 STATUS: COMP REQ : [id number] RECD: 05/18/25-[address]: Jayshree Marcos MD COMP: 05/18/25-1205 ENTERED: 05/18/[address]: ORDERED: Met Prof Fast, AST, ALT, Lipid Panel Test Result Flag Reference Sodium 141 135-145 mmol/L Potassium 5.1 3.3-5.1 mmol/L CL 104 96-108 mmol/L CO2 28 22-29 mmol/L Gap 14 12-20 BUN 12 9-16 mg/dL Creat 0.86 0.5-1.4 mg/dL eGFR > 60 Chronic Kidney Disease: Estimated GFR < 60 mL/min/1.73m2 Severe Kidney Disease: Estimated GFR < 15 mL/min/1.73m2 FBS 138 H 60-99 mg/dL A fasting glucose of 126 mg/dl or greater on more than one occasion is considered diagnostic of diabetes. CA 9.0 8.4-10.2 mg/dL AST (GOT) 23 5-31 U/L ALT (GPT) 18 0-31 U/L Triglyceride 86 <150 mg/dL Desirable Triglyceride: less than 150 mg/dL Borderline High Triglyceride 150-199 mg/dL High Triglyceride: 200-499 mg/dL Very High Triglyceride: greater than or equal to 5OO mg/dL Cholesterol 132 <200 mg/dL Desirable Cholesterol: less than 200 mg/dL Borderline High Cholesterol: 200-239 mg/dL High Cholesterol: greater than 239 mg/dL LDL Calculated 67 <100 mg/dL Desirable LDL: less than 100 mg/dL Near Optimal/Above Optimal LDL: 110-129 mg/dL Borderline High LDL: 130-159 mg/dL High LDL: 160-189 mg/dL Very High LDL: greater than or equal to 190 mg/dL HDL 48 >40 mg/dL Desirable HDL: greater than 40 mg/dL Note: This HDL assay may give artificially low results in patients with liver disease. Coding Level of Care Code Est Pt Level 4 (79143) Complex EM visit Add On G2211 Diagnoses Type 2 diabetes mellitus with hyperglycemia, without long-term current use of insulin E11.65 Diabetes mellitus type: type 2 Tendinopathy of left shoulder M67.912 Primary hypertension I10 Hypertension type: primary hypertension Mixed dyslipidemia E78.2 Assessment & Plan Assessment & Plan (1) Diabetes mellitus with hyperglycemia, without long-term current use of insulin: Comment: NIDDM Code(s): E11.65 - Type 2 diabetes mellitus with hyperglycemia Category: Medical Qualifiers: Diabetes mellitus type: type 2 Qualified Code(s): E11.65 - Type 2 diabetes mellitus with hyperglycemia (2) Tendinopathy of left shoulder: Code(s): M67.912 - Unspecified disorder of synovium and tendon, left shoulder Category: Medical (3) Hypertension: Code(s): I10 - Essential (primary) hypertension Category: Medical Qualifiers: Hypertension type: primary hypertension Qualified Code(s): I10 - Essential (primary) hypertension (4) Mixed dyslipidemia: Code(s): E78.2 - Mixed hyperlipidemia Category: Medical Plan Plan Patient was informed and verbally consented to the use of an ambient scribe for clinic note documentation during this visit. 1. Type 2 diabetes mellitus without complications E11.9 HCC 19 The patient will continue with Mounjaro, metformin, and Jardiance to manage her diabetes, with an increase in Mounjaro dosage to enhance weight loss and glucose control. She is advised to maintain adherence to her medication regimen, particularly ensuring the second dose of metformin is taken consistently. 2. Hyperlipidemia, unspecified E78.5 The patient will continue her current cholesterol medication regimen, which has shown significant improvement in her lipid profile. 3. Hypertension The patient's blood pressure is well-controlled, and no changes to her current antihypertensive regimen are necessary at this time. 4. Unspecified disorder of synovium and tendon, left shoulder M67.912 The patient will continue physical therapy to address her shoulder tendinopathy, focusing on exercises to improve mobility and reduce pain. A muscle relaxant, tizanidine, will be prescribed to aid in pain management and improve sleep quality. 5. Preventative Care The patient is advised to receive her influenza vaccination in May or June and has already received pneumococcal, tetanus, and shingles vaccinations. During the visit, we discussed the management of the patient's Type 2 Diabetes Mellitus, including the continuation and adjustment of her current medication regimen to improve glucose control and promote weight loss. We also reviewed her hyperlipidemia and hypertension management, noting significant improvements. The patient was advised to continue physical therapy for her tendinopathy and frozen shoulder, with the addition of a muscle relaxant to aid in pain management. Preventative care measures, including vaccinations, were also discussed, emphasizing the importance of receiving the influenza vaccine in the upcoming months. Orders: Orders Hemoglobin A1c 07/27/25 E11.65 - Type 2 diabetes mellitus with hyperglycemia, Z78.0 - Asymptomatic menopausal state Alanine Aminotransferase 07/27/25 E11.65 - Type 2 diabetes mellitus with hyperglycemia, Z78.0 - Asymptomatic menopausal state Aspartate Amino Transferase 07/27/25 E11.65 - Type 2 diabetes mellitus with hyperglycemia, Z78.0 - Asymptomatic menopausal state Vitamin D 25-OH Total 07/27/25 E11.65 - Type 2 diabetes mellitus with hyperglycemia, Z78.0 - Asymptomatic menopausal state Medications: New tizanidine 4 mg PO BEDTIME PRN 20 tabs 0RF left shoulder tendinopathy Changed From Mounjaro (tirzepatide) for 4 weeks 2.5 mg (0.5 mL) subcut QWEEK 30 days 2 mL 5RF NS E11.65 - Type 2 diabetes mellitus with hyperglycemia, E78.2 - Mixed hyperlipidemia, I10 - Essential (primary) hypertension To tirzepatide for 4 weeks 5 mg (0.5 mL) subcut QWEEK 2.5 mL 5RF 30 days E11.65 - Type 2 diabetes mellitus with hyperglycemia, E78.2 - Mixed hyperlipidemia, I10 - Essential (primary) hypertension
== END 2025-05-23 08:38 | disposition home or self-care (01) ==
LOC: HO.HMCC 07:26
PROVIDERS: PCP Internal Medicine; Visit Provider Internal Medicine
DX: E11.65 Type 2 diabetes mellitus with hyperglycemia (principal); M67.912 Unspecified disorder of synovium and tendon, left shoulder; I10 Essential (primary) hypertension

== ENCOUNTER 2025-07-09 08:04 | Outpatient (REF) | payer OTHER, SELFPAY ==
[2025-07-09 12:09] LABS: Chlamydia pneumoniae PCR Not Detected (Not Detect.); Coronavirus 229E PCR Not Detected (Not Detect.); Coronavirus HKU1 PCR Not Detected (Not Detect.); Coronavirus NL63 PCR Not Detected (Not Detect.); Coronavirus OC43 PCR Not Detected (Not Detect.); RSV PCR Not Detected (Not Detect.); Rhino/Enterovirus PCR Not Detected (Not Detect.)
[2025-07-09 12:15] LABS: Influenza A H1 PCR Not Detected (Not Detect.); Influenza A H1-2009 PCR Not Detected (Not Detect.); Influenza A H3 PCR Not Detected (Not Detect.); SARS-CoV-2 PCR Not Detected (Not Detect.)
== END 2025-07-09 08:05 | disposition home or self-care (01) ==
LOC: HO.LNP 08:04
PROVIDERS: PCP Internal Medicine; Visit Provider Physician Assistant Medical
DX: J02.9 Acute pharyngitis, unspecified (principal); R09.81 Nasal congestion; R05.9 Cough, unspecified; R51.9 Headache, unspecified; M79.10 Myalgia, unspecified site
CPT/HCPCS: 87633; 87880

== ENCOUNTER 2025-07-09 08:04 | Outpatient (AMB) | payer OTHER, SELFPAY ==
--- NOTE | 2025-07-09 08:08 | MHC.OFFWIV ---
Intake Vital Signs 07/09/25 08:09 Height 5 ft 2 in Weight 202 lb 4 oz BMI 37.0 BP 110/80 Blood Pressure Location Lt brachial Position Sitting Pulse 87 Pulse Source Pulse Oximeter Temp 97.7 F Temp Source Oral Pulse Oximetry (%) 99 Intake Visit Reasons: ep sore throat cough congestion Intake Note: pt is here for sore throat, cough, and congestion since tuesday Patient Tobacco Use Status: Never used Tobacco Allergies Seasonal Allergies Allergy (Mild, Verified 07/09/25 08:13) runny nose, watery eyes Do you need a note to return to daycare/school/sports/work: Yes HPI HPI Comments History of Present Illness Details History - The patient is a 54-year-old female presenting with symptoms of a sore throat, nasal congestion, dry cough, headache, and body aches. - Symptoms began yesterday after exposure to a niece recovering from a cold. - The patient reported feeling warm but did not measure her temperature. - She has been using a throat spray and took acetaminophen for symptom relief, but these have not been effective. - The patient has a history of asthma and used her inhaler yesterday due to mild wheezing. - She received an influenza vaccination two weeks ago. - She denies CP, SOB, abd pain, n/v/d, or ear pain. Physical Exam General: Cooperative, healthy appearing, comfortable and no acute distress Orientation/consciousness: Patient oriented x3 Limitations: No limitations Head: Normal to inspection Ears: Hearing grossly normal bilaterally, external ears normal and TM's normal bilaterally Nose: Normal external nose present, normal nares present, and no nasal discharge present. Face and sinus: Sinuses tender to palpation. Mouth: Normal oral and palatal mucosa present and moist mucous membranes noted. Throat: Tonsils normal. Uvula is midline. Posterior oropharynx with erythema and no exudates. Eyes: Appearance normal, both eyes and all related structures Neck: Normal visual inspection, full ROM. No lymphadenopathy noted. Respiratory: Clear to auscultation bilaterally. Normal respiratory effort, able to speak in complete sentences. No respiratory distress, not tachypneic, no tripod positioning and no use of accessory muscles. Cardiovascular: Regular rate and rhythm. Normal S1 and S2 Skin: No rashes or lesions noted Patient was informed and verbally consented to the use of an ambient scribe for clinic note documentation during this visit [facility] Medical History (Updated 05/23/25 @ 08:42 by Jayshree Marcos MD) Tendinopathy of left shoulder Left anterior shoulder pain Hypertension Mixed dyslipidemia Vitamin D deficiency Irritable bowel syndrome with diarrhea Environmental and seasonal allergies Mild intermittent asthma Refusal of blood product Fibromyalgia Morbid obesity due to excess calories Postmenopause Tendinitis of finger of right hand Essential hypertension Dyslipidemia (high LDL; low HDL) Diabetes mellitus with hyperglycemia, without long-term current use of insulin Surgical History Hx of colonoscopy Hx of umbilical hernia repair Hx of section Family History Father No problems noted. Mother No problems noted. 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 Sexual orientation: Straight/Heterosexual Gender identity: Female Cognitive needs: No Hearing needs: No Vision needs: Yes Female Reproductive History Menstrual Age of Menarche: 10 Review of Systems Const All systems reviewed & are unremarkable except as noted in HPI and below Physical Exam Vital Signs: Last Vital Signs Temp 97.7 F 07/09/25 08:09 Pulse 87 07/09/25 08:09 BP 110/80 07/09/25 08:09 Pulse Ox 99 07/09/25 08:09 BMI result Body Mass Index 37.0 Results AMB Rapid Strep AMB Rapid Strep Negative Last Edit by Bryn Monsalve CMA on 07/09/25 08:25 Results Reviewed Results Reviewed: Laboratory Last Values Strep Scn Rapid Clinic Negative 07/09/25 08:24 Assessment & Plan Assessment & Plan (1) URI with cough and congestion: Code(s): J06.9 - Acute upper respiratory infection, unspecified Plan Most likely Upper Respiratory Tract Infection vs asthma exacerbation vs covid vs viral illness plan - Plan to test for respiratory pathogens using a respiratory panel. - Symptomatic treatment with acetaminophen and ibuprofen for fever and body aches. - Prescribed nasal spray and cough medication for symptom relief. - Patient advised to use inhaler as needed for wheezing. - follow up with PCP Orders: Orders Resp Pathogen Panel - [facility] Today J06.9 - Acute upper respiratory infection, unspecified AMB Rapid Strep Screen Today Z13.9 - Encounter for screening, unspecified Medications: New benzonatate 100 mg PO bid-tid PRN 21 caps 0RF Cough 7 days fluticasone propionate 50 mcg/actuation administer into each nostril 1 spray intranasal Q12H 16 grams 0RF Coding Level of Care Code Est Pt Level 3 (12274) Diagnoses URI with cough and congestion J06.9
[2025-07-09 08:09] VITALS: BP 110/80; PULSE 87; TEMP 36.5; O2SAT 99; BMI 37.0
== END 2025-07-09 08:51 | disposition home or self-care (01) ==
PROVIDERS: PCP Internal Medicine; Visit Provider Physician Assistant Medical
DX: Z13.9 Encounter for screening, unspecified (principal); J06.9 Acute upper respiratory infection, unspecified

== ENCOUNTER 2025-08-08 07:34 | Outpatient (AMB) | payer OTHER, SELFPAY ==
--- NOTE | 2025-08-08 07:55 | A.OFFVIS_ITS ---
Intake Visit Reasons: OV- Left shoulder pain, Neck pain Intake Note: Jessica is a 54 year old female who presents with complaints of progressively worsening neck pain which radiates down her left arm as well as intermittent left shoulder pain. At her last visit she was given a cortisone injection into her left shoulder which gave her mild relief. She describes her neck pain as sharp in nature. Her neck pain has gotten worse over the last few years in spite of continued non operative treatments. She has failed the last 6 weeks of conservative treatment which has included Tylenol, anti-inflammatory medicines, physical therapy exercises and a home exercise program. She also reports intermittent weakness in her left arm. Allergies Seasonal Allergies Allergy (Mild, Verified 08/08/25 08:05) runny nose, watery eyes Medication List - Last Reconciled 08/08/25 by Deacon Suresh MD albuterol sulfate 2.5 mg (3 mL) inhalation QID PRN albuterol sulfate 90 mcg/actuation 2 puffs PO QID PRN benzonatate 100 mg PO bid-tid PRN 7 days blood sugar diagnostic (FreeStyle Lite Strips) check fasting blood sugar twice a day before a meal blood sugar diagnostic (FreeStyle Lite Strips) Check fasting blood sugar twice a day before meals blood-glucose meter (FreeStyle Lite Meter kit) Fasting glucose twice a day before meals and keep a record enalapril maleate 10 mg PO DAILY fluticasone propionate 50 mcg/actuation 1 spray intranasal Q12H Jardiance (empagliflozin) 10 mg PO QAM NS loratadine 10 mg PO DAILY metformin 1,000 mg PO BID rosuvastatin 10 mg PO DAILY tirzepatide 5 mg (0.5 mL) subcut QWEEK 30 days tizanidine 4 mg PO BEDTIME PRN PFSH Medical History (Updated 08/08/25 @ 08:27 by Deacon Suresh MD) Tendinopathy of left shoulder Left anterior shoulder pain Hypertension Mixed dyslipidemia Vitamin D deficiency Irritable bowel syndrome with diarrhea Environmental and seasonal allergies Mild intermittent asthma Refusal of blood product Fibromyalgia Morbid obesity due to excess calories Postmenopause Tendinitis of finger of right hand Essential hypertension Dyslipidemia (high LDL; low HDL) Diabetes mellitus with hyperglycemia, without long-term current use of insulin Surgical History Hx of colonoscopy Hx of umbilical hernia repair Hx of section Family History Father No problems noted. Mother No problems noted. 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 Sexual orientation: Straight/Heterosexual Gender identity: Female Cognitive needs: No Hearing needs: No Vision needs: Yes Female Reproductive History Menstrual Age of Menarche: 10 Physical Exam Neck Other: Cervical spine examination shows positive Spurling's test, pain with range of motion, left-sided paraspinal muscle tenderness, 4/5 strength with testing of her left biceps and wrist extensors when compared to 5/5 strength on her right side Extrem Other: Left shoulder examination shows slightly decreased range of motion when compared to her right shoulder, positive impingement signs, no instability Assessment & Plan Assessment & Plan (1) Neck pain on left side: Code(s): M54.2 - Cervicalgia Category: Medical Plan Ms. Lo presents with progressively worsening neck pain which radiates down her left arm as well as associated left arm weakness possibly due to cervical stenosis or a disc herniation. Thus, I will send the patient for an MRI of her cervical spine for further evaluation. I will see her back once the MRI is completed. She will contact me prior to that time should her symptoms worsen in any way. Feel free to call me at any time should questions regarding her ort hopedic management arise. I spent 21 minutes in reviewing the patient's records and imaging studies, seeing the patient and documenting in the medical record. Orders: Orders MR cervical spine wo con 08/09/25 M54.2 - Cervicalgia Medications: New methylprednisolone (Medrol (Zbigniew)) PO PER PKG DIR 21 ea 0RF Coding Level of Care Code Est Pt Level 3 (95814) Complex EM visit Add On G2211 Diagnoses Neck pain on left side M54.2
== END 2025-08-08 08:26 | disposition home or self-care (01) ==
LOC: HO.HOS 07:35
PROVIDERS: PCP Internal Medicine; Visit Provider Orthopaedic Surgery
DX: M54.2 Cervicalgia (principal)
CPT/HCPCS: 99213

== ENCOUNTER 2025-08-19 08:05 | Outpatient (AMB) | payer OTHER, SELFPAY ==
--- NOTE | 2025-08-19 09:02 | A.OFFPC_ITS ---
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 [employer] Required: No Allergies Seasonal Allergies Allergy (Mild, Verified 08/19/25 09:51) runny nose, watery eyes Medication List - Last Reconciled 08/19/25 by Jayshree Marcos MD albuterol sulfate 2.5 mg (3 mL) inhalation QID PRN albuterol sulfate 90 mcg/actuation 2 puffs PO QID PRN blood sugar diagnostic (FreeStyle Lite Strips) check fasting blood sugar twice a day before a meal blood sugar diagnostic (FreeStyle Lite Strips) Check fasting blood sugar twice a day before meals blood-glucose meter (FreeStyle Lite Meter kit) Fasting glucose twice a day before meals and keep a record enalapril maleate 10 mg PO DAILY fluticasone propionate 50 mcg/actuation 1 spray intranasal Q12H Jardiance (empagliflozin) 10 mg PO QAM NS loratadine 10 mg PO DAILY metformin 1,000 mg PO BID rosuvastatin 10 mg PO DAILY tirzepatide 5 mg (0.5 mL) subcut QWEEK 30 days tizanidine 4 mg PO BEDTIME PRN Tobacco use date assessed: 08/19/25 Dental Screening Dental Screen Date: 08/19/25 Did you have a dental visit in the last 12 months?: Yes Did you have a dental problem in the last 6 months where you did not have access to dental care?: No Was dental information given to patient?: Patient has dentist HPI annual exam HPI Details The patient is a 54 year old individual presenting for her physical exam and management of chronic conditions including diabetes mellitus, hypercholesterolemia, and chronic pain. Regarding the patient's type 2 diabetes mellitus, the last A1c showed improvement, and blood glucose levels are maintained in the 130s. Current medications include Jardiance 10 mg, which causes increased urination and thirst, metformin twice daily, and Mounjaro 5 mg, which was recently switched from Trulicity. The patient denies bloating, constipation, or vision changes with Mounjaro and reports weight loss. The patient sees an eye doctor annually at [facility]. For hypercholesterolemia, the patient takes rosuvastatin 10 mg and cholesterol levels are very good. The patient denies any muscle pain associated with this medication. The patient has a history of fibromyalgia and significant chronic right shoulder pain. The patient has been attending physical therapy at [facility], which includes trigger point therapy and exercises, but reports persistent pain that shoots down the arm. The patient experiences tingling in the hands during trigger point treatment. An orthopedist administered a cortisone injection and ordered an MRI of the neck to evaluate for a cervical etiology for the pain, which has not yet been scheduled. A prior shoulder MRI from March revealed tendinitis, a small tear, and degenerative joint disease of the acromioclavicular joint, for which surgery was not indicated. The patient also reports low back pain, which is managed with a lumbar support, and degenera tive joint disease in one knee. The patient believes these musculoskeletal issues may stem from a past fall from a roof onto cement in [place]. She received a flu shot and is up to date on pneumonia, shingles, and tetanus vaccinations. The last colonoscopy in 2020 was normal, showing only hemorrhoids, with the next one due in 10 years. The patient needs to schedule a mammogram for this year and will consider a bone density scan after age 59. [facility] Medical History (Updated 08/26/25 @ 00:11 by Jayshree Marcos MD) Tendinopathy of left shoulder Left anterior shoulder pain Hypertension Mixed dyslipidemia Vitamin D deficiency Irritable bowel syndrome with diarrhea Environmental and seasonal allergies Mild intermittent asthma Refusal of blood product Fibromyalgia Morbid obesity due to excess calories Postmenopause Tendinitis of finger of right hand Essential hypertension Dyslipidemia (high LDL; low HDL) Diabetes mellitus with hyperglycemia, without long-term current use of insulin Surgical History Hx of colonoscopy Hx of umbilical hernia repair Hx of section Family History Father No problems noted. Mother No problems noted. 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 Sexual orientation: Straight/Heterosexual Gender identity: Female Cognitive needs: No Hearing needs: No Vision needs: Yes Female Reproductive History Menstrual Age of Menarche: 10 Questionnaire Thrive Questionnaire Date Thrive assessed: 02/18/25 I am a: Patient What is your living situation today?: I have a steady place to live Within the past 12 months, did the food you bought not last and you didn't have the money to get more?: Never true Within the past 12 months, did you worry whether your food would run out before you got money to buy more?: Never true Do you have trouble paying for medicines?: No Do you have trouble getting transportation to medical appointments?: No Do you have trouble paying your heating and electricity bill?: No Do you have trouble taking care of your child, family member or friend?: No Do you have trouble with day-to-day activities such as bathing, preparing meals, shopping, managing finances, etc.?: No Are you currently unemployed and looking for a job?: No Are you interested in more education?: No Please select the resources that you would like help with: None Currently or been in a relationship where the following occur: No concerns reported THRIVE Score: 0 KAMRAN-7 AMB Questionnaire KAMRAN-7 Date KAMRAN - 7 assessed: 02/19/25 Feeling nervous, anxious, or on edge: 0 = Not at all Not being able to stop or control worryin = Not at all Worrying too much about different things: 0 = Not at all Trouble relaxin = Not at all Being so restless that it is hard to sit still: 0 = Not at all Becoming easily annoyed or irritable: 0 = Not at all Feeling afraid as if something awful might happen: 0 = Not at all Total KAMRAN-7 score (0-4 normal; 5-9 mild; 10-14 moderate; 15-21 severe): 0 Source: Developed by Drs. Paul Ramirez, Yue RomanLuis and colleagues, with an educational billy from [employer]. ACT Questionnaire In the past 4 weeks, how much of the time did your asthma keep you from getting as much done at work, school or at home?: None of the time During the past 4 weeks, how often have you had shortness of breath?: Not at all During the past 4 weeks, how often did your asthma symptoms wake you up at night or earlier than usual in the morning?: Not at all During the past 4 weeks, how often have you had to use your rescue inhaler or nebulizer medication?: Once a week or less How would you rate your asthma control during the past 4 weeks?: Well controlled ACT Interpretation: Negative Score: 23 Review of Systems Const Denies fever(s), Denies frequent falls, Denies headache(s), Reports lethargy, Denies weakness and Reports weight loss Eyes Details: Currently being followed at [facility] and gets eye exam yearly, last 1 done in February showed no retinopathy Reports blurry vision and Reports requires corrective lenses ENT Denies dizziness, Denies headache(s), Denies nasal congestion and Denies sore throat Card Denies chest pain, Denies syncope, Denies irregular heart rhythm, Denies leg edema, Denies radiating jaw, neck or arm pain and Denies dyspnea Resp Denies chest congestion, Denies cough, Denies dyspnea and Denies wheezing GI Denies abdominal pain, Denies melena, Denies bloating, Denies hematochezia, Denies change in bowel habits, Denies heartburn, Denies nausea and Denies vomiting Denies hematuria, Denies urinary frequency, Denies difficulty voiding, Denies dysuria and Denies urinary incontinence Musc Reports as per HPI, Denies abnormal gait, Reports arthralgias (Occasional in hips, knees), Reports stiffness and Denies tingling Skin/Breast Denies rash Neuro Denies abnormal gait, Denies dizziness, Denies syncope, Denies frequent falls, Denies headache(s), Denies Sensory deficit (Neuro), Denies tingling, Denies paresthesias and Denies weakness Psych Reports no additional complaints Endo Reports no additional complaints Kamran/Lymph Reports no additional complaints Aller/Immun Denies wheezing Physical exam (Primary Care) Vital Signs: Last Vital Signs Temp 97.6 F 08/19/25 09:30 Pulse 96 08/19/25 09:30 Resp 16 08/19/25 09:30 BP 100/64 08/19/25 09:30 Pulse Ox 98 08/19/25 09:30 Oxygen Delivery Method Room Air 08/19/25 09:30 BMI result Body Mass Index 36.4 Tobacco/Smoking Status: Tobacco use Status Tobacco use date assessed 08/19/25 08/19/25 09:35 Patient Tobacco Use Status Never used Tobacco 08/19/25 09:03 e-Cigarette/Vaping Use Never Used 08/19/25 09:03 Thrive Assessment: Date of Thrive Assessment Date Thrive assessed 02/18/25 08/19/25 09:03 Currently or been in a relationship where the following occur: No concerns reported Const General: no acute distress Nutritional Appearance: obese Orientation/consciousness: patient oriented x3 HENMT Head: Yes normocephalic Ears: external ears normal General nose exam: Normal nares present Mouth: moist mucous membranes Eyes Pupils: Equal, round and reactive pupils present EOM: EOMs intact bilaterally Direct Ophthalmoscopy: normal light reflex Neck Neck: Yes full ROM and Yes no lymphadenopathy Chest Breast/axilla palpation: normal palpation of the breasts Resp Effort & Inspection: normal respiratory effort and able to speak in complete sentences Auscultation: clear to auscultation bilaterally, no crackles, no rales, no rhonchi and no wheezes Cardio Heart sounds: S1 normal heart sound present and S2 normal heart sound present GI Palpation (GI): Soft to palpation, nontender and no guarding Auscultation: normal bowel sounds Rectal Exam - Female: deferred General: Yes no CVA tenderness Back/Spine/Pelvis Back: no CVA tenderness and No back tenderness Skin General skin exam: no rashes or lesions noted Neuro General: patient oriented x3, gait normal and moves all extremities Cranial nerves: Yes Equal, round and reactive pupils present Motor exam (neuro): 5/5 motor strength present throughout Sensory Exam: No Sensory deficit (Neuro) Extrem General: Yes full ROM and Yes capillary refill normal Psych Appearance: grossly normal Mental Status: mental status grossly normal Speech and movement: Normal speech and movement present Affect: normal affect Coding Level of Care Code Est Pt Prev Care 40-64y([id number]) Diagnoses Type 2 diabetes mellitus with hyperglycemia, without long-term current use of insulin E11.65 Diabetes mellitus type: type 2 Mixed dyslipidemia E78.2 Rotator cuff insufficiency of left shoulder M25.312 Fibromyalgia M79.7 Annual visit for general adult medical examination with abnormal findings Z00.01 Mild intermittent asthma J45.20 Additional Codes Asthma Control Questionnaire - ACT Interpretation: Negative ([id number]) Assessment & Plan Assessment & Plan (1) Diabetes mellitus with hyperglycemia, without long-term current use of insulin: Comment: NIDDM Code(s): E11.65 - Type 2 diabetes mellitus with hyperglycemia Category: Medical Qualifiers: Diabetes mellitus type: type 2 Qualified Code(s): E11.65 - Type 2 diabetes mellitus with hyperglycemia (2) Mixed dyslipidemia: Code(s): E78.2 - Mixed hyperlipidemia Category: Medical (3) Rotator cuff insufficiency of left shoulder: Code(s): M25.312 - Other instability, left shoulder Category: Medical (4) Fibromyalgia: Code(s): M79.7 - Fibromyalgia Category: Medical (5) Annual visit for general adult medical examination with abnormal findings: Code(s): Z00.01 - Encounter for general adult medical examination with abnormal findings (6) Mild intermittent asthma: Code(s): J45.20 - Mild intermittent asthma, uncomplicated Category: Medical Plan 1. Type 2 Diabetes Mellitus The patient's A1c is improving, and glucose levels are maintained in the target range. The patient will continue the current regimen of Jardiance 10 mg daily, metformin twice daily, and Mounjaro 5 mg weekly. Plan includes ordering labs for A1c, comprehensive metabolic panel, vitamin D, and a urinalysis to monitor. Goes to [facility] for her diabetes retinopathy screening 2. Hypercholesterolemia Well-controlled on rosuvastatin 10 mg with no adverse effects reported. A cholesterol panel will be checked with the scheduled lab work. 3. Chronic Right Shoulder Pain with Rotator Cuff Tendinopathy Pain persists despite physical therapy and a previous cortisone injection. An MRI of the neck has been ordered by orthopedics to rule out a cervical spine etiology. The patient will follow up with orthopedics after the MRI and was advised to avoid sleeping on the affected side. 4. Fibromyalgia Managed with as-needed tizanidine for severe pain, which the patient finds effective. A refill for tizanidine has been sent to the pharmacy. Weight loss is encouraged to alleviate knee symptoms, and the patient should continue home exercises and the use of a lumbar support as needed. 5. Annual visit for general medical exam with abnormal findings The patient is up to date on most immunizations but was advised to get the updated COVID-19 vaccine. We discussed the RSV vaccine, which the patient will consider due to the diabetes diagnosis. The patient was instructed to schedule an appointment for a mammogram. [facility] to schedule an appointment for her routine pelvic exam and Pap smear 6. Mild intermittent asthma Continue use of albuterol inhaler to use as needed episodes of bronchospasm and wheezing. Patient was informed and verbally consented to the use of an ambient scribe for clinic note documentation during this visit. Medications: Refilled tizanidine 4 mg PO BEDTIME PRN 20 tabs 0RF left shoulder tendinopathy
[2025-08-19 09:30] VITALS: BP 100/64; PULSE 96; RESP 16; TEMP 36.4; O2SAT 98; BMI 36.4
== END 2025-08-19 10:34 | disposition home or self-care (01) ==
LOC: HO.HMCC 08:06
PROVIDERS: PCP Internal Medicine; Visit Provider Internal Medicine
DX: E11.65 Type 2 diabetes mellitus with hyperglycemia (principal); E78.2 Mixed hyperlipidemia; M25.312 Other instability, left shoulder; M79.7 Fibromyalgia; Z00.01 Encounter for general adult medical examination with abnormal findings; J45.20 Mild intermittent asthma, uncomplicated

== ENCOUNTER → 2025-08-19 08:05 | Outpatient (BNVA) | payer OTHER, SELFPAY | PROVIDERS: PCP Internal Medicine; Visit Provider Internal Medicine | DX: Z00.01 Encounter for general adult medical examination with abnormal findings (principal); J45.20 Mild intermittent asthma, uncomplicated; E78.2 Mixed hyperlipidemia; E11.65 Type 2 diabetes mellitus with hyperglycemia; M25.312 Other instability, left shoulder; M79.7 Fibromyalgia | CPT/HCPCS: 96160 ==

== ENCOUNTER 2025-09-06 14:02 | Outpatient (REF) | payer OTHER, SELFPAY ==
[2025-09-06 17:13] LABS: Resp Syncy Virus RNA Qual PCR NEGATIVE (Negative); SARS COV2 PCR INHOUSE NEGATIVE (Negative)
== END 2025-09-06 14:03 | disposition home or self-care (01) ==
LOC: HO.LNP 14:02
PROVIDERS: Physician Assistant; PCP Internal Medicine
DX: J06.9 Acute upper respiratory infection, unspecified (principal); R09.89 Other specified symptoms and signs involving the circulatory and respiratory systems
CPT/HCPCS: 87637; 87880

== ENCOUNTER 2025-09-06 14:02 | Outpatient (AMB) | payer OTHER, SELFPAY ==
--- NOTE | 2025-09-06 14:03 | AM.OFFWIN_ITS ---
Intake Vital Signs 09/06/25 14:04 Height 5 ft 2 in Weight 202 lb BMI 36.9 BP 102/78 Blood Pressure Location Lt brachial Position Sitting Pulse 120 H Pulse Source Pulse Oximeter Temp 97.7 F Temp Source Oral Pulse Oximetry (%) 96 Oxygen Delivery Method Room Air Intake Visit Reasons: EP Cold symptoms, sore throat Intake Note: Patient presents c/o sinus congestion, chest congestion, SOB/wheezing, sore throat, cough, fatigue x2 days. Patient Tobacco Use Status: Never used Tobacco Allergies Seasonal Allergies Allergy (Mild, Verified 09/06/25 14:08) runny nose, watery eyes HPI HPI Comments History of Present Illness Details History - The patient is a 54 year old female pr esenting with congestion, cough, sore throat, and fatigue x 2 days. - Her symptoms began on Tuesday night and she started feeling more ill yesterday. - She reports feeling congested with a c ough that she feels in her chest, and a sore throat that has mostly resolved but is irritated by coughing. - She is experiencing fatigue, which she notes is unusual for her when she is sick. - She denies nausea, vomiting, abdominal pain, and swollen lymph nodes. - She has been managing her symptoms by drinking hot tea with honey and taking Zicam, and Mucinex. - The patient has a history of asthma an d has an albuterol inhaler. - She also has a nebulizer machine, but the solution for it was prescribed in July of last year and is likely . - She has had COVID-19 once before, afte r a trip to [place], and was treated with Paxlovid.. - She takes Claritin daily for allergies . - Regarding her diet, she has had poor o ral intake today, consuming only a bagel for breakfast, but has been drinking a lot of water and caffeine-free tea. - The patient has no children at home. [facility] Medical History (Updated 09/06/25 @ 14:17 by Becca Hernandez PA-C) URI, acute Tendinopathy of left shoulder Left anterior shoulder pain Hypertension Mixed dyslipidemia Vitamin D deficiency Irritable bowel syndrome with diarrhea Environmental and seasonal allergies Mild intermittent asthma Refusal of blood product Fibromyalgia Morbid obesity due to excess calories Postmenopause Tendinitis of finger of right hand Essential hypertension Dyslipidemia (high LDL; low HDL) Diabetes mellitus with hyperglycemia, without long-term current use of insulin Surgical History Hx of colonoscopy Hx of umbilical hernia repair Hx of section Family History Father No problems noted. Mother No problems noted. 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 - HEENT: Reports pharyngitis, cough, and head congestion, particularly at night. Denies sinus pain or swollen lymph nodes. - Respiratory: Reports chest congestion. Denies hemoptysis or shortness of breath. - Gastrointestinal: Reports poor appetite. Denies nausea, vomiting, or abdominal pain. - Skin: Reports a history of pruritus with Paxlovid. All systems reviewed and are unremarkable except as noted in HPI Physical Exam Exam Exam: Physical Exam General: Cooperative, healthy appearing, comfortable and no acute distress, but appears fatigued Orientation/consciousness: Patient oriented x3 Limitations: No limitations Head: Normal to inspection Ears: Hearing grossly normal bilaterally, external ears normal, EAC's normal bilaterally and TM's normal bilaterally Nose: Normal external nose present, Normal nares present and No nasal discharge present Face and sinus: Normal facial exam and sinuses nontender Mouth: Normal oral and palatal mucosa present and moist mucous membranes Throat: tonsils normal, no exudates, uvula midline, posterior oropharynx erythema Eyes: Appearance normal, both eyes and all related structures Neck: Normal visual inspection, full ROM Respiratory: Clear to auscultation bilaterally. Normal respiratory effort, able to speak in complete sentences, actively coughing, no respiratory distress, not tachypneic, no tripod positioning and no use of accessory muscles Cardiovascular: tachycardic rate and regular rhythm. Normal S1 and S2, Skin: No rashes or lesions noted Neuro: Patient oriented x3 Extremities: Normal to inspection and Yes no clubbing, cyanosis or edema Vital Signs: Last Vital Signs Temp 97.7 F 09/06/25 14:04 Pulse 120 H 09/06/25 14:04 BP 102/78 09/06/25 14:04 Pulse Ox 96 09/06/25 14:04 Oxygen Delivery Method Room Air 09/06/25 14:04 BMI result Body Mass Index 36.9 Results AMB Rapid Strep AMB Rapid Strep Negative Last Edit by Marni Callahan CMA on 09/06/25 14: 26 Results Reviewed Results Reviewed: Laboratory Last Values Strep Scn Rapid Clinic Negative 09/06/25 14:25 Assessment & Plan Assessment & Plan (1) URI, acute: Code(s): J06.9 - Acute upper respiratory infection, unspecified Plan: Patient was informed and verbally consented to the use of an ambient scribe for clinic note documentation during this visit. - VSS, pt well appearing and PE unremarkable. - The patient's symptoms of congestion, cough, and pharyngitis are consistent with an acute upper respiratory infection. - A rapid strep swab was performed to rule out a bacterial infection, it was negative. - Flu, Covid and RSV testing has been performed. - Due to the nature of the symptoms, COVID-19 is also suspected, and if the patient tests positive, a prescription for Paxlovid will be sent, as she is agreeable to taking it. - The tachycardia is noted and could be related to dehydration, encouraged increase fluid intake and ensure HR goes < 100BPM. The patient was advised to increase fluid intake and continue her daily Claritin to help dry up secretions. - The patient reports a cough that is disruptive, especially at night. A prescription for Tessalon Perles was provided to be taken before bed to suppress the cough and allow for rest. The patient was counseled to keep this medication away from children due to potential toxicity. - The patient has a history of asthma and possesses a rescue albuterol inhaler. - She was advised to use the inhaler as needed for shortness of breath. - As her nebulizer solution is likely , a new prescription will be sent to her pharmacy for use with her nebulizer machine if the inhaler is not sufficient. Orders: Orders AMB Rapid Strep Screen Today Z13.9 - Encounter for screening, unspecified SARS-CoV2/FLU/RSV Today R09.89 - Other specified symptoms and signs involving the circulatory and respiratory systems Medications: New benzonatate DO NOT ALLOW CHILDREN TO HAVE ACCESS TO THIS MEDICATION IT IS DANGEROUS FOR CHILDREN. 200 mg PO BEDTIME PRN 10 caps 0RF cough Refilled albuterol sulfate 2.5 mg (3 mL) inhalation QID PRN 75 mL 2RF shortness of breath or wheezing J45.20 - Mild intermittent asthma, uncomplicated Coding Level of Care Code Est Pt Level 4 (11376) Diagnoses URI, acute J06.9
[2025-09-06 14:04] VITALS: BP 102/78; PULSE 120; TEMP 36.5; O2SAT 96; BMI 36.9
== END 2025-09-06 14:47 | disposition home or self-care (01) ==
PROVIDERS: PCP Internal Medicine; Visit Provider Physician Assistant
DX: Z13.9 Encounter for screening, unspecified (principal); J06.9 Acute upper respiratory infection, unspecified

== ENCOUNTER 2025-09-21 10:47 | Outpatient (REF) | payer OTHER, SELFPAY ==
--- NOTE | ~2025-09-21 | MR_ITS ---
EXAMINATION: MR CERVICAL SPINE WITHOUT CONTRAST CLINICAL INFORMATION: 54-year-old female, neck pain, headaches. COMPARISON: None TECHNIQUE: Multiplanar multisequence MR imaging of the cervical spine was done prior to and without the administration IV gadolinium. Examination was performed on a 1.5 Lauren Siemens unit, using standard sequences. FINDINGS: CORONAL ALIGNMENT: -Normal. SAGITTAL ALIGNMENT: -Very slight reversal of the normal lordosis centered at C5. -No subluxations of significance. CRANIOCERVICAL JUNCTION/C1-2 ARTICULATIONS: -Intact and aligned. Mild degenerative changes in the anterior atlantoaxial joint. VERTEBRAL BODIES/BONE MARROW: -There are no compression deformities, acute fractures, or regions of bone marrow edema. There is a hemangioma in the superior aspect of the T1 vertebral body. DISCS: -Mild to moderate loss of disc height and signal at C5-6 and C6-7. -There is otherwise only mild loss of disc signal without significant loss of disc height. CERVICAL CORD: -The cervical cord is normal in caliber and signal throughout. There is no thinning, expansion, or other abnormality. There is no evidence of cord impingement. PARAVERTEBRAL SOFT TISSUES: -There is no abnormal paraspinous or paravertebral edema or soft tissue swelling. No prevertebral abnormality is evident. -The thyroid is obscured by a saturation band. VISUALIZED INTRACRANIAL STRUCTURES: -Imaged posterior fossa structures appear normal. Preserved flow voids in the bilateral vertebral arteries. The sella is normal in appearance. The cerebellar tonsils are appropriately located. AXIAL DISC SPACE IMAGING: C2-C3: There is no central canal or neural foraminal narrowing. C3-C4: Minimal bilateral uncinate spurring present. There is minimal bilateral neural foraminal narrowing. There is no central canal narrowing. C4-C5: Minimal bilateral uncinate spurring present. There is minimal bilateral neural foraminal narrowing. There is no central canal narrowing. C5-C6: Shallow diffuse disc bulge is present, slightly asymmetric to the left lateral recess, and contiguous with mild bilateral uncinate spurring. Early facet hypertrophic arthropathy. Minimal central canal narrowing. Mild bilateral neural foraminal narrowing. C6-C7: There is a shallow concentric disc bulge present, contiguous with bilateral uncinate spurring. There is mild bilateral hypertrophic facet spurring. Combination of findings is resulting in minimal central canal narrowing, and mild bilateral neural foraminal narrowing. C7-T1: There is no central canal or neural foraminal narrowing. T1-T4: There is no central canal or neural foraminal narrowing. MR/MR cervical spine wo con IMPRESSION: 1. There is mild spondylosis most notable at C5-6 and C6-7. There is no evidence of significant central canal stenosis, neural foraminal stenosis, or cord signal abnormality. Electronically signed by: Sanjiv Hernandez MD 09/23/2025 09:00 AM [facility]
== END 2025-09-21 10:48 | disposition home or self-care (01) ==
LOC: HO.MRI 10:47
PROVIDERS: PCP Internal Medicine; Visit Provider Orthopaedic Surgery
DX: M54.2 Cervicalgia (principal)
CPT/HCPCS: 72141

== ENCOUNTER → 2025-09-21 10:51 | Outpatient (BNV) | payer OTHER, SELFPAY | PROVIDERS: PCP Internal Medicine; Visit Provider Radiology Diagnostic Radiology | DX: M47.812 Spondylosis without myelopathy or radiculopathy, cervical region (principal); M54.2 Cervicalgia | CPT/HCPCS: 72141 ==